=== PATIENT | male | born 1955 | race Caucasian/White ===

== ENCOUNTER → 2018-03-14 11:17 | Outpatient (CLI) | payer MEDICARE, OTHER, SELFPAY ==
[2017-11-27 07:33] VITALS: BMI 29.5
[2018-03-14 14:34] LABS: Hemoglobin A1c 5.4 % (4.2-6.3)
[2018-03-14 14:39] LABS: Anion Gap 9 (5-15); BUN 21 mg/dL (7-18); BUN/Creat Ratio 18.3 RATIO (10-20); Chloride 107 mmol/L (98-107); Cholesterol 165 mg/dL (200); Creatinine, Serum 1.15 mg/dL (0.70-1.30); EST Glomerular Filtration Rate 68 mL/min (>60); Est Glom Filt Rate - Afr Amer 82 mL/min (>60); Glucose 108 mg/dL (74-106); High Density Lipoprotein 67 mg/dL; PSA,Total - Annual Screen 0.82 ng/mL (0.00-4.00); Potassium 3.4 mmol/L (3.5-5.1); Sodium Level 142 mmol/L (136-145); Thyroid Stim Hormone (TSH) 3.55 uIU/mL (0.358-3.74); Triglycerides 135 mg/dL; Very Low Density Lipoprotein 27 mg/dL (5-40)
== END ==
PROVIDERS: Family Provider Family Medicine; PCP Family Medicine; Visit Provider Family Medicine
DX: R73.09 Other abnormal glucose (principal); E03.9 Hypothyroidism, unspecified; E78.00 Pure hypercholesterolemia, unspecified; Z12.5 Encounter for screening for malignant neoplasm of prostate; I10 Essential (primary) hypertension
CPT/HCPCS: 36415; 80048; 80061; 83036; 84153; 84443; G0103

== ENCOUNTER 2018-09-20 19:49 | Inpatient (IN) | payer MEDICARE, OTHER, SELFPAY ==
[2018-09-20] VITALS (7 sets, daily range): BP systolic 131–177; BP diastolic 86–140; PULSE 99–167; RESP 15–32; TEMP 36.6–36.8; O2SAT 97–100; BMI 29.5; BMI 27.3
[2018-09-20] MEDS: Famotidine 20mg IV Push Syringe Q24 300 MG IV (19:58)
[2018-09-20] MEDS: DiphenhydrAMINE 50 MG/ML Syringe 25 MG IV (20:00)
[2018-09-20] MEDS: MethylPREDNISolone 125 MG/2 ML Vial IV (20:00)
--- NOTE | 2018-09-20 20:02 | ED.VISSUMM ---
- ER Visit Summary Date of Service: 09/20/18 Chief Complaint: Allergic reaction with swelling of his eyes lips and tongue. Patient states this occurred within the last hour. History of Present Illness: The patient is a 63 M history of A. fib, TIA and hypertension. Currently on Eliquis for A. fib. He is also on an TAMI inhibitor for his blood pressure. States he never had a reaction like this before. Within the last hour he has had initially itching of his eyes and then they began swelling along with his lips and tongue. Squad was called. They gave him IM epinephrine. And IV Benadryl. He states he is starting to feel somewhat better. He denies any chest pain or shortness of breath. Physical Examination: Older male vital signs initial blood pressure 166/40 afebrile. Heart rate 137 pulse ox 100% on 100% mask. HEENT exam patient has periorbital swelling. Swelling of his lips and tongue and submental region. Currently his airway is patent. He cannot open his mouth about 2 fingerbreadths. Neck is nontender. Trachea midline. Lungs clear to auscultation bilaterally. Heart tachycardic rate about 1 30-1 40 no murmur. Chest wall nontender. Abdomen soft nontender. Patient is moving all 4 extremities. He has trace edema in both lower extremities. Neurologically is awake and alert with no focal motor deficits. Test Results: CBC hemogram shows a white count of 6. Hemoglobin 16. Electrolytes unremarkable except glucose 172. Creatinine 1.7 which is worse than his baseline. Troponin normal. EKG A. fib RVR with a rate of 140 with a rate dependent ST depression. Emergency Department Course and Treatment: Patient is having either an TAMI inhibitor induced reaction called angioneurotic edema or acute allergic reaction. He needs to be watched very carefully. If he gets worse at all we will have to place a endotracheal tube. At this time is maintaining his airway. I want to see if he has additional positive results with the medications. We have also given him IV Solu-Medrol, Pepcid and additional Benadryl. Multiple repeat exams over the patient's emergency department course. He is progressively getting better with his multiple medications. He was also given Cardizem for his A. fib RVR his rate is currently 90. Patient looks a lot better. The swelling of his lips and tongue is more than 50% improved. His eyes are less swollen. He is having no trouble breathing whatsoever. Treatment Plan: Discussed at length with both he and his . This could be an acute anaphylactic reaction to mushrooms or it may be an angioneurotic edema from the TAMI inhibitor. I would consider it and treated for both. I would stop the TAMI inhibitor. No changes blood pressure medication I explained that there are them. I spoken to the hospitalist will put him in the PCU. Disposition: Admission Impression: Acute allergic reaction with swelling of the lips tongue and eyes (TAMI inhibitor induced angioneurotic edema versus acute anaphylaxis) A. fib RVR Anticoagulated on Eliquis. This note was generated with [employer] dictation software. It may contain incorrect words, spelling, and punctuation that were not noted in review of the chart prior to signing ED Disposition - Plan for ED Patient: Referrals: Russ Andre MD [Primary Care Provider] -
--- NOTE | 2018-09-20 20:23 | ED.RN ---
CALLED FOR EKG PER RN REQUEST, PULLED OLD EKGS FOR
[2018-09-20 20:40] LABS: Absolute Lymphocyte Count 3.06 X10^3/ul (0.83-4.51); Absolute Neutrophil Count 3.4 X10^3/uL (2.0-7.7); Basophil# 0.02 X10^3/uL; Basophil% 0.3 % (0-1); Eosinophil# 0.11 X10^3/uL; Eosinophils% 1.6 % (0-5); Hematocrit 47.4 % (40-54); Hemoglobin 16.5 g/dl (13.0-16.5); Lymphocyte # 3.06 X10^3/ul (4.0); Lymphocyte % 44.1 % (19-41); Mean Corp Hgb Conc 34.8 g/gl (32-36); Mean Corpuscular Hgb 33.4 pg (27.0-32.0); Monocyte# 0.34 X10^3/uL; Monocyte% 4.9 % (0-10); POSITIVE COUNT NO; POSITIVE DIFFERENTIAL NO; POSITIVE MORPHOLOGY NO; Platelet Count 224 K/mm3 (150-450); RBC Distribution Width CV 13.3 % (11.6-14.6); RBC Distribution Width SD 46.4 fl (35.1-43.9); Red Blood Count 4.94 M/mm3 (4.6-6.2); White Blood Count 6.9 K/mm3 (4.4-11.0)
[2018-09-20 20:55] LABS: Anion Gap 10 (5-15); BUN 20 mg/dL (7-18); BUN/Creat Ratio 11.6 RATIO (10-20); Calcium,Total 8.8 mg/dL (8.5-10.1); Chloride 107 mmol/L (98-107); Creatinine, Serum 1.72 mg/dL (0.70-1.30); EST Glomerular Filtration Rate 43 mL/min (>60); Est Glom Filt Rate - Afr Amer 52 mL/min (>60); Estimated Creatinine Clearance 37.25 ml/min; Glucose 172 mg/dL (74-106); Potassium 3.4 mmol/L (3.5-5.1); Sodium Level 139 mmol/L (136-145)
[2018-09-20] MEDS: dilTIAZem 25 MG/5 ML Vial IV BOLUS (21:10)
--- NOTE | 2018-09-20 21:33 | PCM.HP.STD ---
Problem List (1) Anaphylactic reaction Status: Acute History of Present Illness Date of Admission: 09/20/18 Chief Complaint: swelling of lips and tongue The patient is a 63 year old M with a significant history of A. 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 Also he had swelling of her eye eyelids; itchy eyes; itchy palms; and itching under his arm. Further, he was wheezing. Her gave her Benadryl 2 times. Because she was not getting better the squad was called. The squad give him epinephrine. His symptoms started after eating a piece of the had mushroom; sausage pepperoni and a salad. At the emergency department patient was found to be in A. fib with rate in the 160s. Patient responded to Cardizem bolus that brought her heart rate into the 90s. At the emergency department patient was given Solu-Medrol; Pepcid and Benadryl. Past Medical History Past Medical History (Chronic Problems): Chronic Problems (Last Reviewed 11/27/17 @ 07:34 by Mair Quiros) Tobacco dependence in remission (Chronic) Abdominal discomfort (Chronic) Obstructive sleep apnea (Chronic) BiPAP 14/10 cmH2O Secondary pulmonary arterial hypertension (Chronic) History of left heart catheterization (Chronic ~10/19/16) Hypothyroidism (Chronic) HLD (hyperlipidemia) (Chronic) HTN (hypertension) (Chronic) Medical History: Medical History (Last Reviewed 09/21/18 @ 05:43 by Narendra Luevano MD) Tobacco dependence in remission (Chronic) F17.201 Abdominal discomfort (Chronic) R10.9 Persistent atrial fibrillation (Acute) I48.1 Obstructive sleep apnea (Chronic) G47.33 BiPAP 14/10 cmH2O Secondary pulmonary arterial hypertension (Chronic) I27.21 Hypothyroidism (Chronic) E03.9 HLD (hyperlipidemia) (Chronic) E78.5 HTN (hypertension) (Chronic) I10 Atrial fibrillation with RVR (Resolved) I48.91 TIA (transient ischemic attack) (Acute) G45.9 Near syncope (Acute) R55 Allergies banana Allergy (Verified 11/27/17 07:34) Unknown metoprolol [From Toprol XL] Adverse Reaction (Verified 11/27/17 07:34) Nausea Home Medications: Ambulatory Orders Medication Instructions Recorded Apixaban [Eliquis] 5 mg PO BID 09/19/16 Aspirin 81 mg PO DAILY 09/19/16 Levothyroxine [Synthroid] 50 mcg PO QHS 09/19/16 Omeprazole [Prilosec] 20 mg PO DAILY 09/19/16 Simvastatin [Zocor] 20 mg PO QHS 09/19/16 carvedilol 25 mg tablet 12.5 mg PO BID tab 03/15/17 Diltiazem CD [Cardizem CD] 300 mg PO DAILY 09/20/18 Quinapril HCl 20 mg PO DAILY 09/20/18 Triamterene/Hydrochlorothiazid 1 tab PO DAILY 09/20/18 [Triamterene-Hctz 37.5-25 mg Tb] Surgical History: Surgical History (Last Reviewed 09/21/18 @ 05:43 by Narendra Luevano MD) History of cardioversion (Acute) Onset Date: ~11/14/16 Z98.890 History of left heart catheterization (Chronic) Onset Date: ~10/19/16 Z98.890 History of tonsillectomy (Resolved) Z90.89 Patent ductus arteriosus (Resolved) Q25.0 closure at age 1 Lives: Spouse/ Significant Other Smoking Status: Former smoker - *Family History Maternal Family History: Family History (Last Reviewed 09/21/18 @ 05:36 by Narendra Luevano MD) Mother Hypertension Review of Systems Constitutional: Denies: Chills, Fever, Weight Change HEENT: Denies: Head Aches, Sinus Congestion, Sinus Drainage Cardiovascular: Denies: Chest Pain, Palpitations Respiratory: Reports: Wheezing. Denies: Cough, Shortness of breath at rest, Sputum production Gastrointestinal: Denies: Abdominal Pain, Nausea, Vomiting Genitourinary: Denies: Dysuria Musculoskeletal: Denies: Joint Pain, Joint Tenderness Skin: Denies: Rash, Wounds Neurological: Denies: Numbness, Tingling, Focal weakness Psychiatric: Denies: Anxiety, Depression, Homicidal Ideations, Suicidal Ideations Hematologic/ Lymphatic: Denies: Easy Bruising, Easy Bleeding VTE Information - Inpt Only VTE Present on Admission: No VTE Mechan Device Prophylaxis: None VTE Pharm Prophylaxis ordered?: No Reason prophylaxis not ordered:: Treatment Not Indicated - Continue on home eliquis for Afib. Patient Problems: Active and Suspected Problems (Last Reviewed 11/27/17 @ 07:34 by Mari Quiros) Anaphylactic reaction (Acute) - Physical Exam General: Alert, Oriented x3, Cooperative HEENT: Atraumatic, PERRLA, EOMI, Normocephalic, - - swelling of eye lids which had improved upon repeat examination. Neck: Supple, No JVD, Negative Carotid Bruits Lungs: Clear to auscultation, Normal air movement Cardiovascular: Regular rate, No murmurs Abdomen: Bowel Sounds Present, Soft, Non Tender Extremities: No edema, Capillary Refill Less than 3 Seconds Skin: No rashes, No breakdown Musculoskeletal: No Tenderness to Palpation of Joints or Extremities Neurological: Neuro grossly intact Psych/Mental Status: Normal Affect, Appropriate Vital Signs Temp Pulse Resp BP Pulse Ox 98 F 99 20 H 131/86 H 98 09/20/18 19:50 09/20/18 21:19 09/20/18 21:19 09/20/18 21:19 09/20/18 21:19 Oxygen Flow Rate (L/min) 2 Oxygen Delivery Method Nasal Cannula Weight: 80.4 kg Body Mass Index (BMI) 29.5 Laboratory Tests Past 24 Hrs 09/20/18 09/20/18 09/20/18 20:16 20:16 20:22 WBC 6.9 RBC 4.94 Hgb 16.5 Hct 47.4 MCV 96.0 H MCH 33.4 H MCHC 34.8 RDW 13.3 RDW Differential 46.4 H Plt Count 224 MPV 10.0 Immature Gran % (Auto) 0.100 Neut % (Auto) 49.0 Lymph % (Auto) 44.1 H [place] % (Auto) 4.9 Eos % (Auto) 1.6 Baso % (Auto) 0.3 Absolute Neuts (auto) 3.4 Absolute Lymphs (auto) 3.06 Total Counted Not Reportable Sodium 139 Potassium 3.4 L Chloride 107 Carbon Dioxide 22.0 Anion Gap 10 BUN 20 H Creatinine 1.72 H Estim Creat Clear Calc 37.25 Est GFR (MDRD) Af Amer 52 L Est GFR (MDRD) Non-Af 43 L BUN/Creatinine Ratio 11.6 Glucose 172 H Calcium 8.8 Troponin I < 0.015 Assessment/Plan All Active Problems (Last Reviewed 11/27/17 @ 07:34 by Mari Quiros) Anaphylactic reaction (Acute) Persistent atrial fibrillation (Acute) History of cardioversion (Acute ~11/14/16) Atrial fibrillation with RVR (Resolved) TIA (transient ischemic attack) (Acute) Near syncope (Acute) History of tonsillectomy (Resolved) Patent ductus arteriosus (Resolved) Atrial fibrillation (Acute) The patient is a 63 year old M with a significant history of A. fib with RVR with prior cardioversion; hypertension; congenital heart shunt repaired at age 1; TIA; hyperlipidemia; obstructive sleep apnea who presented to the emergency department with angioedema consistent with anaphylactic reaction that could likely be from food or from TAMI inhibitor. Anaphylactic reaction Epinephrine as needed ordered. Solu-Medrol; scheduled Benadryl; and Pepcid ordered. Admitted to PCU on telemetry. Hold quinapril for now. Afib with RVR Patient received Cardizem 20 mg IV bolus at emergency department. This controlled his heart rate temporarily. Because patient went to A. fib with RVR again we will restart Cardizem drip. Cardizem 5 mg IV bolus ordered. Last echocardiogram on 10/17/2016 among others showed mildly dilated left ventricle. Estimated ejection fraction of 50 to 55%. Mild global hypokinesis of the left ventricle. The left atrium was mildly enlarged. Right ventricular systolic pressure was estimated at 44 mmHg. Trivial mitral valve insufficiency; mild tricuspid valve insufficiency and trivial aortic valve insufficiency. Echocardiogram on 11/15/14 showed an EF of 45%. Pulmonary artery systolic pressure was 30. Patient had some valvular insufficiencies. Repeat echocardiogram ordered. Home Cardizem and Coreg continued. Eliquis continued TSH ordered. Echocardiogram ordered. Eliquis continued Hypokalemia: on presentation his potassium was 3.4. Supplementation ordered. BMP ordered. Chronic Systolic heart failure Echo as above Coreg continued Quinapril on hold secondary to angioedema Hypertension On presentation his blood pressure was not within goal Coreg continued P.o. Cardizem continued Started on Cardizem IV for A. fib which should help with blood pressure. Home triamterene?hydrochlorothiazide on hold because of MORENO. PRN clonidine ordered. Trend blood pressure and adjust blood pressure medication. MORENO On presentation his creatinine was 1.72. Creatinine baseline is around 1.2. BUN is 20. BUN over creatinine is more than 11.6. Can not rule out prerenal at this time. Gentle IV fluids. Avoid nephrotoxins. TAMI inhibitor on hold. Trend BMP. Obstructive sleep apnea BiPAP continued GERD Prilosec continued. Hypothyroidism Synthroid continued DVT prophylaxis Not indicated since patient is on Eliquis Coumadin for A. fib. Code Visit OBSV E&M: 96244 Initial observation care L3
--- NOTE | 2018-09-20 21:43 | EKG12_ITS ---
Test Reason : Blood Pressure : / mmHG Vent. Rate : 140 BPM Atrial Rate : 127 BPM P-R Int : 000 ms QRS Dur : 094 ms QT Int : 340 ms P-R-T Axes : 000 -47 255 degrees QTc Int : 519 ms Atrial fibrillation with rapid ventricular response Left anterior fascicular block ST depression, consider subendocardial injury Nonspecific T wave abnormality Abnormal ECG Confirmed by LAW ANGELES MD ([id number]), greeting card editor ARTURO MAC ([id number]) on 09/23/2018 9:32:34 AM Referred By: Narendra Luevano Confirmed By:LAW ANGELES MD
--- NOTE | 2018-09-20 23:36 | ECHOD_ITS ---
Reason For Study: AFIB/FLUTTER Procedure This was a 2D Doppler, Color Flow transthoracic echocardiogram. The study was technically difficult. Due to arrhythmia. Exam performed portable in patient room. Left Ventricle Normal LV size. Left ventricular systolic function is normal. The estimated ejection fraction is 55 %. Unable to assess diastolic dysfunction due to arrhythmia. No regional wall motion abnormalities noted. Right Ventricle Normal RV size. Normal systolic function. Atria The left atrium is moderately enlarged. The right atrium is mildly enlarged. Mitral Valve Normal mitral valve. Mild (1+) eccentric mitral valve insufficiency. Tricuspid Valve Normal tricuspid valve. Mild (1+) tricuspid valve insufficiency. Pulmonary artery systolic pressure is 38 mmHg. Aortic Valve Normal aortic valve. Trisinus/trileaflet aortic valve. Mild (1+) aortic valve insufficiency. Pulmonic Valve Normal pulmonic valve. Great Vessels Normal aortic root. The pulmonary artery is normal size. Normal inferior vena cava. Pericardium/Pleural No pericardial effusion. MMode/2D Measurements & Calculations LVIDd: 5.3 cm IVSd: 0.86 cm Ao root diam: 3.4 cm LVIDs: 3.8 cm LVPWd: 0.94 cm RVDd: 4.0 cm FS: 27.7 % LAV(MOD-bp): 86.0 ml LA A4 area: 25.8 cm2 LA dimension(2D): 5.2 cm LAV(MOD-bp) Indexed: 45.8 ml/m2 LAV(MOD-sp2): 83.9 ml LAV(MOD-sp4): 83.9 ml RA A4 area: 22.5 cm2 Doppler Measurements & Calculations MV E max timmy: 96.6 cm/sec Ao V2 max: 97.0 cm/sec LV V1 max: 77.4 cm/sec Ao max P.8 mmHg LV V1 max P.4 mmHg PA V2 max: 87.3 cm/sec TR max timmy: 287.8 cm/sec TR max P.1 mmHg Interpretation Summary Normal LV size. Left ventricular systolic function is normal. The estimated ejection fraction is 55 %. The left atrium is moderately enlarged. Unable to assess diastolic dysfunction due to arrhythmia. Mild (1+) tricuspid valve insufficiency. Ordering Physician: Narendra Luevano Referring Physician: Russ Andre Performed By: Reena Nieves RDCS, RVT
[2018-09-21] VITALS (37 sets, daily range): BP systolic 122–178; BP diastolic 75–109; PULSE 83–147; RESP 15–22; TEMP 36.6–37; O2SAT 96–100
[2018-09-21] MEDS: 0.9% Normal Saline 1,000 ML 100 ML IV (00:17)
[2018-09-21] MEDS: dilTIAZem 25 MG/5 ML Vial 5 MG IV BOLUS (00:18)
[2018-09-21] MEDS: DiphenhydrAMINE 25 MG Capsule PO ×4 (00:24→21:45)
[2018-09-21 00:36] LABS: Magnesium 1.9 mg/dL (1.6-2.6); Thyroid Stim Hormone (TSH) 6.68 uIU/mL (0.358-3.74)
[2018-09-21 06:09] LABS: Anion Gap 13 (5-15); BUN 19 mg/dL (7-18); BUN/Creat Ratio 12.9 RATIO (10-20); Calcium,Total 8.8 mg/dL (8.5-10.1); Chloride 113 mmol/L (98-107); Creatinine, Serum 1.47 mg/dL (0.70-1.30); EST Glomerular Filtration Rate 51 mL/min (>60); Est Glom Filt Rate - Afr Amer 62 mL/min (>60); Estimated Creatinine Clearance 45.21 ml/min; Glucose 188 mg/dL (74-106); Sodium Level 145 mmol/L (136-145)
[2018-09-21] MEDS: Levothyroxine 50 MCG Tablet PO (06:33)
[2018-09-21] MEDS: 0.9% NaCl Peripheral Flush Adult/Peds IV (06:34)
[2018-09-21] MEDS: Aspirin 81 MG TAB.CHEW PO (09:12)
[2018-09-21] MEDS: Pantoprazole Sodium 20 MG Tablet PO (09:13)
[2018-09-21] MEDS: Carvedilol 25 MG Tablet PO ×2 (09:13→21:45)
[2018-09-21] MEDS: dilTIAZem CD 300 MG Capsule PO (09:13)
[2018-09-21] MEDS: APIXABAN 5 MG TABLET PO ×2 (09:13→21:45)
[2018-09-21 10:13] LABS: T4 Free Direct 0.87 ng/dL (0.76-1.46)
--- NOTE | 2018-09-21 15:41 | PN_ITS ---
<Vincenzo Ang - Last Filed: 09/21/18 15:34> Patient Problems: Active and Suspected Problems (Last Reviewed 09/21/18 @ 05:43 by Narendra Luevano MD) Anaphylactic reaction (Acute) Subjective: SOB and wheezing resolved. No CP. Pt developed eye, mouth, tongue swelling, and palm and axilla itching, along with wheezing, after eating sausage and mushroom pizza. He is however, on quinipril. This has been stopped. Swelling remains resolved. He has been in Afib with RVR. This improved with cardizem drip and increased dose of carvedilol. - Physical Exam General: Alert, Oriented x3, Cooperative HEENT: Atraumatic, PERRLA, EOMI, Normocephalic Neck: Supple, No JVD, Negative Carotid Bruits Lungs: Clear to auscultation, Normal air movement Cardiovascular: No murmurs, Irregular Rate Abdomen: Bowel Sounds Present, Soft, Non Tender Extremities: No edema, Capillary Refill Less than 3 Seconds Skin: No rashes, No breakdown Musculoskeletal: No Tenderness to Palpation of Joints or Extremities Neurological: Cranial nerves II-XII grossly intact Psych/Mental Status: Normal Affect, Appropriate, Alert and oriented to time, place, person, mood and affect Vital Signs Temp Pulse Resp BP Pulse Ox 98.4 F 88 16 145/98 H 99 09/21/18 14:00 09/21/18 14:00 09/21/18 14:00 09/21/18 14:00 09/21/18 14:00 Oxygen Flow Rate (L/min) 4 Oxygen Delivery Method Room Air Weight: 169 lb 1.513 oz Body Mass Index (BMI) 27.3 Intake and Output for Last 24 Hours 09/19/18 09/20/18 09/21/18 23:59 23:59 23:59 Intake Total 996.5 / 996.5 Output Total 1100 / 1100 Balance -103.5 / -103.5 Laboratory Tests Past 24 Hrs 09/20/18 09/20/18 09/20/18 20:16 20:16 20:16 WBC 6.9 RBC 4.94 Hgb 16.5 Hct 47.4 MCV 96.0 H MCH 33.4 H MCHC 34.8 RDW 13.3 RDW Differential 46.4 H Plt Count 224 MPV 10.0 Immature Gran % (Auto) 0.100 Neut % (Auto) 49.0 Lymph % (Auto) 44.1 H [place] % (Auto) 4.9 Eos % (Auto) 1.6 Baso % (Auto) 0.3 Absolute Neuts (auto) 3.4 Absolute Lymphs (auto) 3.06 Total Counted Not Reportable Sodium 139 Potassium 3.4 L Chloride 107 Carbon Dioxide 22.0 Anion Gap 10 BUN 20 H Creatinine 1.72 H Estim Creat Clear Calc 37.25 Est GFR (MDRD) Af Amer 52 L Est GFR (MDRD) Non-Af 43 L BUN/Creatinine Ratio 11.6 Glucose 172 H Calcium 8.8 Magnesium Troponin I TSH 6.68 H Free T4 09/20/18 09/20/18 09/21/18 20:16 20:22 05:05 WBC RBC Hgb Hct MCV MCH MCHC RDW RDW Differential Plt Count MPV Immature Gran % (Auto) Neut % (Auto) Lymph % (Auto) [place] % (Auto) Eos % (Auto) Baso % (Auto) Absolute Neuts (auto) Absolute Lymphs (auto) Total Counted Sodium 145 Potassium 4.0 Chloride 113 H Carbon Dioxide 19.0 L Anion Gap 13 BUN 19 H Creatinine 1.47 H Estim Creat Clear Calc 45.21 Est GFR (MDRD) Af Amer 62 Est GFR (MDRD) Non-Af 51 L BUN/Creatinine Ratio 12.9 Glucose 188 H Calcium 8.8 Magnesium 1.9 Troponin I < 0.015 TSH Free T4 09/21/18 05:05 WBC RBC Hgb Hct MCV MCH MCHC RDW RDW Differential Plt Count MPV Immature Gran % (Auto) Neut % (Auto) Lymph % (Auto) [place] % (Auto) Eos % (Auto) Baso % (Auto) Absolute Neuts (auto) Absolute Lymphs (auto) Total Counted Sodium Potassium Chloride Carbon Dioxide Anion Gap BUN Creatinine Estim Creat Clear Calc Est GFR (MDRD) Af Amer Est GFR (MDRD) Non-Af BUN/Creatinine Ratio Glucose Calcium Magnesium Troponin I TSH Free T4 0.87 Medical Necessity - Tobacco Use Smoking Status: Former smoker Assessment/Plan All Active Problems (Last Reviewed 09/21/18 @ 05:43 by Narendra Luevano MD) Anaphylactic reaction (Acute) Persistent atrial fibrillation (Acute) History of cardioversion (Acute ~11/14/16) Atrial fibrillation with RVR (Resolved) TIA (transient ischemic attack) (Acute) Near syncope (Acute) History of tonsillectomy (Resolved) Patent ductus arteriosus (Resolved) Atrial fibrillation (Acute) 1. Anaphylaxis, suspect angioedema 2/2 quinipril - sob/wheezing/swelling/itching now resolved. Continue benadryl, solumedrol, pepcid. TSH elevated, T4 normal. Potassium normalized. 2. Afib with RVR - weaned off cardizem drip. Plan to continue increased dose of coreg and prior cardizem dose. Continue eliquis. Echo pending. Prior EF of 45% 3. HTN - improved. 4. MORENO - improved. continue gentle IV hydration 5. NANETTE - Bipap qhs DVT ppx: eliquis DC Planning: likely home tomorrow, obtain echo, trend HR/BP with med adjustments This patient was seen by Vincenzo Ang PA-C under the supervision of Dr. Bourgeois <Tej Bourgeois F - Last Filed: 09/22/18 08:35> - Physical Exam Vital Signs Temp Pulse Resp BP Pulse Ox 97.7 F L 93 18 150/86 H 94 09/22/18 06:13 09/22/18 06:45 09/22/18 06:13 09/22/18 06:13 09/22/18 06:13 Oxygen Flow Rate (L/min) 4 Oxygen Delivery Method Room Air Weight: 169 lb 1.513 oz Body Mass Index (BMI) 27.3 Intake and Output for Last 24 Hours 09/20/18 09/21/18 09/22/18 23:59 23:59 23:59 Intake Total 996.5 / 996.5 360 / 360 Output Total 1100 / 1100 Balance -103.5 / -103.5 359 / 359 Laboratory Tests Past 24 Hrs 09/21/18 05:05 Free T4 0.87 Code Visit Addendum: Dr. Bourgeois I personally examined the patient and reviewed the chart. I agree with the above. 63 yo M who is extremely allergic to bananas came in with what sounded like an anaphylactic reaction vs angioedema. He seems to be much improved at the moment. Plan to continue steroids and benadryl for 1 more day. Continue to hold his TAMI-I. He is also in afib with RVR and he was started on a cardizem drip. Will continue with his oral cardizem and increase his coreg dose. Can DC the drip and monitor. His TSH is elevated and an echo is pending. Inpatient E&M: 58164 Subs Hosp L2
[2018-09-21] MEDS: Atorvastatin Calcium 10 MG Tablet PO (21:45)
[2018-09-22] VITALS (7 sets, daily range): BP systolic 132–151; BP diastolic 80–86; PULSE 79–115; RESP 16–18; TEMP 36.5–36.6; O2SAT 94–100
[2018-09-22] MEDS: DiphenhydrAMINE 25 MG Capsule PO (06:15)
[2018-09-22] MEDS: Levothyroxine 50 MCG Tablet PO (06:15)
[2018-09-22] MEDS: Aspirin 81 MG TAB.CHEW PO (07:48)
[2018-09-22] MEDS: APIXABAN 5 MG TABLET PO (09:18)
[2018-09-22] MEDS: Pantoprazole Sodium 20 MG Tablet PO ×2 (09:18)
[2018-09-22] MEDS: Carvedilol 25 MG Tablet PO (09:18)
[2018-09-22] MEDS: Famotidine 20 MG Tablet PO (09:21)
[2018-09-22] MEDS: dilTIAZem CD 300 MG Capsule PO (09:21)
--- NOTE | 2018-09-22 09:22 | NURSING ---
Echo being done at bedside.
--- NOTE | 2018-09-22 10:37 | CASEMGMT ---
RN CM Assessment Presentation: Swelling of lips and tongue, likely due to Quniopril Intro role of CM and purpose of RN CM assessment with patient in room. Pt is awake, alert and able to participate in assessment. Demographics, PCP and Pharmacy verified. Discussed that pt will have medication changes that nursing will review prior to dc. Pt states he has good understanding of medications, does not anticipate issue. PCP: Dr. Russ Andre Preferred Pharmacy: [facility] Insurance: [facility] Prescription Benefit: yes LNOK: , Hilda Jc Living Arrangements: Pt lives independently with . No care needs noted. Transportation: drives DME: none HHC: none Patient DC goals: Home today DC PLAN: Home, no needs identified. Melissa ROBISONN RN ACM
--- NOTE | 2018-09-22 10:57 | CASEMGMT ---
Patient has a Healthcare POA and Healthcare LW on file at [facility]. [place] [employer]
--- NOTE | 2018-09-22 11:18 | DCINST_ITS ---
- Discharge Diagnoses Current Active Problems: Current Active and Chronic Problems (Last Reviewed 09/21/18 @ 05:43 by Narendra Luevano MD) Anaphylactic reaction (Acute) You will use the following diet at home:: Cardiac Your food should be the consistency of: Regular Your liquids should be the consistency of: Regular/Thin Discharge Activity: Return to Normal Activity Allergies/Adverse Reactions: Allergies banana Allergy (Verified 11/27/17 07:34) Unknown metoprolol [From Toprol XL] Adverse Reaction (Verified 11/27/17 07:34) Nausea Medications to take at Discharge Apixaban [Eliquis] 5 mg PO BID 09/19/16 Aspirin 81 mg PO DAILY 09/19/16 Levothyroxine [Synthroid] 50 mcg PO QHS 09/19/16 Omeprazole [Prilosec] 20 mg PO DAILY 09/19/16 Simvastatin [Zocor] 20 mg PO QHS 09/19/16 Diltiazem CD [Cardizem CD] 300 mg PO DAILY 09/20/18 Triamterene/Hydrochlorothiazid [Triamterene-Hctz 37.5-25 mg Tb] 1 tab PO DAILY 09/20/18 Carvedilol [Coreg (Beta Ravinder)] 25 mg PO BID #60 tab 09/22/18 DiphenhydrAMINE [Benadryl] 25 mg PO TID #9 capsule 09/22/18 Famotidine [Pepcid] 20 mg PO DAILY #3 tablet 09/22/18 Prednisone 10 mg PO UD #30 tab 09/22/18 The following prescriptions were given: Carvedilol [Coreg (Beta Ravinder)] 25 mg PO BID #60 tab Prednisone 10 mg PO UD #30 tab Primary Care Physician: Russ Andre MD [Primary Care Provider] - Please follow up with your Primary Care Physician in: 1-2 weeks Test Results: Test results from this visit will be discussed in further detail at your follow- up appointment, if applicable. Please Follow Up With: Rosendo Upton MD When: 3-4 weeks Proposed Discharge Date: 09/22/18
--- NOTE | 2018-09-22 16:30 | PCM.DC.SUM ---
<Vincenzo Ang - Last Filed: 09/22/18 16:30> Discharge Date and Diagnosis Date of Admission: 09/20/18 Date of Discharge: 09/22/18 - Primary Discharge Diagnosis Anaphylaxis, angioedema 2/2 quinapril Afib with RVR MORENO 2/2 above HTN NANETTE - Secondary Discharge Diagnosis Chronic Problems (Last Reviewed 09/21/18 @ 05:43 by Narendra Luevano MD) Tobacco dependence in remission (Chronic) Abdominal discomfort (Chronic) Obstructive sleep apnea (Chronic) BiPAP 14/10 cmH2O Secondary pulmonary arterial hypertension (Chronic) History of left heart catheterization (Chronic ~10/19/16) Hypothyroidism (Chronic) HLD (hyperlipidemia) (Chronic) HTN (hypertension) (Chronic) Hospital Course and Treatment Imaging Results: Echo: Interpretation Summary Normal LV size. Left ventricular systolic function is normal. The estimated ejection fraction is 55 %. The left atrium is moderately enlarged. Unable to assess diastolic dysfunction due to arrhythmia. Mild (1+) tricuspid valve insufficiency. Procedures: 2-D Echocardiogram Summary of Care Provided: Hospital Course: The patient is a 63 year old M with pmhx of afib, pt of Dr. Upton, HTN, NANETTE, who presents to the ER with c/o swelling of his face, tongue with SOB and wheezing after eating a pizza. He is on quinapril for HTN. He was given Epi, solumedrol, benadryl, and pepcid IV for anaphylaxis/angioedema. He also appeared to have MORENO with elevated BUN and Creatinine. Quinapril was stopped. He was admitted to PCU and maintained on steroids, benadryl, and pepcid. He was given IV fluids for MORENO. He was in Afib with RVR at presentation as well. His Coreg and increased and he was started on cardizem drip. His rate was well controlled so the cardizem was weaned and he was kept on the higher dose of Coreg. An echo was obtained which was unremarkable. His breathing remained stable off O2, and he had no further swelling or wheezing. He was advised to continue benadryl and pepcid for a total of 5 days and given a prednisone taper. He was prescribed the higher dose of coreg. He was advised to follow up with his PCP in 1-2 weeks and with cardiology in 3-4 weeks. This patient was seen by Vincenzo Ang PA-C under the supervision of Dr. Olsen. [] - Physical Exam General: Alert, Oriented x3, Cooperative HEENT: Atraumatic, PERRLA, EOMI, Normocephalic Neck: Supple, No JVD, Negative Carotid Bruits Lungs: Clear to auscultation, Normal air movement Cardiovascular: Regular rate, No murmurs, Irregular Rate Abdomen: Bowel Sounds Present, Soft, Non Tender Extremities: No edema, Capillary Refill Less than 3 Seconds Skin: No rashes, No breakdown Musculoskeletal: No Tenderness to Palpation of Joints or Extremities Neurological: Cranial nerves II-XII grossly intact Psych/Mental Status: Normal Affect, Appropriate Vital Signs Temp Pulse Resp BP Pulse Ox 97.9 F 92 16 151/80 H 100 09/22/18 10:44 09/22/18 10:44 09/22/18 10:44 09/22/18 10:44 09/22/18 10:44 Oxygen Flow Rate (L/min) 4 Oxygen Delivery Method Room Air Weight: 169 lb 1.513 oz Body Mass Index (BMI) 27.3 Intake and Output for Last 24 Hours 09/20/18 09/21/18 09/22/18 23:59 23:59 23:59 Intake Total 996.5 / 996.5 600 / 600 Output Total 1100 / 1100 Balance -103.5 / -103.5 599 / 599 Discharge Diet: Low fat/ Low Cholesterol, 2000 mg Sodium Diet Discharge Activity: Return to Normal Activity Home Medications: Medications to take at Discharge Apixaban [Eliquis] 5 mg PO BID 09/19/16 Aspirin 81 mg PO DAILY 09/19/16 Levothyroxine [Synthroid] 50 mcg PO QHS 09/19/16 Omeprazole [Prilosec] 20 mg PO DAILY 09/19/16 Simvastatin [Zocor] 20 mg PO QHS 09/19/16 Diltiazem CD [Cardizem CD] 300 mg PO DAILY 09/20/18 Triamterene/Hydrochlorothiazid [Triamterene-Hctz 37.5-25 mg Tb] 1 tab PO DAILY 09/20/18 Carvedilol [Coreg (Beta Ravinder)] 25 mg PO BID #60 tab 09/22/18 DiphenhydrAMINE [Benadryl] 25 mg PO TID #9 capsule 09/22/18 Famotidine [Pepcid] 20 mg PO DAILY #3 tablet 09/22/18 Prednisone 10 mg PO UD #30 tab 09/22/18 Following Prescrptions Were Given to Patient: Carvedilol [Coreg (Beta Ravinder)] 25 mg PO BID #60 tab Prednisone 10 mg PO UD #30 tab Primary Care Physician: Russ Andre MD [Primary Care Provider] - Please follow up with your Primary Care Physician in: 1-2 weeks Please Follow Up With: Rosendo Upton MD When: 3-4 weeks Please Follow Up With: Russ Andre MD Disposition: Home Minutes spent on discharge:: 35 Patient Condition:: Stable Medical Necessity - Tobacco Use Smoking Status: Former smoker Meaningful Use Info Meaningful Use Diagnoses (Choose all that apply): None applicable <RaúlJarad - Last Filed: 09/22/18 16:56> Discharge Date and Diagnosis - Secondary Discharge Diagnosis Chronic Problems (Last Reviewed 09/21/18 @ 05:43 by Narendra Luevano MD) Tobacco dependence in remission (Chronic) Abdominal discomfort (Chronic) Obstructive sleep apnea (Chronic) BiPAP 14/10 cmH2O Secondary pulmonary arterial hypertension (Chronic) History of left heart catheterization (Chronic ~10/19/16) Hypothyroidism (Chronic) HLD (hyperlipidemia) (Chronic) HTN (hypertension) (Chronic) Hospital Course and Treatment Summary of Care Provided: This patient was seen in conjunction with Vincenzo WALKER. I have independently interviewed and examined the patient and reviewed pertinent history, examination findings, laboratory and plan of management. I have reviewed the note and agree with the documented findings with the few additional points. In brief, patient is admitted for shortness of breath and wheezing associated with tongue and facial swelling after eating mushroom pizza. Patient also on hypertension. Patient was treated with IV Solu-Medrol, epinephrine, Benadryl and Pepcid. Shortness of breath resolved. Quinapril was stopped. MORENO resolved with IV fluid. A. fib with RVR on admission. Rate was controlled with Cardizem drip just tapered off. Coreg was increased. Discharge medication reconciliation done. Discharge follow-up instructions completed. Discharge process discussed with the patient and all questions were answered to patient's satisfaction. Prescription for Coreg 25 mg twice daily was given. Total time spent, exact 35 minutes on discharge meds reconciliation, examination, review of imaging and blood test and discussion with the patient on follow-up instructions. I have discussed my assessment with Vincenzo WALKER and orders have been reviewed. [] Subjective: Patient denies problem in swallowing, dysphonia or swelling of tongue. Patient recovered from angioedema. - Physical Exam General: Alert, Oriented x3, Cooperative HEENT: Atraumatic, PERRLA, EOMI, Normocephalic Oral: No Gingival or Mucosal Lesions/ Ulcerations, - Neck: Supple, No JVD, Negative Carotid Bruits Lungs: Clear to auscultation, Normal air movement, No rhonchi, No wheeze, No rales Cardiovascular: Normal S1, Normal S2, No murmurs, Irregular Rate Abdomen: Bowel Sounds Present, Soft, Non Tender, Non-Distended Extremities: No edema, Capillary Refill Less than 3 Seconds Skin: No rashes, No breakdown Musculoskeletal: No Tenderness to Palpation of Joints or Extremities, Arthritic Changes Neurological: Cranial nerves II-XII grossly intact Psych/Mental Status: Normal Affect, Appropriate Vital Signs Temp Pulse Resp BP Pulse Ox 97.9 F 92 16 151/80 H 100 09/22/18 10:44 09/22/18 10:44 09/22/18 10:44 09/22/18 10:44 09/22/18 10:44 Oxygen Flow Rate (L/min) 4 Oxygen Delivery Method Room Air Weight: 169 lb 1.513 oz Body Mass Index (BMI) 27.3 Intake and Output for Last 24 Hours 09/20/18 09/21/18 09/22/18 23:59 23:59 23:59 Intake Total 996.5 / 996.5 600 / 600 Output Total 1100 / 1100 Balance -103.5 / -103.5 599 / 599 Code Visit Inpatient E&M: 56837 Disch Hosp
--- NOTE | 2018-09-23 15:02 | CASEMGMT ---
ALBERTO CM DC PHONE CALL DC DATE: 09/23/18 DC Disposition: Home LACE/STRATA: 01/08 Attempted call to home phone. No answer. Melissa ROBISONN RN ACM
== END 2018-09-22 12:54 | disposition home or self-care (01) | DRG 916 ==
LOC: ED 20:21 → PCU 22:38
PROVIDERS: Physician Assistant; Admitting Provider Hospitalist; Emergency Provider Emergency Medicine; Family Provider Family Medicine; PCP Family Medicine; Referring Provider Hospitalist; Visit Provider Internal Medicine
DX: T88.6XXA Anaphylactic reaction due to adverse effect of correct drug or medicament properly administered, initial encounter (principal); I50.22 Chronic systolic (congestive) heart failure; N17.9 Acute kidney failure, unspecified; T46.4X5A Adverse effect of angiotensin-converting-enzyme inhibitors, initial encounter; E87.6 Hypokalemia; E03.9 Hypothyroidism, unspecified; G47.33 Obstructive sleep apnea (adult) (pediatric); I11.0 Hypertensive heart disease with heart failure; I48.91 Unspecified atrial fibrillation; I27.21 Secondary pulmonary arterial hypertension; E78.5 Hyperlipidemia, unspecified; F17.201 Nicotine dependence, unspecified, in remission; T78.3XXA Angioneurotic edema, initial encounter; K21.9 Gastro-esophageal reflux disease without esophagitis
CPT/HCPCS: 36415; 80048; 83735; 84439; 84443; 84484; 85025; 93005; 93306; 97162; 97165; 99251; 99285; J7030; A4216; G0463; J3490

== ENCOUNTER → 2019-03-10 11:40 | Outpatient (CLI) | payer MEDICARE, OTHER, SELFPAY ==
[2018-11-24 09:42] VITALS: BMI 28.2
[2019-03-10 15:26] LABS: Anion Gap 8 (5-15); BUN 23 mg/dL (7-18); BUN/Creat Ratio 15.6 RATIO (10-20); Calcium,Total 9.1 mg/dL (8.5-10.1); Chloride 107 mmol/L (98-107); Creatinine, Serum 1.47 mg/dL (0.70-1.30); EST Glomerular Filtration Rate 51 mL/min (>60); Est Glom Filt Rate - Afr Amer 62 mL/min (>60); Glucose 94 mg/dL (74-106); Potassium 3.4 mmol/L (3.5-5.1); Sodium Level 139 mmol/L (136-145)
[2019-03-10 15:32] LABS: Hemoglobin A1c 5.3 % (4.2-6.3)
== END ==
PROVIDERS: Family Medicine; Family Provider Family Medicine; PCP Family Medicine; Referring Provider Family Medicine; Visit Provider Family Medicine
DX: R73.09 Other abnormal glucose (principal); I10 Essential (primary) hypertension
CPT/HCPCS: 36415; 80048; 83036

== ENCOUNTER → 2019-05-14 10:18 | Outpatient (CLI) | payer MEDICARE, OTHER, SELFPAY ==
[2019-05-14 09:33] VITALS: BMI 29.9
[2019-05-14 11:03] LABS: AST(SGOT) 45 U/L (15-37); Alanine Aminotransfer ALT/SGPT 50 U/L (16-61); Albumin, Serum 3.6 g/dL (3.2-5.0); Alkaline Phosphatase 162 U/L (45-117); Bilirubin, Direct 0.16 mg/dL (0.00-0.30); Cholesterol 152 mg/dL (200); Globulin 3.6 g/dL (2.2-4.2); High Density Lipoprotein 61 mg/dL; Protein, Total 7.2 g/dL (6.4-8.2); Triglycerides 230 mg/dL; Very Low Density Lipoprotein 46 mg/dL (5-40)
[2019-05-14 11:15] LABS: PSA,Total - Annual Screen 0.95 ng/mL (0.00-4.00); Thyroid Stim Hormone (TSH) 4.22 uIU/mL (0.358-3.74)
== END ==
PROVIDERS: PCP Family Medicine; Referring Provider Internal Medicine Cardiovascular Disease; Visit Provider Internal Medicine Cardiovascular Disease
DX: E78.5 Hyperlipidemia, unspecified (principal); E78.00 Pure hypercholesterolemia, unspecified; E03.9 Hypothyroidism, unspecified; Z12.5 Encounter for screening for malignant neoplasm of prostate
CPT/HCPCS: 36415; 80061; 80076; 84153; 84443; G0103

== ENCOUNTER → 2019-06-02 10:27 | Outpatient (CLI) | payer MEDICARE, OTHER, SELFPAY ==
[2019-05-14 09:33] VITALS: BMI 29.9
--- NOTE | 2019-06-02 10:28 | STEWCON_ITS ---
Reason For Study: AFIB/FLUTTER Stress Results Protocol: Yoandy Protocol WITH DEFINITY Maximum Predicted HR: 154 bpm Target HR: 131 bpm % Maximum Predicted HR: 101 % Heart Stage Duration Rate BP Comment (mm:ss) (bpm) NITRO 0.4 MG SL GIVEN FOR ELEVATED BLOOD BASELINE 96 162/94PRESSURES:178/102,184/104,192/104 STAGE 1 3:00 142 178/92 STAGE 2 3:00 151 182/100 STAGE 3 0:56 155 / INCREASED SOB, RECOVERY 100 150/884 CC DEFINITY FOR TEST Stress Duration: 6:56 mm:ss Maximum Stress HR: 155 bpm Baseline Echocardiogram Findings The estimated ejection fraction is 55 %. Stress Echo Wall motion Data Resting WM Intermediate WM Stress WM Resting Wall Motion Wall Motion Stress No regional wall motion No regional wall motion abnormalities noted. abnormalities noted. EKG Data Atrial fibrillatio with controlled ventricular response. The patient exercised according to the regular Yoandy protocol for a total duration of 6:56. The maximum heart rate attained was 157 beats per minute. This was 101% of maximum predicted heart rate. The patient exercised into stage 3 of the Yoandy protocol. During stress, there were no ST or T wave changes noted to suggest ischemia. No clinical angina was noted. Doppler Measurements & Calculations TR max timmy: 283.0 cm/sec TR max P.0 mmHg Interpretation Summary The estimated ejection fraction is 55 %. Normal, adequate, treadmill echocardiogram. Negative for ischemia by EKG and echocardiographic criteria. No anginal symptoms noted. Baseline atrial fibrillation which remained persistent throughout the procedure. Hypertensive blood pressure response to exercise. Test terminated due to the attainment target heart rate and dyspnea. Final LVEF of 65%. Decrease sensitivity due to poor echo windows requiring Definity agent. Patient tolerated procedure well. No complications. The study was technically difficult. Contrast injection was performed. Ordering Physician: Rosendo Upton Referring Physician: Rosendo Upton Performed By: Angella Newton RDCS
== END ==
PROVIDERS: PCP Family Medicine; Referring Provider Internal Medicine Cardiovascular Disease; Visit Provider Internal Medicine Cardiovascular Disease
DX: I25.10 Atherosclerotic heart disease of native coronary artery without angina pectoris (principal); I48.11 Longstanding persistent atrial fibrillation; I27.21 Secondary pulmonary arterial hypertension; I10 Essential (primary) hypertension; E78.5 Hyperlipidemia, unspecified
CPT/HCPCS: 93017; 93350; Q9957; A4216; C8928

== ENCOUNTER → 2019-09-15 09:43 | Outpatient (CLI) | payer MEDICARE, OTHER, SELFPAY ==
[2019-05-14 09:33] VITALS: BMI 29.9
--- NOTE | 2019-09-15 09:44 | ECHOD_ITS ---
Reason For Study: AFIB/FLUTTER Procedure This was a 2D Doppler, Color Flow transthoracic echocardiogram. Exam performed in department. Left Ventricle Normal size and thickness. The estimated ejection fraction is 65 %. Unable to assess diastolic dysfunction due to arrhythmia. No regional wall motion abnormalities noted. Right Ventricle Mildly dilated right ventricle. Mild global right ventricular systolic dysfunction. Atria The left atrium is severely enlarged. The right atrium is moderately enlarged. Normal atrial septum. Mitral Valve The mitral valve is structurally normal. No prolapse or stenosis seen. Trivial mitral valve insufficiency. Tricuspid Valve Normal tricuspid valve. Mild (1+) tricuspid valve insufficiency. Right ventricular systolic pressure estimated to be 51 mmHg. Moderate pulmonary hypertension. Aortic Valve Trisinus/trileaflet aortic valve. Mild diffuse aortic valve thickening. Mild (1+) aortic valve insufficiency. Pulmonic Valve Normal pulmonic valve. Great Vessels Normal aortic root. Normal arch. Normal inferior vena cava. Inferior vena cava collapse with sniff. Pericardium/Pleural No pericardial effusion. MMode/2D Measurements & Calculations LVIDd: 4.7 cm IVSd: 1.0 cm Ao root diam: 3.3 cm LVIDs: 2.9 cm LVPWd: 0.98 cm RVDd: 3.7 cm FS: 38.6 % LAV(MOD-bp): 103.0 ml LA A4 area: 29.6 cm2 LA dimension(2D): 4.4 cm LAV(MOD-bp) Indexed: 54.5 ml/m2 LAV(MOD-sp2): 101.4 ml LAV(MOD-sp4): 101.5 ml RA A4 area: 24.7 cm2 Doppler Measurements & Calculations MV E max timmy: 97.7 cm/sec Ao V2 max: 104.5 cm/sec AI max timmy: 458.1 cm/sec Ao max P.4 mmHg AI max P.9 mmHg Ao V2 mean: 71.3 cm/sec AI dec slope: 208.2 cm/sec2 Ao mean P.2 mmHg AI P1/2t: 644.4 msec Ao V2 VTI: 20.0 cm LV V1 max: 86.5 cm/sec PA V2 max: 81.9 cm/sec PI end-d timmy: 127.9 cm/sec LV V1 max P.0 mmHg LV V1 mean P.6 mmHg LV V1 mean: 60.2 cm/sec LV V1 VTI: 18.1 cm TR max timmy: 288.2 cm/sec TR max P.1 mmHg Interpretation Summary The estimated ejection fraction is 65 %. Unable to assess diastolic dysfunction due to arrhythmia. Mildly dilated right ventricle. Mild global right ventricular systolic dysfunction. The left atrium is severely enlarged. The right atrium is moderately enlarged. Trivial mitral valve insufficiency. Mild (1+) tricuspid valve insufficiency. Right ventricular systolic pressure estimated to be 51 mmHg. Moderate pulmonary hypertension. Mild (1+) aortic valve insufficiency. Compared to echo report dated 09/22/2018, LV function has remained the same, atrial chambers have enlarged, patient appears to be in atrial fibrillation, and RVSP is increased from 38 to 51 mmHg. Ordering Physician: Rosendo Upton Referring Physician: Russ Ruffin Performed By: Reena Nieves, DREW, RVT
== END ==
PROVIDERS: PCP Family Medicine; Referring Provider Internal Medicine Cardiovascular Disease; Visit Provider Internal Medicine Cardiovascular Disease
DX: I48.11 Longstanding persistent atrial fibrillation (principal); E78.5 Hyperlipidemia, unspecified; I25.10 Atherosclerotic heart disease of native coronary artery without angina pectoris; Q25.0 Patent ductus arteriosus
CPT/HCPCS: 93306

== ENCOUNTER → 2019-10-05 10:43 | Outpatient (CLI) | payer MEDICARE, OTHER, SELFPAY ==
[2019-05-14 09:33] VITALS: BMI 29.9
[2019-10-05 11:42] LABS: AST(SGOT) 54 U/L (15-37); Alanine Aminotransfer ALT/SGPT 65 U/L (16-61); Albumin, Serum 3.7 g/dL (3.2-5.0); Alkaline Phosphatase 166 U/L (45-117); Bilirubin, Direct 0.21 mg/dL (0.00-0.30); Cholesterol 123 mg/dL (200); Globulin 3.6 g/dL (2.2-4.2); High Density Lipoprotein 51 mg/dL; Protein, Total 7.3 g/dL (6.4-8.2); Triglycerides 233 mg/dL; Very Low Density Lipoprotein 47 mg/dL (5-40)
[2019-10-05 11:56] LABS: Thyroid Stim Hormone (TSH) 2.48 uIU/mL (0.358-3.74)
== END ==
PROVIDERS: PCP Family Medicine; Referring Provider Nurse Practitioner Family; Visit Provider Nurse Practitioner Family
DX: E78.5 Hyperlipidemia, unspecified (principal); E78.1 Pure hyperglyceridemia; E03.9 Hypothyroidism, unspecified
CPT/HCPCS: 36415; 80061; 80076; 84443

== ENCOUNTER → 2020-01-01 10:24 | Outpatient (CLI) | payer MEDICARE, OTHER, SELFPAY ==
[2019-11-10 08:38] VITALS: BMI 28.2
[2020-01-01 12:46] LABS: AST(SGOT) 53 U/L (15-37); Alanine Aminotransfer ALT/SGPT 60 U/L (16-61); Albumin, Serum 3.8 g/dL (3.2-5.0); Alkaline Phosphatase 168 U/L (45-117); Bilirubin, Direct 0.24 mg/dL (0.00-0.30); Cholesterol 133 mg/dL (200); Globulin 3.3 g/dL (2.2-4.2); High Density Lipoprotein 52 mg/dL; Protein, Total 7.1 g/dL (6.4-8.2); Triglycerides 293 mg/dL; Very Low Density Lipoprotein 59 mg/dL (5-40)
== END ==
PROVIDERS: PCP Family Medicine; Referring Provider Nurse Practitioner Family; Visit Provider Nurse Practitioner Family
DX: E78.1 Pure hyperglyceridemia (principal); R74.8 Abnormal levels of other serum enzymes
CPT/HCPCS: 36415; 80061; 80076

== ENCOUNTER → 2020-04-26 11:30 | Outpatient (CLI) | payer MEDICARE, OTHER, SELFPAY ==
[2020-01-08 09:16] VITALS: BMI 28.2
[2020-04-26 15:42] LABS: Absolute Lymphocyte Count 1.85 X10^3/uL (0.83-4.51); Absolute Neutrophil Count 3.7 X10^3/uL (2.0-7.7); Basophil# 0.04 X10^3/uL; Basophil% 0.6 % (0-1); Eosinophil# 0.09 X10^3/uL; Eosinophils% 1.5 % (0-5); Hematocrit 44.9 % (40-54); Hemoglobin 14.4 g/dL (13.0-16.5); Lymphocyte # 1.85 X10^3/ul (4.0); Lymphocyte % 29.9 % (19-41); Mean Corp Hgb Conc 32.1 g/dL (32-36); Mean Corpuscular Hgb 31.9 pg (27.0-32.0); Mean Corpuscular Volume 99.6 fL (80-94); Mean Platelet Vol. 10.9 fl (6.2-12.0); Monocyte# 0.51 X10^3/uL; Monocyte% 8.2 % (0-10); NRBC Flagged by Analyzer 0 % (0-5); Neutrophil # 3.68 X10^3/uL (2.7-7.7); Neutrophil % 59.5 % (47-70); Platelet Count 218 K/mm3 (150-450); RBC Distribution Width CV 12.9 % (11.6-14.6); RBC Distribution Width SD 47.8 fl (35.1-43.9); Red Blood Count 4.51 M/mm3 (4.6-6.2); White Blood Count 6.2 K/mm3 (4.4-11.0)
[2020-04-26 15:47] LABS: ALB/GLOB Ratio 0.9 RATIO (0.9-2.4); AST(SGOT) 72 U/L (15-37); Alanine Aminotransfer ALT/SGPT 69 U/L (16-61); Albumin, Serum 3.8 g/dL (3.2-5.0); Alkaline Phosphatase 172 U/L (45-117); Anion Gap 10 (5-15); BUN 26 mg/dL (7-18); BUN/Creat Ratio 15.2 RATIO (10-20); Calcium,Total 9.2 mg/dL (8.5-10.1); Chloride 105 mmol/L (98-107); Creatinine, Serum 1.71 mg/dL (0.70-1.30); EST Glomerular Filtration Rate 43 mL/min (>60); Est Glom Filt Rate - Afr Amer 52 mL/min (>60); Globulin 4.1 g/dL (2.2-4.2); Glucose 108 mg/dL (74-106); Protein, Total 7.9 g/dL (6.4-8.2); Sodium Level 136 mmol/L (136-145); Thyroid Stim Hormone (TSH) 2.66 uIU/mL (0.358-3.74)
== END ==
PROVIDERS: PCP Family Medicine; Referring Provider Family Medicine; Visit Provider Family Medicine
DX: E03.9 Hypothyroidism, unspecified (principal); I10 Essential (primary) hypertension
CPT/HCPCS: 36415; 80053; 84443; 85025

== ENCOUNTER → 2020-07-26 10:52 | Outpatient (CLI) | payer MEDICARE, OTHER, SELFPAY ==
[2020-01-08 09:16] VITALS: BMI 28.2
[2020-07-26 13:06] LABS: Creatinine, Urine (random) < 13.00 mg/dL (NO RANGE EST.); Microalbumin,Random Urine 46.5 mg/L (NO RANGE EST.)
[2020-07-26 13:16] LABS: PSA,Total - Annual Screen 0.94 ng/mL (0.00-4.00)
[2020-07-26 14:42] LABS: AST(SGOT) 54 U/L (15-37); Alanine Aminotransfer ALT/SGPT 67 U/L (16-61); Albumin, Serum 4.1 g/dL (3.2-5.0); Alkaline Phosphatase 194 U/L (45-117); Bilirubin, Direct 0.22 mg/dL (0.00-0.30); Cholesterol 185 mg/dL (200); Globulin 3.5 g/dL (2.2-4.2); High Density Lipoprotein 61 mg/dL; Protein, Total 7.6 g/dL (6.4-8.2); Triglycerides 332 mg/dL; Very Low Density Lipoprotein 66 mg/dL (5-40)
== END ==
PROVIDERS: Nurse Practitioner Family; PCP Family Medicine; Visit Provider Family Medicine
DX: E78.00 Pure hypercholesterolemia, unspecified (principal); E78.5 Hyperlipidemia, unspecified; I10 Essential (primary) hypertension; Z12.5 Encounter for screening for malignant neoplasm of prostate
CPT/HCPCS: 36415; 80061; 80076; 82043; 82570; 84153; G0103

== ENCOUNTER → 2020-10-28 11:57 | Outpatient (CLI) | payer MEDICARE, OTHER, SELFPAY ==
[2020-07-29 10:37] VITALS: BMI 27.7
[2020-10-28 15:28] LABS: AST(SGOT) 28 U/L (15-37); Alanine Aminotransfer ALT/SGPT 25 U/L (16-61); Alkaline Phosphatase 78 U/L (45-117); Bilirubin, Direct 0.18 mg/dL (0.00-0.30); Cholesterol 158 mg/dL (200); Globulin 3.4 g/dL (2.2-4.2); High Density Lipoprotein 55 mg/dL; Protein, Total 7.4 g/dL (6.4-8.2); Triglycerides 226 mg/dL; Very Low Density Lipoprotein 45 mg/dL (5-40)
== END ==
PROVIDERS: PCP Family Medicine; Referring Provider Family Medicine; Visit Provider Nurse Practitioner Family
DX: E78.5 Hyperlipidemia, unspecified (principal)
CPT/HCPCS: 36415; 80061; 80076

== ENCOUNTER 2021-06-13 10:18 | Outpatient (CLI) | payer MEDICARE, OTHER, SELFPAY ==
[2021-06-13 10:25] LABS: Bacteria 0 SEEN /hpf (None Seen); Mucous, Urine 0 SEEN /hpf (<or=2+)
[2021-06-13 12:17] LABS: Color, Urine Yellow (Yellow); Glucose, Dipstick Normal (Normal); Ketone-Dipstick Negative (Negative); Leukocyte Esterase-Dipstick Negative /ul (Negative); Nitrite-Dipstick Negative (Negative); Occult Blood-Urine Negative /ul (Negative); Protein-Dipstick Negative (Negative); Urine Bilirubin Dipstick Negative (Negative); Urine Clarity Clear (Clear); Urine Urobilinogen Normal (Normal); Urine pH 6.5 (5.0 - 8.0)
[2021-06-13 12:23] LABS: Absolute Lymphocyte Count 1.57 X10^3/uL (0.83-4.51); Absolute Neutrophil Count 4.8 X10^3/uL (2.0-7.7); Basophil# 0.04 X10^3/uL; Basophil% 0.6 % (0-1); Eosinophil# 0.14 X10^3/uL; Hematocrit 43.7 % (40-54); Hemoglobin 14.5 g/dL (13.0-16.5); Lymphocyte # 1.57 X10^3/ul (0.83-4.51); Lymphocyte % 22.2 % (19-41); Mean Corp Hgb Conc 33.2 g/dL (32-36); Mean Corpuscular Hgb 32.4 pg (27.0-32.0); Mean Corpuscular Volume 97.8 fL (80-94); Mean Platelet Vol. 10.4 fl (6.2-12.0); Monocyte# 0.48 X10^3/uL; Monocyte% 6.8 % (0-10); NRBC Flagged by Analyzer 0 % (0-5); Neutrophil # 4.81 X10^3/uL (2.7-7.7); Neutrophil % 68.1 % (47-70); Platelet Count 262 K/mm3 (150-450); RBC Distribution Width CV 13.4 % (11.6-14.6); RBC Distribution Width SD 49.1 fl (35.1-43.9); Red Blood Count 4.47 M/mm3 (4.6-6.2); White Blood Count 7.1 K/mm3 (4.4-11.0)
[2021-06-13 12:27] LABS: Red Blood Cells-Urine 0-5 SEEN /hpf (0-5); Squamous Epithelial Cells - UA 0-5 SEEN /hpf (0-5); White Blood Cells 0-5 SEEN /hpf (0-5)
[2021-06-13 12:33] LABS: PTHIN 40.4 pg/mL (18.4-80.1)
[2021-06-13 12:39] LABS: Vitamin D,25 Hydroxy 28.4 ng/mL
[2021-06-13 12:40] LABS: Hemoglobin A1c 5.3 % (3.8-5.6)
[2021-06-13 12:45] LABS: Protein, Urine (Random) 15.5 mg/dL (<11.9); Protein:Creat Ratio 603 mg/g CRE (0-200)
[2021-06-13 12:50] LABS: AST(SGOT) 20 U/L (15-37); Alanine Aminotransfer ALT/SGPT 21 U/L (16-61); Albumin, Serum 3.9 g/dL (3.2-5.0); Alkaline Phosphatase 75 U/L (45-117); Anion Gap 4 (5-15); BUN 24 mg/dL (7-18); BUN/Creat Ratio 16.7 RATIO (10-20); Calcium,Total 9.6 mg/dL (8.5-10.1); Chloride 107 mmol/L (98-107); Cholesterol 177 mg/dL (200); Creatinine, Serum 1.44 mg/dL (0.70-1.30); EST Glomerular Filtration Rate 52 mL/min (>60); Est Glom Filt Rate - Afr Amer 63 mL/min (>60); Globulin 3.6 g/dL (2.2-4.2); Glucose 134 mg/dL (74-106); High Density Lipoprotein 61 mg/dL; Magnesium 2.2 mg/dL (1.6-2.6); Phosphorus 2.4 mg/dL (2.5-4.9); Potassium 3.3 mmol/L (3.5-5.1); Protein, Total 7.5 g/dL (6.4-8.2); Sodium Level 140 mmol/L (136-145); T4 Free Direct 1.13 ng/dL (0.76-1.46); Thyroid Stim Hormone (TSH) 3.73 uIU/mL (0.358-3.74); Triglycerides 174 mg/dL; Very Low Density Lipoprotein 35 mg/dL (5-40)
[2021-06-15 16:32] LABS: Anti-Thyroglobulin AB < 1.0 IU/mL (0.0-0.9); Thyroglobulin, Serum Qt. 23.8 ng/mL (1.4-29.2); Thyroid Peroxidase AB < 8 IU/mL (0-34)
== END 2021-06-13 23:59 | disposition home or self-care (01) ==
LOC: MFPLAB 10:19
PROVIDERS: PCP Family Medicine; Referring Provider Family Medicine; Visit Provider Family Medicine
DX: I12.9 Hypertensive chronic kidney disease with stage 1 through stage 4 chronic kidney disease, or unspecified chronic kidney disease (principal); I48.91 Unspecified atrial fibrillation; N18.30 Chronic kidney disease, stage 3 unspecified; R73.09 Other abnormal glucose; E03.9 Hypothyroidism, unspecified; E78.00 Pure hypercholesterolemia, unspecified
CPT/HCPCS: 80048; 80061; 80076; 81001; 82306; 82570; 83036; 83735; 83970; 84100; 84156; 84432; 84439; 84443; 85025; 86376; 86800

== ENCOUNTER 2021-07-18 11:53 | Outpatient (CLI) | payer MEDICARE, OTHER, SELFPAY ==
--- NOTE | 2021-07-18 11:56 | US_ITS ---
STUDY: THYROID ULTRASOUND REASON FOR EXAM: Male, 66 years old. THYROID NODULES TECHNIQUE: Ultrasound evaluation of the thyroid was performed with real-time and static horvath-scale imaging. COMPARISON: None. FINDINGS: RIGHT LOBE: The right lobe of the thyroid gland measures 4.3 cm x 1.9 cm x 1.4 cm. There is a heterogeneous echotexture. There are no demonstrated solid, cystic or complex lesions. LEFT LOBE: The left lobe of the thyroid gland measures 3.4 cm x 1.3 cm x 1.4 cm. There is a heterogeneous echotexture. There are no demonstrated solid, cystic or complex lesions. ISTHMUS: The isthmus measures 3 mm. The regional lymph nodes are normal. Parathyroid glands aren''t visualized. US/Thyroid IMPRESSION: Heterogeneous echotexture of the thyroid lobes without any discrete nodule. Electronically Signed: Best Ahn MD at 14:56 EDT ,
== END 2021-07-18 23:59 | disposition home or self-care (01) ==
LOC: US 11:54
PROVIDERS: PCP Family Medicine; Referring Provider Family Medicine; Visit Provider Family Medicine
DX: E04.1 Nontoxic single thyroid nodule (principal)
CPT/HCPCS: 76536

== ENCOUNTER → 2021-12-12 | Outpatient (CLI) | payer MEDICARE, OTHER, SELFPAY ==
[2021-12-12 15:05] LABS: Absolute Lymphocyte Count 1.57 X10^3/uL (0.83-4.51); Basophil# 0.03 X10^3/uL; Basophil% 0.5 % (0-1); Eosinophil# 0.13 X10^3/uL; Eosinophils% 2.1 % (0-5); Hematocrit 37.8 % (40-54); Hemoglobin 12.5 g/dL (13.0-16.5); Lymphocyte # 1.57 X10^3/ul (0.83-4.51); Mean Corp Hgb Conc 33.1 g/dL (32-36); Mean Corpuscular Hgb 31.6 pg (27.0-32.0); Mean Corpuscular Volume 95.5 fL (80-94); Mean Platelet Vol. 11.2 fl (6.2-12.0); Monocyte# 0.55 X10^3/uL; Monocyte% 8.8 % (0-10); NRBC Flagged by Analyzer 0 % (0-5); Neutrophil # 3.98 X10^3/uL (2.7-7.7); Neutrophil % 63.3 % (47-70); Platelet Count 217 K/mm3 (150-450); RBC Distribution Width CV 13.6 % (11.6-14.6); RBC Distribution Width SD 47.8 fl (35.1-43.9); Red Blood Count 3.96 M/mm3 (4.6-6.2); White Blood Count 6.3 K/mm3 (4.4-11.0)
[2021-12-12 15:16] LABS: Vitamin D,25 Hydroxy 32.8 ng/mL
[2021-12-12 15:16] LABS: Protein, Urine (Random) 8.7 mg/dL (<11.9); Protein:Creat Ratio 483 mg/g CRE (0-200)
[2021-12-12 15:22] LABS: ALB/GLOB Ratio 1.2 RATIO (0.9-2.4); AST(SGOT) 26 U/L (15-37); Alanine Aminotransfer ALT/SGPT 28 U/L (16-61); Alkaline Phosphatase 109 U/L (45-117); Anion Gap 9 (5-15); BUN 21 mg/dL (7-18); BUN/Creat Ratio 15.2 RATIO (10-20); Calcium,Total 9.6 mg/dL (8.5-10.1); Chloride 107 mmol/L (98-107); Cholesterol 136 mg/dL (200); Creatinine, Serum 1.38 mg/dL (0.70-1.30); EST Glomerular Filtration Rate 54 mL/min (>60); Est Glom Filt Rate - Afr Amer 66 mL/min (>60); Globulin 3.4 g/dL (2.2-4.2); Glucose 107 mg/dL (74-106); High Density Lipoprotein 59 mg/dL; Magnesium 2.1 mg/dL (1.6-2.6); Phosphorus 2.9 mg/dL (2.5-4.9); Potassium 3.4 mmol/L (3.5-5.1); Protein, Total 7.4 g/dL (6.4-8.2); Sodium Level 142 mmol/L (136-145); T4 Free Direct 1.17 ng/dL (0.76-1.46); Thyroid Stim Hormone (TSH) 2.98 uIU/mL (0.358-3.74); Triglycerides 136 mg/dL; Very Low Density Lipoprotein 27 mg/dL (5-40)
[2021-12-13 15:49] LABS: Vitamin B12 501 pg/mL (211-911)
[2021-12-13 16:19] LABS: Ferritin 53 ng/mL (26-388); Iron 87 ug/dL (65-175); Iron Binding Capacity,Total 497 ug/dL (250-450); PERCENT IRON SATURATION 17.5 % (15.0-55.0)
[2021-12-16 17:30] LABS: Transferrin 396 mg/dL (177-329)
== END | disposition home or self-care (01) ==
LOC: MFPLAB 12:15
PROVIDERS: PCP Family Medicine; Visit Provider Family Medicine
DX: D64.9 Anemia, unspecified (principal); I48.91 Unspecified atrial fibrillation; E55.9 Vitamin D deficiency, unspecified; E03.9 Hypothyroidism, unspecified; E78.00 Pure hypercholesterolemia, unspecified
CPT/HCPCS: 36415; 80053; 80061; 82306; 82570; 82607; 82728; 83540; 83550; 83735; 84100; 84156; 84439; 84443; 84466; 85025

== ENCOUNTER → 2022-05-18 | Outpatient (CLI) | payer MEDICARE, OTHER, SELFPAY ==
[2022-05-18 12:44] LABS: Bacteria 0 SEEN /hpf (None Seen); Mucous, Urine 0 SEEN /hpf (<or=2+); Red Blood Cells-Urine 0 SEEN /hpf (0-5); Squamous Epithelial Cells - UA 0 SEEN /hpf (0-5); White Blood Cells 0 SEEN /hpf (0-5)
[2022-05-18 15:07] LABS: Absolute Lymphocyte Count 1.46 X10^3/uL (0.83-4.51); Absolute Neutrophil Count 4.5 X10^3/uL (2.0-7.7); Basophil# 0.04 X10^3/uL; Basophil% 0.6 % (0-1); Eosinophil# 0.12 X10^3/uL; Eosinophils% 1.8 % (0-5); Hematocrit 41.8 % (40-54); Lymphocyte # 1.46 X10^3/ul (0.83-4.51); Lymphocyte % 22.1 % (19-41); Mean Corp Hgb Conc 33.5 g/dL (32-36); Mean Corpuscular Hgb 32.1 pg (27.0-32.0); Mean Corpuscular Volume 95.9 fL (80-94); Mean Platelet Vol. 10.4 fl (6.2-12.0); Monocyte# 0.45 X10^3/uL; Monocyte% 6.8 % (0-10); NRBC Flagged by Analyzer 0 % (0-5); Neutrophil # 4.53 X10^3/uL (2.7-7.7); Neutrophil % 68.4 % (47-70); Platelet Count 222 K/mm3 (150-450); RBC Distribution Width CV 13.8 % (11.6-14.6); RBC Distribution Width SD 48.9 fl (35.1-43.9); Red Blood Count 4.36 M/mm3 (4.6-6.2); White Blood Count 6.6 K/mm3 (4.4-11.0)
[2022-05-18 15:14] LABS: Color, Urine Yellow (Yellow); Glucose, Dipstick Normal (Normal); Ketone-Dipstick Negative (Negative); Leukocyte Esterase-Dipstick Negative /ul (Negative); Nitrite-Dipstick Negative (Negative); Occult Blood-Urine Negative /ul (Negative); Protein-Dipstick Negative (Negative); Urine Bilirubin Dipstick Negative (Negative); Urine Clarity Clear (Clear); Urine Urobilinogen Normal (Normal)
[2022-05-18 15:36] LABS: ALB/GLOB Ratio 1.1 RATIO (0.9-2.4); AST(SGOT) 58 U/L (15-37); Alanine Aminotransfer ALT/SGPT 67 U/L (16-61); Albumin, Serum 4.3 g/dL (3.2-5.0); Alkaline Phosphatase 278 U/L (45-117); Anion Gap 11 (5-15); BUN 22 mg/dL (7-18); BUN/Creat Ratio 17.2 RATIO (10-20); Calcium,Total 10.1 mg/dL (8.5-10.1); Chloride 105 mmol/L (98-107); Cholesterol 182 mg/dL (200); Creatinine, Serum 1.28 mg/dL (0.70-1.30); EST Glomerular Filtration Rate 59 mL/min (>60); Est Glom Filt Rate - Afr Amer 72 mL/min (>60); Globulin 3.9 g/dL (2.2-4.2); Glucose 119 mg/dL (74-106); High Density Lipoprotein 72 mg/dL; Magnesium 1.9 mg/dL (1.6-2.6); Phosphorus 3.3 mg/dL (2.5-4.9); Potassium 3.5 mmol/L (3.5-5.1); Protein, Total 8.2 g/dL (6.4-8.2); Sodium Level 141 mmol/L (136-145); T4 Free Direct 1.05 ng/dL (0.76-1.46); Thyroid Stim Hormone (TSH) 2.67 uIU/mL (0.358-3.74); Triglycerides 307 mg/dL; Very Low Density Lipoprotein 61 mg/dL (5-40)
== END | disposition home or self-care (01) ==
LOC: MTLAB 12:40
PROVIDERS: PCP Family Medicine; Referring Provider Family Medicine; Visit Provider Family Medicine
DX: E03.9 Hypothyroidism, unspecified (principal); N18.30 Chronic kidney disease, stage 3 unspecified; E55.9 Vitamin D deficiency, unspecified; E78.00 Pure hypercholesterolemia, unspecified
CPT/HCPCS: 36415; 80053; 80061; 81001; 82306; 83735; 83970; 84100; 84439; 84443; 85025

== ENCOUNTER → 2022-05-22 | Outpatient (CLI) | payer MEDICARE, OTHER, SELFPAY ==
[2022-05-22 18:16] LABS: ALB/GLOB Ratio 1.5 RATIO (0.9-2.4); AST(SGOT) 45 U/L (15-37); Alanine Aminotransfer ALT/SGPT 53 U/L (16-61); Albumin, Serum 4.9 g/dL (3.2-5.0); Alkaline Phosphatase 260 U/L (45-117); Anion Gap 14 (5-15); BUN 23 mg/dL (7-18); BUN/Creat Ratio 16.9 RATIO (10-20); Chloride 104 mmol/L (98-107); Creatinine, Serum 1.36 mg/dL (0.70-1.30); EST Glomerular Filtration Rate 55 mL/min (>60); Est Glom Filt Rate - Afr Amer 67 mL/min (>60); Globulin 3.3 g/dL (2.2-4.2); Glucose 116 mg/dL (74-106); Potassium 3.8 mmol/L (3.5-5.1); Protein, Total 8.2 g/dL (6.4-8.2); Sodium Level 140 mmol/L (136-145)
[2022-05-22 18:43] LABS: Hepatitis B Surface Antibody Non-Reactive; Hepatitis B Surface Antigen Non-Reactive (Nonreactive); Hepatitis C Antibody Non-Reactive (Nonreactive)
[2022-05-23 15:14] LABS: GGTP 1901 U/L (15-85)
== END | disposition home or self-care (01) ==
LOC: MFPLAB 13:51
PROVIDERS: PCP Family Medicine; Referring Provider Family Medicine; Visit Provider Family Medicine
DX: R74.8 Abnormal levels of other serum enzymes (principal)
CPT/HCPCS: 36415; 80053; 82977; 86706; 86803; 87340

== ENCOUNTER → 2022-05-30 | Outpatient (CLI) | payer MEDICARE, OTHER, SELFPAY ==
--- NOTE | 2022-05-30 08:48 | US_ITS ---
STUDY: ABDOMINAL ULTRASOUND - RIGHT UPPER QUADRANT REASON FOR VISIT: Male, 67 years old elevated GGT TECHNIQUE: Ultrasound evaluation of the right upper quadrant was performed with real-time and static horvath-scale imaging. TECHNICAL QUALITY: Adequate. COMPARISON: None. FINDINGS: Liver: The liver is enlarged and measures 20.9 cm. There is increased echogenicity consistent with fatty infiltration. The liver has a lobular contour. Heterogeneous appearance of the hepatic parenchyma. Correlation with a CT scan is recommended for further evaluation. The bile ducts are within normal limits. There is hepatic color flow. The direction of portal flow is hepatopetal. Findings suggestive of focal fatty sparing in the periportal region. Gallbladder: Normal distended gallbladder. The gallbladder wall measures 2.1 mm. There is a negative sonographic Villarreal''s sign. There is no pericholecystic fluid. There are no gallstones. Common Bile Duct (C.B.D.): The common bile duct measures 2.2 mm. Pancreas: Normal size of the head, body and tail of the pancreas. There is increased echogenicity of the pancreas. There is no demonstrated pancreatic mass or cyst. Right Kidney: Normal size of the right kidney. The right kidney measures 10.8 cm x 6.8 cm x 5.8 cm. Normal renal cortex. The right cortex measures 1.6 cm. There is no demonstrated renal mass or cyst. There is no right hydronephrosis. US/Abdomen Limited IMPRESSION: Hepatomegaly and fatty infiltration of the liver with focal fatty sparing as described. Heterogeneous appearance within the liver parenchyma. Correlation with CT scan is recommended. Electronically Signed: Best Ahn MD at 11:00 EST ,
== END | disposition home or self-care (01) ==
LOC: US 08:46
PROVIDERS: PCP Family Medicine; Referring Provider Family Medicine; Visit Provider Family Medicine
DX: R74.8 Abnormal levels of other serum enzymes (principal)
CPT/HCPCS: 76705

== ENCOUNTER → 2022-06-07 | Outpatient (CLI) | payer MEDICARE, OTHER, SELFPAY ==
--- NOTE | 2022-06-07 14:01 | CT_ITS ---
STUDY: CT ABDOMEN WITH CONTRAST REASON FOR EXAM: Male, 67 years old. Nodular liver/cirrhosis RADIATION DOSAGE (If Supplied By Facility): CTDIvol = ( 16.57 ) mGy, DLP = ( 490.86 ) mGycm TECHNIQUE: Transaxial images were obtained post I.V. administration of IV 100mL [id number]-[id number], and without oral contrast. Sagittal and coronal images were reconstructed. Individualized dose optimization techniques were used for this CT. COMPARISON: Comparison made with prior ultrasound of the right upper quadrant dated May 30, 2022. FINDINGS: The visualized lung bases are unremarkable. Coronary artery calcification. There is hepatomegaly with diffuse hepatic enlargement. Hepatomegaly. Normal gallbladder and extrahepatic biliary system. Normal spleen. Normal pancreas. Normal bilateral adrenal glands. 4 mm nonobstructive calculus in the midpole calyx of the right kidney. 1.6 cm cyst in the anterior lower pole of the left kidney. Normal visualized stomach. Normal small intestine. Normal colon. The appendix is visualized and appears normal. There is diffuse atherosclerotic calcification of the abdominal aorta and its major visceral branches, without a demonstrated aneurysm. Normal inferior vena cava. Normal retroperitoneum. There is a small umbilical hernia containing fat. There are diffuse degenerative changes of the visualized lumbar spine. CT/Abdomen WITH IV Contrast IMPRESSION: Hepatomegaly. Diffuse fatty infiltration of the liver. Nonobstructive right intrarenal calculus. Left renal cyst. Electronically Signed: Best Ahn MD at 15:33 EST ,
== END | disposition home or self-care (01) ==
LOC: CT 14:00
PROVIDERS: PCP Family Medicine; Referring Provider Family Medicine; Visit Provider Family Medicine
DX: K74.60 Unspecified cirrhosis of liver (principal)
CPT/HCPCS: 74160; Q9967

== ENCOUNTER 2022-06-14 17:31 | Emergency (ER) | payer MEDICARE, OTHER, SELFPAY ==
[2022-06-14 17:33] VITALS: BP 170/71; PULSE 108; RESP 16; TEMP 36.9; O2SAT 99
--- NOTE | 2022-06-14 17:42 | EX.ED.DYSGE1 ---
HPI History of Present Illness Chief Complaint: Cellulitis Informant: patient and spouse/S.O. Onset/Context/Timing Onset: Days (4) Context: Gradual Onset Timing: Continuous Quality: Sore, red, swollen Location: LLE, started distally and has ascended Current Severity: Moderate Maximum Severity: Moderate Worsened by: Moving left lower extremity, walking Relieved by: Rest Associated Symptoms Associated Symptoms: Head cold and malaise, no fevers or chills Narrative Narrative: Started getting hot redness and swelling in his left distal lower extremity/ankle 4 days ago it has progressed and this is the first time he has had looked at, now that it is up into his left thigh according to him and his . He states the day before the onset he knows that his leg looked normal and that none of the redness or rash was there. The morning of him noticing it, he remembers feeling cold so he turned the heating pad on/up that he laid on then most of the morning and noticed the redness later. For the last week he has had a head cold and he has been feeling malaised since then. Usually walks without assistance, but he currently is in a wheelchair since coming to the entrance to the ER and complaining of trouble walking due to the pain in his left lower extremity. He denies any fevers chills. Denies any injury or obvious etiology for this and no history of cellulitis in his legs before, nor DVT/PE. He is anticoagulated on Eliquis because of atrial fibrillation. He denies any recent bleeding. He denies any recent travel, hospitalization, surgery, immobilization for other reasons in the last couple months. [facility] Medical History (Updated 06/14/22 @ 21:[address] Quincy Alaniz MD) Anaphylactic reaction Atrial fibrillation with RVR Essential hypertension Fatty liver HLD (hyperlipidemia) Hypothyroidism Longstanding persistent atrial fibrillation Obstructive sleep apnea Secondary pulmonary arterial hypertension TIA (transient ischemic attack) Tobacco dependence in remission Home Medications apixaban 5 mg tablet 5 mg PO BID blood thinner 09/19/16 [History Last Taken 09/20/18 10:00] aspirin 81 mg chewable tablet 81 mg PO DAILY heart health 09/19/16 [History Last Taken 09/20/18 08:00] omeprazole 20 mg capsule,delayed release 20 mg PO DAILY acid reflux 09/19/16 [History Last Taken 09/20/18 08:00] carvedilol 25 mg tablet 25 mg PO BID #60 tabs 09/22/18 [Rx Last Taken Unknown] triamterene 37.5 mg-hydrochlorothiazide 25 mg tablet 1 tab PO DAILY blood pressure 11/04/18 [History Last Taken Unknown] levothyroxine 50 mcg tablet 75 mcg PO DAILY thyroid 01/08/20 [History Last Taken Unknown] doxazosin 4 mg tablet 4 mg PO DAILY #90 tabs 09/15/21 [Rx Last Taken Unknown] rosuvastatin 10 mg tablet 10 mg PO DAILY #90 tabs 09/20/21 [Rx Last Taken Unknown] cholecalciferol (vitamin D3) 50 mcg (2,000 unit) capsule 50 mcg PO DAILY 11/10/21 [History Last Taken Unknown] diltiazem HCl 300 mg capsule,24 hr,extended release (Tiadylt ER) 300 mg PO DAILY 03/22/22 [History Last Taken Unknown] cephalexin 500 mg capsule 500 mg PO Q6 #40 CAPSULES 06/14/22 [Rx Last Taken Unknown] hydrocodone-acetaminophen 5-325mg 5mg-325mg 1 tab PO Q6H PRN PRN Pain 3 days #10 TABLETS 06/14/22 [Rx Last Taken Unknown] Allergy/AdvReac Type Severity Reaction Status Date / Time quinapril Allergy Severe angioedema, Verified 06/14/22 18:11 anaphylaxis TAMI Inhibitors Allergy Angioedema Verified 06/14/22 18:11 ARB-Angiotensin Receptor Allergy Angioedema Verified 06/14/22 18:11 Antagonist banana Allergy Unknown Verified 06/14/22 18:11 metoprolol [From Toprol XL] AdvReac Nausea Verified 06/14/22 18:11 Family History Mother Hypertension Surgical History History of cardioversion (11/14/16) History of left heart catheterization (10/19/16) History of tonsillectomy Patent ductus arteriosus Social History Smoking Status: Former smoker second hand exposure: Yes alcohol intake: current alcohol intake frequency: holidays/special occasions only Alcohol type: beer substance use type: does not use caffeine: Yes Type: coffee eating out: rarely or never during the past year weight has: remained stable what type of physical activity do you participate in: none seatbelt use: always do you feel safe at home: Yes ROS ROS ED Constitutional Constitutional ED: Reports fatigue and malaise; Denies chills or fever(s) Eyes Eyes: Denies blurry vision or diplopia ENT ENT ED: Reports nasal congestion and rhinorrhea; Denies ear pain, headache(s), sinus pain, sinus pressure or sore throat Cardiovascular Cardiovascular: Denies chest pain Respiratory/Chest Respiratory/Chest: Reports cough; Denies dyspnea Gastrointestinal Gastrointestinal: Denies abdominal pain, constipation, diarrhea, melena, nausea or vomiting Genitourinary Genitourinary ED: Denies dysuria or hematuria Musculoskeletal Musculoskeletal: Reports extremity pain; Denies back pain or neck pain Integumentary Reports rash; Denies abscess, Abrasions or wounds Neurologic Neurologic: Denies paresthesias or weakness EXAM Physical Exam Const Vital Signs: 06/14/22 17:33 06/14/22 18:09 06/14/22 18:09 Temperature 98.5 F 98.1 F Temperature Source Oral Oral Pulse Rate 108 H 115 H 115 H Respiratory Rate 16 18 18 Blood Pressure 170/71 H 142/80 H 142/80 H Blood Pressure Mean 104 100 100 Pulse Ox 99 98 98 Oxygen Delivery Method Room Air Room Air Room Air 06/14/22 19:41 06/14/22 20:48 Temperature 99.2 F H 99.0 F Temperature Source Oral Temporal Pulse Rate 89 91 Respiratory Rate 18 18 Blood Pressure 167/97 H 126/74 H Blood Pressure Mean 120 91 Pulse Ox 96 98 Oxygen Delivery Method Room Air Room Air Positive well nourished and well developed General Appearance ED: well developed and NAD HEENT Reports moist mucous membranes HEENT Narrative: POP normal. No sinus tenderness. No purulent nasal discharge. Eyes PERRL and EOMs intact bilaterally Neck full ROM, no lymphadenopathy and supple Resp normal respiratory effort and clear to auscultation bilaterally Effort and Inspection: able to speak in complete sentences Cardio regular rate, regular rhythm, S1 normal heart sound, S2 normal heart sound and no murmurs Rate: Negative for tachycardic GI normal to inspection, nondistended, normoactive bowel sounds Back/Spine normal ROM and normal to inspection Extremity Extremity Narrative: Dense erythema with edema in the left lower leg from the ankle to the proximal nguyen but not including the knee, none of the tender. Difficult to palpate a dorsalis pedis pulse because of some edema there, but prescribe refill all toes. Strong popliteal pulse palpable. Painful range of the ankle, but he is able, painless ranging of the hip and knee. There is blanching erythema that looks different in the groin and medial proximal half of the thigh, it is also nontender and there is no palpable inguinal lymphadenopathy. Right lower extremity has some edema but no erythema. Neuro oriented x3, no focal motor deficits and no sensory deficits noted Sensorium / Orientation: alert Psych mental status grossly normal and thought process normal Skin no wounds Skin Narrative: Warm, non-blanching, hyperemic left lower extremity, all nontender. No subcutaneous emphysema. No abscess palpable. MDM MDM MDM Narrative Medical decision making narrative: Clinically, this patient does not have any tenderness in any of the erythematous areas. There are 2 distinctly different appearing areas. One is on the entire left lower leg which almost is purpuric and nonblanching, the other blanches and almost looks like lymphangitis in the medial thigh without lymphadenopathy, but it is also nontender. The only place he really has pain is in the ankle when he moves it, he is performing short arc range of motion without any significant difficulty or limitation, and he states that the pain gradually occurred as the swelling occurred throughout the week, and he states that it feels like it hurts because it is swollen they are the most, and the other joints are not affected by swelling at this time so they do not hurt. Work-up is nonspecific. He does have chronic kidney disease, it is a little worse so I held off on performing CT angiography of the left lower extremity. We were able to Doppler pulses without any difficulty, and I obtained a duplex ultrasound of the left lower extremity venous system showing no evidence of DVT or SVT. My suspicion is that since he is anticoagulated, applying heat to the leg created spontaneous bleeding and bruising which is what is causing the redness of the left lower leg and pain. However, the area in his thigh has an appearance more like that of cellulitis although it is not tender, I feel it would be in his best interest to treat him empirically for infection. He was given a dose of IV Zosyn here as well as cephalexin which I will prescribe him in addition to some [place]. I offered admission, we considered and he declined and feels okay to go home. I advised following up closely as an outpatient with his doctor after the weekend, as he tested positive for COVID here to which is probably why he is feeling poorly and having a cough. He confirms he has been symptomatic for 1 week, so no antiviral medications are indicated right now nor are any other medications for COVID since he is not hypoxic and doing well otherwise. I did a chest x-ray, 1 view on my interpretation negative for any acute, and the left ankle 3 views of my interpretation negative for any acute. Radiology in agreement on both of these. I outlined the densely erythematous more purpuric region on the lower leg with a skin marking pen to have them follow it, if it continues to spread proximally I recommend returning to the ED. Lab Data Attestation: I reviewed the patient's lab results. Labs: Laboratory Results - last 24 hr 06/14/22 06/14/22 17:55 17:55 WBC 10.1 RBC 3.90 L Hgb 12.4 L Hct 37.7 L MCV 96.7 H MCH 31.8 MCHC 32.9 RDW Std Deviation 50.9 H RDW Coeff of [place] 14.3 Plt Count 192 MPV 9.5 Immature Gran % (Auto) 0.400 Neut % (Auto) 82.0 H Lymph % (Auto) 10.1 L [place] % (Auto) 6.8 Eos % (Auto) 0.3 Baso % (Auto) 0.4 Absolute Neuts (auto) 8.3 H Absolute Lymphs (auto) 1.02 Nucleated RBC % 0 Differential Comment SCANNED Sodium 138 Potassium 3.6 Chloride 104 Carbon Dioxide 22.0 Anion Gap 12 BUN 40 H Creatinine 2.07 H Estim Creat Clear Calc 29.30 Est GFR (MDRD) Af Amer 41 L Est GFR (MDRD) Non-Af 34 L BUN/Creatinine Ratio 19.3 Glucose 118 H Calcium 9.6 Radiography Diagnostic Testing: Clinical Impression(s) from Imaging Studies Venous Duplex 06/14/22 17:51 IMPRESSION: No sonographic evidence of deep venous thrombosis. Electronically Signed: Bharat Burch DO at 19:44 EST , Chest X-Ray 06/14/22 19:38 IMPRESSION: Degenerative changes, as described above. No demonstrated acute cardiopulmonary process. Electronically Signed: Steve Antonio DO at 20:02 EST Reading Location ID and State: [facility] / [place] Tel [phone], Service support , Ankle X-Ray 06/14/22 19:45 IMPRESSION: No fracture or dislocation. Electronically Signed: Steve Antonio DO at 20:03 EST Reading Location ID and State: [facility] / [place] Tel [phone], Service support , Discharge Plan Triage Chief Complaint: Cellulitis ED Provider: Quinyc Alaniz Dx/Rx/DC Orders Clinical Impression: Cellulitis of left lower extremity without foot, Anticoagulated, COVID-19 Instructions: Coronavirus Disease 2019 (COVID-19): Caring for Yourself or Others, Cellulitis Dc Prescriptions: New hydrocodone-acetaminophen [hydrocodone-acetaminophen] 5-325 mg tablet 1 tab PO Q6H PRN PRN (Reason: Pain) 3 Days Qty: 10 0RF cephalexin [cephalexin] 500 mg capsule 500 mg PO Q6 Qty: 40 0RF No Action doxazosin 4 mg tablet 4 mg PO DAILY Qty: 90 3RF cholecalciferol (vitamin D3) 50 mcg (2,000 unit) capsule 50 mcg PO DAILY diltiazem HCl [Tiadylt ER] 300 mg capsule,extended release 24 hr 300 mg PO DAILY omeprazole 20 MG capsule 20 mg PO DAILY aspirin 81 MG tablet,chewable 81 mg PO DAILY apixaban 5 MG tablet 5 mg PO BID levothyroxine 50 mcg tablet 75 mcg PO DAILY carvedilol 25 MG tablet 25 mg PO BID Qty: 60 0RF triamterene-hydrochlorothiazid 37.5-25 mg tablet 1 tab PO DAILY rosuvastatin 10 mg tablet 10 mg PO DAILY Qty: 90 3RF Label Comments: TAKE 1 TABLET BY MOUTH EVERY DAY Primary Care Provider: Russ Nicholas Referrals: Russ Nicholas MD [Primary Care Provider] - 3-5 Days (Or if worsening/spreading up the leg, return to ER) Disposition Disposition: Home, Self Care Discharge Date/Time: 06/14/22 21:38
--- NOTE | 2022-06-14 17:51 | US_ITS ---
INDICATION: LT ANKLE REDNESS AND SWELLING - MOVES UP THE LEG... CELLULITIS PT ON BLOOD THINNER EXAMINATION: Ultrasound US Venous Duplex LE Unilat / Limited TECHNIQUE: Brock scale, pulse wave, and color flow Doppler imaging was performed of the lower extremity venous system. The left greater saphenous, common femoral, femoral, and popliteal veins were interrogated. COMPARISON: None. FINDINGS: There is normal compression, augmentation, and signal throughout the visualized deep lower extremity veins. No mass or fluid collection. US/Venous Duplex Imag/Limited/Uni IMPRESSION: No sonographic evidence of deep venous thrombosis. Electronically Signed: Bharat Burch DO at 19:44 EST ,
[2022-06-14 18:04] LABS: Absolute Lymphocyte Count 1.02 X10^3/uL (0.83-4.51); Absolute Neutrophil Count 8.3 X10^3/uL (2.0-7.7); Basophil# 0.04 X10^3/uL; Basophil% 0.4 % (0-1); Eosinophil# 0.03 X10^3/uL; Eosinophils% 0.3 % (0-5); Hematocrit 37.7 % (40-54); Hemoglobin 12.4 g/dL (13.0-16.5); Lymphocyte # 1.02 X10^3/ul (0.83-4.51); Lymphocyte % 10.1 % (19-41); Mean Corp Hgb Conc 32.9 g/dL (32-36); Mean Corpuscular Hgb 31.8 pg (27.0-32.0); Mean Corpuscular Volume 96.7 fL (80-94); Mean Platelet Vol. 9.5 fl (6.2-12.0); Monocyte# 0.69 X10^3/uL; Monocyte% 6.8 % (0-10); NRBC Flagged by Analyzer 0 % (0-5); Neutrophil # 8.27 X10^3/uL (2.7-7.7); POSITIVE MORPHOLOGY YES; Platelet Count 192 K/mm3 (150-450); RBC Distribution Width CV 14.3 % (11.6-14.6); RBC Distribution Width SD 50.9 fl (35.1-43.9); White Blood Count 10.1 K/mm3 (4.4-11.0)
[2022-06-14 18:08] VITALS: BMI 29.1
[2022-06-14 18:09] VITALS: BP 142/80; PULSE 115; RESP 18; TEMP 36.7; O2SAT 98
[2022-06-14 18:21] LABS: Differential Indicated SCAN CRITERIA MET
[2022-06-14 18:44] LABS: Differential Comment SCANNED
[2022-06-14 18:53] LABS: Anion Gap 12 (5-15); BUN 40 mg/dL (7-18); BUN/Creat Ratio 19.3 RATIO (10-20); Calcium,Total 9.6 mg/dL (8.5-10.1); Chloride 104 mmol/L (98-107); Creatinine, Serum 2.07 mg/dL (0.70-1.30); EST Glomerular Filtration Rate 34 mL/min (>60); Est Glom Filt Rate - Afr Amer 41 mL/min (>60); Glucose 118 mg/dL (74-106); Potassium 3.6 mmol/L (3.5-5.1); Sodium Level 138 mmol/L (136-145)
--- NOTE | 2022-06-14 19:38 | RAD_ITS ---
STUDY: X-RAY CHEST REASON FOR EXAM: Male, 67 years old. Cough. Weakness. TECHNIQUE: Single AP portable view of the chest. COMPARISON: October 15, 2016. FINDINGS: The lungs are clear and expanded. There is no demonstrated pleural abnormality. Normal size heart. Normal mediastinum and poncho. Normal visualized pulmonary arteries. There is atherosclerotic calcification of the aortic arch with tortuosity. There are diffuse degenerative changes of the visualized thoracic spine. There is degenerative osteoarthritis of the bilateral shoulders. There is no demonstrated abnormality of the visualized soft tissue structures of the upper abdomen. RAD/Chest 1 View (Portable) IMPRESSION: Degenerative changes, as described above. No demonstrated acute cardiopulmonary process. Electronically Signed: Steve Antonio DO at 20:02 EST ,
[2022-06-14 19:41] VITALS: BP 167/97; PULSE 89; RESP 18; TEMP 37.3; O2SAT 96
--- NOTE | 2022-06-14 19:45 | RAD_ITS ---
STUDY: X-RAY - LEFT ANKLE REASON FOR EXAM: Male, 67 years old. pain TECHNIQUE: 3 view(s) of the ankle. COMPARISON: None. FINDINGS: Normal visualized distal tibia and fibula. Normal medial and lateral malleoli. Normal tibiotalar articulation and ankle mortise. Normal visualized talus and calcaneus. The visualized subtalar, talonavicular, calcaneocuboid and tarsal articulations are normal. Generalized soft tissue prominence. RAD/Ankle min 3 Views IMPRESSION: No fracture or dislocation. Electronically Signed: Steve Antonio DO at 20:03 EST ,
[2022-06-14] MEDS: HYDROcodone Bitartrate/Apap 5/325 Tablet PO (20:45)
[2022-06-14 20:48] VITALS: BP 126/74; PULSE 91; RESP 18; TEMP 37.2; O2SAT 98
--- NOTE | 2022-06-15 08:24 | ED.RN ---
PT CALLS IN TO ED REPORTING THAT THE PATIENT PRESCRIPTION FOR [place]CO WAS SUBMITTED TO [facility] IN [place] AND THAT THE PHARMACY IS OUT OF THE MEDICATION AND REQUESTS PRESCRIPTION BE RESUBMITTED TO [facility]. DR. SHER INFORMED AND REVIEWS CASE. ISSUE RESOLVED PER DR. SHER.
== END 2022-06-14 21:38 | disposition home or self-care (01) ==
PROVIDERS: Emergency Provider Emergency Medicine; PCP Family Medicine; Visit Provider Emergency Medicine
DX: L03.116 Cellulitis of left lower limb (principal); I27.21 Secondary pulmonary arterial hypertension; I48.11 Longstanding persistent atrial fibrillation; U07.1 COVID-19; I12.9 Hypertensive chronic kidney disease with stage 1 through stage 4 chronic kidney disease, or unspecified chronic kidney disease; N18.2 Chronic kidney disease, stage 2 (mild); E78.5 Hyperlipidemia, unspecified; K76.0 Fatty (change of) liver, not elsewhere classified; E03.9 Hypothyroidism, unspecified; G47.33 Obstructive sleep apnea (adult) (pediatric); Z86.73 Personal history of transient ischemic attack (TIA), and cerebral infarction without residual deficits; Z79.899 Other long term (current) drug therapy; Z79.82 Long term (current) use of aspirin; Z79.02 Long term (current) use of antithrombotics/antiplatelets; Z87.891 Personal history of nicotine dependence
CPT/HCPCS: 71045; 73610; 80048; 85025; 87428; 93971; 96365; 99283; 99284; A4216

== ENCOUNTER → 2022-09-14 | Outpatient (CLI) | payer MEDICARE, OTHER, SELFPAY ==
[2022-09-14 12:30] LABS: Absolute Lymphocyte Count 1.69 X10^3/uL (0.83-4.51); Absolute Neutrophil Count 4.1 X10^3/uL (2.0-7.7); Basophil# 0.04 X10^3/uL; Basophil% 0.6 % (0-1); Eosinophil# 0.17 X10^3/uL; Eosinophils% 2.6 % (0-5); Hematocrit 38.7 % (40-54); Hemoglobin 12.5 g/dL (13.0-16.5); Lymphocyte # 1.69 X10^3/ul (0.83-4.51); Lymphocyte % 25.8 % (19-41); Mean Corp Hgb Conc 32.3 g/dL (32-36); Mean Corpuscular Hgb 30.6 pg (27.0-32.0); Mean Corpuscular Volume 94.9 fL (80-94); Mean Platelet Vol. 10.1 fl (6.2-12.0); Monocyte# 0.55 X10^3/uL; Monocyte% 8.4 % (0-10); NRBC Flagged by Analyzer 0 % (0-5); Neutrophil # 4.09 X10^3/uL (2.7-7.7); Neutrophil % 62.4 % (47-70); Platelet Count 190 K/mm3 (150-450); RBC Distribution Width CV 14.7 % (11.6-14.6); RBC Distribution Width SD 51.5 fl (35.1-43.9); Red Blood Count 4.08 M/mm3 (4.6-6.2); White Blood Count 6.6 K/mm3 (4.4-11.0)
[2022-09-14 13:18] LABS: PTHIN 24.2 pg/mL (18.4-80.1)
[2022-09-14 13:22] LABS: AST(SGOT) 35 U/L (15-37); Alanine Aminotransfer ALT/SGPT 36 U/L (16-61); Albumin, Serum 3.9 g/dL (3.2-5.0); Alkaline Phosphatase 171 U/L (45-117); Anion Gap 8 (5-15); BUN 23 mg/dL (7-18); BUN/Creat Ratio 18.5 RATIO (10-20); Calcium,Total 9.6 mg/dL (8.5-10.1); Chloride 110 mmol/L (98-107); Cholesterol 144 mg/dL (200); Creatinine, Serum 1.24 mg/dL (0.70-1.30); EST Glomerular Filtration Rate 61 mL/min (>60); Est Glom Filt Rate - Afr Amer 74 mL/min (>60); Glucose 122 mg/dL (74-106); High Density Lipoprotein 68 mg/dL; Magnesium 2.1 mg/dL (1.6-2.6); Phosphorus 3.6 mg/dL (2.5-4.9); Potassium 3.4 mmol/L (3.5-5.1); Protein, Total 7.9 g/dL (6.4-8.2); Sodium Level 143 mmol/L (136-145); T4 Free Direct 1.09 ng/dL (0.76-1.46); Thyroid Stim Hormone (TSH) 3.91 uIU/mL (0.358-3.74); Triglycerides 85 mg/dL; Very Low Density Lipoprotein 17 mg/dL (5-40)
[2022-09-14 13:25] LABS: Vitamin D,25 Hydroxy 49.6 ng/mL
[2022-09-14 15:35] LABS: Bacteria 0 SEEN /hpf (None Seen); Mucous, Urine 0 SEEN /hpf (<or=2+); Red Blood Cells-Urine 0 SEEN /hpf (0-5); Squamous Epithelial Cells - UA 0 SEEN /hpf (0-5); White Blood Cells 0 SEEN /hpf (0-5)
[2022-09-14 15:51] LABS: Color, Urine Yellow (Yellow); Glucose, Dipstick Normal (Normal); Ketone-Dipstick Negative (Negative); Leukocyte Esterase-Dipstick Negative /ul (Negative); Nitrite-Dipstick Negative (Negative); Occult Blood-Urine Negative /ul (Negative); Protein-Dipstick Negative (Negative); Specific Gravity, Urine 1.015 (1.002-1.030); Urine Bilirubin Dipstick Negative (Negative); Urine Clarity Clear (Clear); Urine Urobilinogen Normal (Normal)
[2022-09-14 16:06] LABS: Protein, Urine (Random) 20.5 mg/dL (<11.9); Protein:Creat Ratio 476 mg/g CRE (0-200)
== END | disposition home or self-care (01) ==
LOC: MFPLAB 11:33
PROVIDERS: PCP Family Medicine; Visit Provider Family Medicine
DX: I12.9 Hypertensive chronic kidney disease with stage 1 through stage 4 chronic kidney disease, or unspecified chronic kidney disease (principal); N18.30 Chronic kidney disease, stage 3 unspecified; E55.9 Vitamin D deficiency, unspecified; E03.9 Hypothyroidism, unspecified
CPT/HCPCS: 36415; 80053; 80061; 81001; 82306; 82570; 83735; 83970; 84100; 84156; 84439; 84443; 85025

== ENCOUNTER → 2022-12-19 | Outpatient (CLI) | payer MEDICARE, OTHER, SELFPAY ==
[2022-12-19 11:24] LABS: Bacteria 0 SEEN /hpf (None Seen); Mucous, Urine 0 SEEN /hpf (<or=2+); Red Blood Cells-Urine 0 SEEN /hpf (0-5); Squamous Epithelial Cells - UA 0 SEEN /hpf (0-5); White Blood Cells 0 SEEN /hpf (0-5)
[2022-12-19 12:30] LABS: Absolute Lymphocyte Count 1.56 X10^3/uL (0.83-4.51); Absolute Neutrophil Count 4.1 X10^3/uL (2.0-7.7); Basophil# 0.05 X10^3/uL; Basophil% 0.8 % (0-1); Eosinophil# 0.15 X10^3/uL; Eosinophils% 2.4 % (0-5); Hematocrit 40.8 % (40-54); Hemoglobin 13.3 g/dL (13.0-16.5); Lymphocyte # 1.56 X10^3/ul (0.83-4.51); Lymphocyte % 24.7 % (19-41); Mean Corp Hgb Conc 32.6 g/dL (32-36); Mean Corpuscular Hgb 31.8 pg (27.0-32.0); Mean Corpuscular Volume 97.6 fL (80-94); Mean Platelet Vol. 10.3 fl (6.2-12.0); Monocyte# 0.49 X10^3/uL; Monocyte% 7.8 % (0-10); NRBC Flagged by Analyzer 0 % (0-5); Neutrophil # 4.05 X10^3/uL (2.7-7.7); Platelet Count 231 K/mm3 (150-450); RBC Distribution Width CV 16.9 % (11.6-14.6); RBC Distribution Width SD 60.7 fl (35.1-43.9); Red Blood Count 4.18 M/mm3 (4.6-6.2); White Blood Count 6.3 K/mm3 (4.4-11.0)
[2022-12-19 13:00] LABS: ALB/GLOB Ratio 1.1 RATIO (0.9-2.4); AST(SGOT) 37 U/L (15-37); Alanine Aminotransfer ALT/SGPT 43 U/L (16-61); Alkaline Phosphatase 217 U/L (45-117); Anion Gap 6 (5-15); BUN 18 mg/dL (7-18); BUN/Creat Ratio 13.6 RATIO (10-20); Calcium,Total 9.5 mg/dL (8.5-10.1); Chloride 108 mmol/L (98-107); Cholesterol 155 mg/dL (200); Creatinine, Serum 1.32 mg/dL (0.70-1.30); EST Glomerular Filtration Rate 57 mL/min (>60); Est Glom Filt Rate - Afr Amer 69 mL/min (>60); Globulin 3.7 g/dL (2.2-4.2); Glucose 115 mg/dL (74-106); High Density Lipoprotein 62 mg/dL; Magnesium 2.3 mg/dL (1.6-2.6); Phosphorus 3.4 mg/dL (2.5-4.9); Potassium 3.5 mmol/L (3.5-5.1); Protein, Total 7.7 g/dL (6.4-8.2); Sodium Level 141 mmol/L (136-145); T4 Free Direct 1.15 ng/dL (0.76-1.46); Thyroid Stim Hormone (TSH) 2.15 uIU/mL (0.358-3.74); Triglycerides 236 mg/dL; Very Low Density Lipoprotein 47 mg/dL (5-40); Vitamin D,25 Hydroxy 43.8 ng/mL
[2022-12-19 13:07] LABS: Protein, Urine (Random) 17.3 mg/dL (<11.9); Protein:Creat Ratio 377 mg/g CRE (0-200)
[2022-12-19 13:08] LABS: Color, Urine Yellow (Yellow); Glucose, Dipstick 1000 mg/dl (Normal); Ketone-Dipstick Negative (Negative); Leukocyte Esterase-Dipstick Negative /ul (Negative); Nitrite-Dipstick Negative (Negative); Occult Blood-Urine 10 /ul (Negative); Protein-Dipstick Negative (Negative); Urine Bilirubin Dipstick Negative (Negative); Urine Clarity Clear (Clear); Urine Urobilinogen Normal (Normal)
== END | disposition home or self-care (01) ==
LOC: MFPLAB 11:15
PROVIDERS: PCP Family Medicine; Visit Provider Family Medicine
DX: E78.00 Pure hypercholesterolemia, unspecified (principal); N18.30 Chronic kidney disease, stage 3 unspecified; E03.9 Hypothyroidism, unspecified
CPT/HCPCS: 36415; 80053; 80061; 81001; 82306; 82570; 83735; 84100; 84156; 84439; 84443; 85025

== ENCOUNTER → 2023-05-20 | Outpatient (CLI) | payer MEDICARE, OTHER, SELFPAY ==
[2023-05-20 11:26] LABS: Bacteria 0 SEEN /hpf (None Seen); Mucous, Urine 0 SEEN /hpf (<or=2+); Red Blood Cells-Urine 0 SEEN /hpf (0-5); Squamous Epithelial Cells - UA 0 SEEN /hpf (0-5); White Blood Cells 0 SEEN /hpf (0-5)
[2023-05-20 15:38] LABS: Absolute Lymphocyte Count 1.84 X10^3/uL (0.83-4.51); Basophil# 0.04 X10^3/uL; Basophil% 0.6 % (0-1); Eosinophil# 0.11 X10^3/uL; Eosinophils% 1.7 % (0-5); Hematocrit 41.3 % (40-54); Hemoglobin 13.5 g/dL (13.0-16.5); Lymphocyte # 1.84 X10^3/ul (0.83-4.51); Mean Corp Hgb Conc 32.7 g/dL (32-36); Mean Corpuscular Hgb 32.8 pg (27.0-32.0); Mean Corpuscular Volume 100.5 fL (80-94); Mean Platelet Vol. 10.4 fl (6.2-12.0); Monocyte# 0.52 X10^3/uL; Monocyte% 7.9 % (0-10); NRBC Flagged by Analyzer 0 % (0-5); Neutrophil # 4.03 X10^3/uL (2.7-7.7); Neutrophil % 61.5 % (47-70); Platelet Count 195 K/mm3 (150-450); RBC Distribution Width CV 13.3 % (11.6-14.6); RBC Distribution Width SD 49.4 fl (35.1-43.9); Red Blood Count 4.11 M/mm3 (4.6-6.2); White Blood Count 6.6 K/mm3 (4.4-11.0)
[2023-05-20 15:40] LABS: Color, Urine Yellow (Yellow); Glucose, Dipstick 250 mg/dl (Normal); Ketone-Dipstick Negative (Negative); Leukocyte Esterase-Dipstick Negative /ul (Negative); Nitrite-Dipstick Negative (Negative); Occult Blood-Urine Negative /ul (Negative); Protein-Dipstick 15 mg/dl (Negative); Urine Bilirubin Dipstick Negative (Negative); Urine Clarity Clear (Clear); Urine Urobilinogen Normal (Normal)
[2023-05-20 15:44] LABS: Protein, Urine (Random) 17.6 mg/dL (<11.9); Protein:Creat Ratio 324 mg/g CRE (0-200)
[2023-05-20 15:51] LABS: Vitamin D,25 Hydroxy 52.1 ng/mL
[2023-05-20 16:14] LABS: ALB/GLOB Ratio 1.3 RATIO (0.9-2.4); AST(SGOT) 78 U/L (15-37); Alanine Aminotransfer ALT/SGPT 72 U/L (16-61); Albumin, Serum 4.1 g/dL (3.2-5.0); Alkaline Phosphatase 211 U/L (45-117); Anion Gap 8 (5-15); BUN 26 mg/dL (7-18); BUN/Creat Ratio 16.1 RATIO (10-20); Calcium,Total 9.2 mg/dL (8.5-10.1); Chloride 109 mmol/L (98-107); Cholesterol 147 mg/dL (200); Creatinine, Serum 1.61 mg/dL (0.70-1.30); EST Glomerular Filtration Rate 45 mL/min (>60); Est Glom Filt Rate - Afr Amer 55 mL/min (>60); Globulin 3.2 g/dL (2.2-4.2); Glucose 113 mg/dL (74-106); High Density Lipoprotein 64 mg/dL; Magnesium 2.3 mg/dL (1.6-2.6); Phosphorus 3.3 mg/dL (2.5-4.9); Potassium 4.1 mmol/L (3.5-5.1); Protein, Total 7.3 g/dL (6.4-8.2); Sodium Level 142 mmol/L (136-145); T4 Free Direct 1.18 ng/dL (0.76-1.46); Thyroid Stim Hormone (TSH) 2.43 uIU/mL (0.358-3.74); Triglycerides 145 mg/dL; Very Low Density Lipoprotein 29 mg/dL (5-40)
== END | disposition home or self-care (01) ==
LOC: MFPLAB 11:24
PROVIDERS: PCP Family Medicine; Visit Provider Family Medicine
DX: D64.9 Anemia, unspecified (principal); I48.91 Unspecified atrial fibrillation; N18.30 Chronic kidney disease, stage 3 unspecified; E55.9 Vitamin D deficiency, unspecified; E03.9 Hypothyroidism, unspecified; E78.00 Pure hypercholesterolemia, unspecified
CPT/HCPCS: 36415; 80053; 80061; 81001; 82306; 82570; 83735; 84100; 84156; 84439; 84443; 85025

== ENCOUNTER → 2023-08-19 | Outpatient (CLI) | payer MEDICARE, OTHER, SELFPAY | END | disposition home or self-care (01) | LOC: SL 13:25 | PROVIDERS: PCP Family Medicine; Referring Provider Nurse Practitioner Acute Care; Visit Provider Nurse Practitioner Acute Care | DX: Z00.00 Encounter for general adult medical examination without abnormal findings (principal) ==

== ENCOUNTER → 2023-09-19 | Outpatient (CLI) | payer MEDICARE, OTHER, SELFPAY ==
[2023-09-19 12:09] LABS: Absolute Lymphocyte Count 1.65 X10^3/uL (0.83-4.51); Absolute Neutrophil Count 4.9 X10^3/uL (2.0-7.7); Basophil# 0.04 X10^3/uL; Basophil% 0.6 % (0-1); Eosinophil# 0.11 X10^3/uL; Eosinophils% 1.5 % (0-5); Hematocrit 37.7 % (40-54); Hemoglobin 12.7 g/dL (13.0-16.5); Lymphocyte # 1.65 X10^3/ul (0.83-4.51); Lymphocyte % 22.8 % (19-41); Mean Corp Hgb Conc 33.7 g/dL (32-36); Mean Corpuscular Hgb 32.4 pg (27.0-32.0); Mean Corpuscular Volume 96.2 fL (80-94); Mean Platelet Vol. 9.8 fl (6.2-12.0); Monocyte# 0.56 X10^3/uL; Monocyte% 7.7 % (0-10); NRBC Flagged by Analyzer 0 % (0-5); Neutrophil # 4.87 X10^3/uL (2.7-7.7); Neutrophil % 67.3 % (47-70); Platelet Count 196 K/mm3 (150-450); RBC Distribution Width CV 13.4 % (11.6-14.6); RBC Distribution Width SD 47.7 fl (35.1-43.9); Red Blood Count 3.92 M/mm3 (4.6-6.2); White Blood Count 7.2 K/mm3 (4.4-11.0)
[2023-09-19 14:54] LABS: ALB/GLOB Ratio 1.4 RATIO (0.9-2.4); AST(SGOT) 72 U/L (15-37); Alanine Aminotransfer ALT/SGPT 60 U/L (16-61); Albumin, Serum 4.2 g/dL (3.2-5.0); Alkaline Phosphatase 277 U/L (45-117); Anion Gap 8 (5-15); BUN 19 mg/dL (7-18); BUN/Creat Ratio 12.9 RATIO (10-20); Calcium,Total 9.4 mg/dL (8.5-10.1); Chloride 102 mmol/L (98-107); Cholesterol 133 mg/dL (200); Creatinine, Serum 1.47 mg/dL (0.70-1.30); EST Glomerular Filtration Rate 50 mL/min (>60); Est Glom Filt Rate - Afr Amer 61 mL/min (>60); Globulin 3.1 g/dL (2.2-4.2); Glucose 104 mg/dL (74-106); High Density Lipoprotein 57 mg/dL; Magnesium 2.3 mg/dL (1.6-2.6); PSA,Total - Annual Screen 1.84 ng/mL (0.00-4.00); Potassium 3.3 mmol/L (3.5-5.1); Protein, Total 7.3 g/dL (6.4-8.2); Sodium Level 137 mmol/L (136-145); T4 Free Direct 1.24 ng/dL (0.76-1.46); Thyroid Stim Hormone (TSH) 2.03 uIU/mL (0.358-3.74); Triglycerides 213 mg/dL; Very Low Density Lipoprotein 43 mg/dL (5-40)
[2023-09-21 11:08] LABS: GGTP 1732 U/L (15-85)
== END | disposition home or self-care (01) ==
PROVIDERS: PCP Family Medicine; Visit Provider Family Medicine
DX: R74.8 Abnormal levels of other serum enzymes (principal); I48.91 Unspecified atrial fibrillation; E03.9 Hypothyroidism, unspecified; Z12.5 Encounter for screening for malignant neoplasm of prostate; E55.9 Vitamin D deficiency, unspecified
CPT/HCPCS: 36415; 80053; 80061; 82306; 82977; 83735; 84153; 84439; 84443; 85025; G0103

== ENCOUNTER → 2024-01-15 | Outpatient (CLI) | payer MEDICARE, OTHER, SELFPAY ==
[2024-01-15 09:25] LABS: Bacteria 0 SEEN /hpf (None Seen); Mucous, Urine 0 SEEN /hpf (<or=2+); Squamous Epithelial Cells - UA 0 SEEN /hpf (0-5); White Blood Cells 0 SEEN /hpf (0-5)
[2024-01-15 10:59] LABS: Protein, Urine (Random) 22.6 mg/dL (<11.9); Protein:Creat Ratio 1222 mg/g CRE (0-200)
[2024-01-15 11:29] LABS: Color, Urine Yellow (Yellow); Glucose, Dipstick 250 mg/dl (Normal); Ketone-Dipstick Negative (Negative); Leukocyte Esterase-Dipstick Negative /ul (Negative); Nitrite-Dipstick Negative (Negative); Occult Blood-Urine 50 /ul (Negative); Protein-Dipstick 30 mg/dl (Negative); Specific Gravity, Urine 1.005 (1.002-1.030); Urine Bilirubin Dipstick Negative (Negative); Urine Clarity Clear (Clear); Urine Urobilinogen Normal (Normal)
[2024-01-15 11:47] LABS: Red Blood Cells-Urine 0-5 SEEN /hpf (0-5)
[2024-01-15 12:35] LABS: Absolute Lymphocyte Count 1.54 X10^3/uL (0.83-4.51); Absolute Neutrophil Count 4.1 X10^3/uL (2.0-7.7); Basophil# 0.04 X10^3/uL; Basophil% 0.6 % (0-1); Eosinophil# 0.12 X10^3/uL; Eosinophils% 1.9 % (0-5); Hematocrit 39.5 % (40-54); Hemoglobin 13.2 g/dL (13.0-16.5); Lymphocyte # 1.54 X10^3/ul (0.83-4.51); Lymphocyte % 24.6 % (19-41); Mean Corp Hgb Conc 33.4 g/dL (32-36); Mean Corpuscular Hgb 32.8 pg (27.0-32.0); Mean Platelet Vol. 10.7 fl (6.2-12.0); Monocyte# 0.45 X10^3/uL; Monocyte% 7.2 % (0-10); NRBC Flagged by Analyzer 0 % (0-5); Neutrophil # 4.09 X10^3/uL (2.7-7.7); Neutrophil % 65.4 % (47-70); Platelet Count 211 K/mm3 (150-450); RBC Distribution Width CV 13.3 % (11.6-14.6); RBC Distribution Width SD 48.1 fl (35.1-43.9); Red Blood Count 4.03 M/mm3 (4.6-6.2); White Blood Count 6.3 K/mm3 (4.4-11.0)
[2024-01-15 12:49] LABS: Vitamin B12 469 pg/mL (211-911); Vitamin D,25 Hydroxy 57.5 ng/mL
[2024-01-15 12:54] LABS: PTHIN 50.6 pg/mL (18.4-80.1)
[2024-01-15 14:35] LABS: ALB/GLOB Ratio 1.4 RATIO (0.9-2.4); AST(SGOT) 44 U/L (15-37); Alanine Aminotransfer ALT/SGPT 40 U/L (16-61); Albumin, Serum 4.4 g/dL (3.2-5.0); Alkaline Phosphatase 232 U/L (45-117); Anion Gap 13 (5-15); BUN 19 mg/dL (7-18); BUN/Creat Ratio 15.6 RATIO (10-20); Calcium,Total 9.7 mg/dL (8.5-10.1); Chloride 104 mmol/L (98-107); Creatinine, Serum 1.22 mg/dL (0.70-1.30); EST Glomerular Filtration Rate 62 mL/min (>60); Est Glom Filt Rate - Afr Amer 75 mL/min (>60); Ferritin 96 ng/mL (26-388); Globulin 3.2 g/dL (2.2-4.2); Glucose 110 mg/dL (74-106); Iron 111 ug/dL (65-175); Iron Binding Capacity,Total 453 ug/dL (250-450); Magnesium 2.1 mg/dL (1.6-2.6); Phosphorus 2.8 mg/dL (2.5-4.9); Potassium 3.3 mmol/L (3.5-5.1); Protein, Total 7.6 g/dL (6.4-8.2); Sodium Level 141 mmol/L (136-145); T4 Free Direct 1.27 ng/dL (0.76-1.46)
[2024-01-17 10:09] LABS: GGTP 1084 IU/L (0-65)
== END | disposition home or self-care (01) ==
LOC: MFPLAB 09:21
PROVIDERS: PCP Family Medicine; Visit Provider Family Medicine
DX: N18.30 Chronic kidney disease, stage 3 unspecified (principal); I48.91 Unspecified atrial fibrillation; R74.8 Abnormal levels of other serum enzymes; E03.9 Hypothyroidism, unspecified; D64.9 Anemia, unspecified
CPT/HCPCS: 36415; 80053; 81001; 82306; 82570; 82607; 82728; 82746; 82977; 83540; 83550; 83735; 83970; 84100; 84156; 84439; 84443; 85025

== ENCOUNTER → 2024-03-17 | Outpatient (CLI) | payer MEDICARE, OTHER, SELFPAY ==
--- NOTE | 2024-03-17 10:03 | US_ITS ---
STUDY: ABDOMINAL ULTRASOUND - RIGHT UPPER QUADRANT; ELASTOGRAPHY REASON FOR VISIT: Male, 69 years old. Abnormal serum levels. TECHNIQUE: Ultrasound evaluation of the right upper quadrant was performed with real-time and static horvath-scale imaging. Point quantification shear wave elastography was performed ([employer]). TECHNICAL QUALITY: Adequate. COMPARISON: Comparison is made with prior study dated May 30, 2022. FINDINGS: Liver: The liver is enlarged and measures 20.8 cm. There is a heterogeneous echogenicity of the liver. The bile ducts are within normal limits. There is hepatic color flow. The direction of portal flow is hepatopetal. There is no demonstrated mass lesion. Median liver stiffness measured 11.5 kPa. Gallbladder: Normal distended gallbladder. The gallbladder wall measures 1 mm. There is a negative sonographic Villarreal''s sign. There is no pericholecystic fluid. There are no gallstones. Common Bile Duct (C.B.D.): The common bile duct measures 3 mm. Pancreas: There is normal echogenicity of the visualized pancreas. There is no demonstrated pancreatic mass or cyst. Right Kidney: Normal size of the right kidney. The right kidney measures 11 cm x 5.6 cm x 5.3 cm. Normal renal cortex. The right cortex measures 1.6 cm. There is no demonstrated renal mass or cyst. There is no right hydronephrosis. There is a 5 mm x 2 mm x 7 mm nonobstructive left renal calculus. US/ABD Limited w/ Elastography IMPRESSION: 1. Liver stiffness measures 11.5 kPa compatible with F2-F3 (Mild to moderate liver fibrosis) Metavir score. 2. Enlarged fatty infiltration of the liver. 3. Small nonobstructive right intrarenal calculus. Electronically Signed: Best Ahn MD at 12:13 RUST ,
== END | disposition home or self-care (01) ==
LOC: US 10:00
PROVIDERS: PCP Family Medicine; Referring Provider Family Medicine; Visit Provider Family Medicine
DX: R74.8 Abnormal levels of other serum enzymes (principal)
CPT/HCPCS: 76705; 76981

== ENCOUNTER → 2024-05-19 | Outpatient (CLI) | payer MEDICARE, OTHER, SELFPAY ==
[2024-05-19 15:27] LABS: Absolute Lymphocyte Count 1.64 X10^3/uL (0.83-4.51); Absolute Neutrophil Count 3.9 X10^3/uL (2.0-7.7); Basophil# 0.04 X10^3/uL; Basophil% 0.6 % (0-1); Eosinophil# 0.06 X10^3/uL; Hematocrit 36.9 % (40-54); Hemoglobin 12.4 g/dL (13.0-16.5); Lymphocyte # 1.64 X10^3/ul (0.83-4.51); Lymphocyte % 26.6 % (19-41); Mean Corp Hgb Conc 33.6 g/dL (32-36); Mean Corpuscular Hgb 32.8 pg (27.0-32.0); Mean Corpuscular Volume 97.6 fL (80-94); Mean Platelet Vol. 10.6 fl (6.2-12.0); Monocyte# 0.49 X10^3/uL; Monocyte% 7.9 % (0-10); NRBC Flagged by Analyzer 0 % (0-5); Neutrophil # 3.93 X10^3/uL (2.7-7.7); Neutrophil % 63.7 % (47-70); Platelet Count 189 K/mm3 (150-450); RBC Distribution Width CV 13.5 % (11.6-14.6); RBC Distribution Width SD 48.9 fl (35.1-43.9); Red Blood Count 3.78 M/mm3 (4.6-6.2); White Blood Count 6.2 K/mm3 (4.4-11.0)
[2024-05-19 15:34] LABS: PTHIN 38.1 pg/mL (18.4-80.1)
[2024-05-19 16:18] LABS: Vitamin D,25 Hydroxy 50.6 ng/mL
[2024-05-19 16:39] LABS: Protein, Urine (Random) 18.6 mg/dL (<11.9); Protein:Creat Ratio 684 mg/g CRE (0-200)
[2024-05-19 16:44] LABS: AST(SGOT) 43 U/L (15-37); Alanine Aminotransfer ALT/SGPT 40 U/L (16-61); Albumin, Serum 3.9 g/dL (3.2-5.0); Alkaline Phosphatase 229 U/L (45-117); Anion Gap 12 (5-15); BUN 21 mg/dL (7-18); BUN/Creat Ratio 14.3 RATIO (10-20); Calcium,Total 9.2 mg/dL (8.5-10.1); Chloride 107 mmol/L (98-107); Cholesterol 137 mg/dL (200); Creatinine, Serum 1.47 mg/dL (0.70-1.30); EST Glomerular Filtration Rate 50 mL/min (>60); Est Glom Filt Rate - Afr Amer 61 mL/min (>60); Globulin 3.8 g/dL (2.2-4.2); Glucose 105 mg/dL (74-106); High Density Lipoprotein 71 mg/dL; Magnesium 2.1 mg/dL (1.6-2.6); Potassium 3.4 mmol/L (3.5-5.1); Protein, Total 7.7 g/dL (6.4-8.2); Sodium Level 143 mmol/L (136-145); T4 Free Direct 1.23 ng/dL (0.76-1.46); Triglycerides 169 mg/dL; Very Low Density Lipoprotein 34 mg/dL (5-40)
[2024-05-23 04:07] LABS: GGTP 1046 IU/L (0-65)
== END | disposition home or self-care (01) ==
LOC: MFPLAB 11:59
PROVIDERS: PCP Family Medicine; Referring Provider Family Medicine; Visit Provider Family Medicine
DX: E78.00 Pure hypercholesterolemia, unspecified (principal); I48.91 Unspecified atrial fibrillation; N18.30 Chronic kidney disease, stage 3 unspecified; R74.8 Abnormal levels of other serum enzymes; E03.9 Hypothyroidism, unspecified; E55.9 Vitamin D deficiency, unspecified
CPT/HCPCS: 36415; 80053; 80061; 82306; 82570; 82977; 83735; 83970; 84100; 84156; 84439; 84443; 85025

== ENCOUNTER → 2024-05-21 | Outpatient (CLI) | payer MEDICARE, OTHER, SELFPAY ==
[2024-05-21 16:04] LABS: Vitamin B12 421 pg/mL (211-911)
[2024-05-21 16:35] LABS: Ferritin 83 ng/mL (26-388); Iron 130 ug/dL (65-175); Iron Binding Capacity,Total 476 ug/dL (250-450)
== END | disposition home or self-care (01) ==
LOC: MFPLAB 11:22
PROVIDERS: PCP Family Medicine; Referring Provider Family Medicine; Visit Provider Family Medicine
DX: D64.9 Anemia, unspecified (principal)
CPT/HCPCS: 36415; 82607; 82728; 82746; 83540; 83550

== ENCOUNTER → 2024-09-24 | Outpatient (CLI) | payer MEDICARE, OTHER, SELFPAY ==
--- NOTE | 2024-09-24 13:01 | ECHOD_ITS ---
Reason For Study Reason For Study: AFib/Flutter Procedure This was a 2D Doppler, Color Flow transthoracic echocardiogram. Exam performed in department. Left Ventricle Normal LV size. The estimated ejection fraction is 53 %. No regional wall motion abnormalities noted. Right Ventricle Normal RV size. Normal systolic function. Atria Normal left atrium. Normal right atrium. Mitral Valve Normal mitral valve. Mild (1+) eccentric mitral valve insufficiency. Tricuspid Valve Normal tricuspid valve. Mild to moderate (1-2+) tricuspid valve insufficiency. Pulmonary artery systolic pressure is 60 mmHg. Moderate pulmonary hypertension. Aortic Valve Normal aortic valve. Trisinus/trileaflet aortic valve. Mild (1+) eccentric aortic valve insufficiency. Pulmonic Valve Normal pulmonic valve. Great Vessels Normal aortic root. The pulmonary artery is normal size. Inferior vena cava collapse with sniff. Pericardium/Pleural No pericardial effusion. MMode/2D Measurements & Calculations LVIDd: 5.5 cm IVSd: 0.87 cm Ao root diam: 3.8 cm LVIDs: 3.5 cm LVPWd: 0.94 cm RVDd: 4.3 cm FS: 37.2 % LAV(MOD-bp): 85.2 ml LVAd ap4: 30.3 cm2 SV(MOD-sp4): 56.2 ml LAV(MOD-bp) Indexed: 46.7 ml/m2 LVLd ap4: 7.1 cm SI(MOD-sp4): 30.8 ml/m2 LAV(MOD-sp2): 64.4 ml EDV(MOD-sp4): 106.0 ml LAV(MOD-sp4): 96.9 ml EDV(sp4-el): 110.1 ml LVAs ap4: 19.1 cm2 LVLs ap4: 6.5 cm ESV(MOD-sp4): 49.8 ml ESV(sp4-el): 47.3 ml EF(MOD-sp4): 53.0 % EF(sp4-el): 57.0 % SV(sp4-el): 62.8 ml LA A4 area: 28.9 cm2 LA dimension(2D): 5.3 cm RA A4 area: 28.2 cm2 TAPSE: 2.7 cm Doppler Measurements & Calculations MV E max timmy: 99.0 cm/sec MV V2 max: 101.4 cm/sec Ao V2 max: 125.5 cm/sec MV max P.1 mmHg Ao max P.3 mmHg MV V2 mean: 53.7 cm/sec Ao V2 mean: 83.3 cm/sec MV mean P.4 mmHg Ao mean P.2 mmHg MV V2 VTI: 25.6 cm Ao V2 VTI: 29.5 cm AV (velocity ratio): 0.75 AI max timmy: 504.9 cm/sec LV V1 max: 100.8 cm/sec MR max timmy: 557.4 cm/sec AI max P.1 mmHg LV V1 max P.1 mmHg MR max P.3 mmHg LV V1 mean P.2 mmHg MR mean timmy: 442.3 cm/sec AI dec slope: 324.9 cm/sec2 LV V1 mean: 69.7 cm/sec MR mean P.9 mmHg AI P1/2t: 455.2 msec LV V1 VTI: 22.1 cm MR VTI: 196.6 cm PA V2 max: 100.7 cm/sec TR max timmy: 364.0 cm/sec TR max P.0 mmHg ECHO/Echo Complete Interpretation Summary Normal LV size. The estimated ejection fraction is 53 %. No regional wall motion abnormalities noted. Moderate pulmonary hypertension. Pulmonary artery systolic pressure is 60 mmHg. Ordering Physician: Homar Cordero Referring Physician: Homar Cordero Performed By: Jeff Thakkar RCS
--- OUTSIDE RECORDS SUMMARY | 2024-09-24 13:43 | XMS RPT_ITS | CCD ---
Author Organization [facility] [place] ion [facility] Care Team Providers Care Director Of Diagnostic Imaging Name Role Phone Chai DOMINGUEZ, Anna Dye Unavailable [phone] Nancy Perdue LPN Unavailable Unavailab veronique Paula RN, Anna Dye Unavailable Nancy Perdue LPN Unavailable Unavailab GETACHEW Mccall Unavailable Unavailable ZENIA MEMBRENO Unavailable Unavailable Zenia Ruiz [phone] Unavailable Unav ailable ZENIA HAMILTON Unavailable Unavailable Heidi ROSS Unavailable Unavailable Guillermo Hernandez [phone] Unavailable Unavailable SÁNCHEZ KAMARA Unavailable Unavailable ZENIA HAMILTON Unavailable Unavailable RANDY MAGALLON Unavailable Unavailable JOHANA DENTON Unavailable Unavailable ZENIA MEMBRENO Unavailable Unavailable ANH DIAZ Unavailable Unavailable GETACHEW BONDS Unavailable Unavailable Dr. Getachew Ruffin Referring Provider [phone] Homar Cordero Attending Provider Dr. Getachew Nicholas Primary Care Provider [phone] Dr. Chuck Vega Attending Provider Dr. Getachew Nicholas Primary Care Provider Dr. Getachew Nicholas Referring Provider Roof SURFACER, SURFACER-C Getachew Garcia Attending Provider Getachew Nicholas Primary Care Unavailable Getachew Nicholas Attending Unavailable Getachew Nicholas Attending Unavailable Getachew Nicholas Referring Unavailable Getachew Nicholas Primary Care Unavailable Getachew Nicholas Referring Unavailable Getachew Nicholas Primary Care Unavailable Getachew Nicholas Attending Unavailable Getachew Nicholas Referring Unavailable Getachew Nicholas Primary Care Unavailable Getachew Nicholas Attending Unavailable Getachew Nicholas Referring Unavailable Homar Cordero Attending Unavailable Getachew iNcholas Primary Care Unavailable Caitlin Oliveros NP Attending Unavailable Getachew Nicholas Referring Unavailable Getachew Nicholas Primary Care Unavailable Caitlin Oliveros NP Attending Unavailable Caitlin Oliveros NP Referring Unavailable Getachew Nicholas Primary Care Unavailable Getachew Nicholas Attending Unavailable Getachew Nicholas Primary Care Unavailable Allergies Allergy Classification Reported Allergen(s) Allergy Type Date of Onset Reaction(s) Facility (4 sources) Bananas drug allergy 7 [facility] Work Phone: (4 sources) metoprolol Drug Allergy 7 dizziness, nausea [facility] Work Phone: (10 sources) banana extract; Translations: [Banana] Drug Allergy [address] [facility] Repository (1 source) metoprolol; Translations: [Toprol XL] Drug Allergy [facility] Repository (8 sources) Metoprolol Drug Allergy 1 Nausea [facility] (8 sources) quinapril Drug Allergy 1 angioedema, anaphylaxis [facility] (2 sources) Angiotensin Converting Enzyme ([place]) Inhibitors Allergy to substance 3 Angioedema [facility] (2 sources) ARB-Angiotensin Receptor Antagonist Allergy to substance 3 Angioedema [facility] (1 source) Angiotensin Converting Enzyme ([place]) Inhibitors Drug allergy (disorder) 4 [facility] Repository (1 source) Metoprolol Drug Allergy 4 [facility] Repository (1 source) quinapril Drug Allergy 4 [facility] Repository (1 source) ARB-Angiotensin Receptor Antagonist Drug allergy (disorder) 4 [facility] Repository Medications Current Medications Medication Drug Class(es) Dates Sig (Normalized) Sig (Original) apixaban 5 mg oral tablet (12 sources) Factor Xa Inhibitor Start: 09-19-2016 take 5 mg by mouth twice daily Apixaban Active 5 MG PO TWICE A DAY September 18, 2016 11:00pm carvedilol 25 mg oral tablet (20 sources) alpha-Adrenergic Ravinder, beta-Adrenergic Ravinder Start: 09-22-2018 take 25 mg by mouth twice daily Carvedilol Active 25 MG PO TWICE A DAY 60 September 21, 2018 11:00pm Start: 03-15-2017 End: 09-22-2018 take 12.5 mg by mouth twice daily Carvedilol Discontinued 12.5 MG PO TWICE A DAY March 15, 2017 10:42am September 22, 2018 10:13am Start: 09-19-2016 End: 03-15-2017 take 25 mg by mouth twice daily Carvedilol Discontinued 25 MG PO TWICE A DAY September 18, 2016 11:00pm March 15, 2017 10:44am cholecalciferol 0.05 mg oral capsule (7 sources) Vitamin D Start: 11-10-2021 take 50 ug by mouth once daily Cholecalciferol (Vitamin D3) Active 50 MCG PO DAILY November 09, 2021 11:00pm dapagliflozin 10 mg oral tablet (1 source) Sodium-Glucose Cotransporter 2 Inhibitor Start: 01-08-2023 take 1 tablet by mouth once daily Dapagliflozin Propanediol (Farxiga) 10 mg tablet Active 10 MG PO DAILY January 07, 2023 11:00pm 24 hr dilTIAZem hydrochloride 300 mg extended release oral capsule (20 sources) Calcium Channel Ravinder Start: 11-04-2018 End: 03-22-2022 take 1 capsule by mouth once daily, then take 1 capsule by mouth every twenty-four hours Diltiazem Hcl (Tiadylt Er) 300 mg capsule,extended release 24 hr Active 300 MG PO DAILY March 22, 2022 12:00am Start: 09-20-2018 End: 11-04-2018 take 300 mg by mouth once daily Diltiazem Hcl Disconti nued 300 MG PO DAILY September 19, 2018 11:00pm November 04, 2018 8:44am Start: 03-15-2017 End: 05-07-2017 take 360 mg by mouth once Diltiazem Hcl Discontinued 3 60 MG PO ONCE March 15, 2017 12:00am May 07, 2017 2:53pm Start: 10-18-2016 End: 03-15-2017 take 360 mg by mouth once daily Diltiazem Hcl Disconti nued 360 MG PO DAILY October 18, 2016 2:49pm March 15, 2017 10:44am Start: 09-26-2016 take 1 tablet by laura th once daily CARDIZEM CD 360 MG [id number] One tablet by mouth daily DILTIAZEM HCL COATED BEADS [id number] Rosendo Upton MD Start: 09-19-2016 End: 10-18-2016 take 240 mg by mouth once daily Diltiazem Hcl Disconti nued 240 MG PO DAILY September 18, 2016 11:00pm October 18, 2016 2:50pm doxazosin 4 mg oral tablet (8 sources) alpha-Adrenergic Ravinder Start: 09-15-2021 End: 08-03-2022 take 4 mg by mouth once daily Doxazosin Active 4 MG PO DAILY August 03, 2022 12:30pm hydroCHLOROthiazide 25 mg / triamterene 37.5 mg oral tablet (16 sources) Potassium-sparing Diuretic, Thiazide Diuretic Start: 09-20-2018 End: 11-04-2018 take 1 tablet by mouth once daily Triamterene-[place] chlorothiazid Active 1 TABLET PO DAILY November 04, 2018 8:44am omeprazole 20 mg delayed release oral capsule (12 sources) Proton Pump Inhibitor Start: 09-19-2016 take 20 mg by mouth once daily Omeprazole Active 20 MG PO DAILY September 18, 2016 11:00pm rosuvastatin calcium 10 mg oral tablet (15 sources) HMG-CoA Reductase Inhibitor Start: 09-15-2021 End: 08-03-2022 take 10 mg by mouth once daily Rosuvastatin Active 10 MG PO DAILY August 03, 2022 12:05pm levothyroxine sodium 0.088 mg oral tablet (20 sources) l-Thyroxine Start: 01-08-2023 Levothyroxine Active MCG PO January 07, 2023 11:00pm Start: 01-08-2020 End: 01-08-2023 take 75 ug by mouth once daily Levothyroxine Discontin ued 75 MCG PO DAILY January 08, 2020 8:06am January 08, 2023 9:52am Start: 09-19-2016 End: 01-08-2020 take 50 ug by mouth once daily Levothyroxine Discontin ued 50 MCG PO DAILY May 14, 2019 9:38am January 08, 2020 8:06am Completed/Discontinued Medications Medication Drug Class(es) Dates Sig (Normalized) Sig (Original) acetaminophen 325 mg / HYDROcodone bitartrate 5 mg oral tablet (2 sources) Opioid Agonist Start: 06-14-2022 End: 01-08-2023 take 1 tablet by mouth every six hours as needed Hydrocodone-Aceta minophen Discontinued 1 TABLET PO EVERY 6 HOURS NEEDED 10 June 15, 2022 January 08, 2023 9:53am amLODIPine 5 mg oral tablet (7 sources) Dihydropyridine Calcium Channel Ravinder Start: 09-15-2021 End: 09-15-2021 take 5 mg by mouth once daily Amlodipine Discontinued 5 MG PO DAILY September 14, 2021 11:00pm September 15, 2021 9:56am aspirin 81 mg delayed release oral tablet (12 sources) Nonsteroidal Anti-inflammatory Drug Start: 09-26-2016 take 1 tablet by mouth once daily ASPIRIN EC 81 MG TBEC One tablet by mouth daily ASPIRIN [id number] Toña Ca RN Start: 09-19-2016 take 81 mg by mouth once daily Aspirin Active 81 MG PO DAILY September 18, 2016 11:00pm cephalexin 500 mg oral capsule (2 sources) Cephalosporin Antibacterial Start: 06-14-2022 End: 01-08-2023 take 500 mg by mouth every six hours Cephalexin Discontinued 500 MG PO EVERY 6 HOURS 40 June 14, 2022 12:00am January 08, 2023 9:53am clopidogrel 75 mg oral tablet (8 sources) P2Y12 Platelet Inhibitor Start: 09-27-2016 End: 10-19-2016 take 1 tablet by mouth once daily PLAVIX 75 MG TABS One tablet by mouth daily CLOPIDOGREL BISULFATE [id number] Toña Ca RN diphenhydrAMINE hydrochloride 25 mg oral capsule (8 sources) Histamine-1 Receptor Antagonist Start: 09-22-2018 End: 11-04-2018 take 25 mg by mouth three times daily Diphenhydramine Hcl Discontinued 25 MG PO THREE TIMES A DAY 9 September 21, 2018 11:00pm November 04, 2018 8:45am continue for 3 more days (over the counter) 0.8 ml enoxaparin sodium 100 mg/ml prefilled syringe (8 sources) Low Molecular Weight Heparin Start: 09-27-2016 End: 10-19-2016 LOVENOX 80 MG/0.8ML SOLN one subcutaneous injection twice daily. First dose 10/15/16 pm last dose 10/18/16 pm ENOXAPARIN SODIUM [id number] Rosendo Upton MD ezetimibe 10 mg oral tablet (20 sources) Dietary Cholesterol Absorption Inhibitor Start: 06-05-2019 End: 07-29-2020 take 1 tablet by mouth once daily Ezetimibe Discontinued 0 .ROUTE .COMPLEX 90 April 04, 2020 1:07pm July 29, 2020 10:14am TAKE 1 TABLET BY MOUTH ONCE DAILY famotidine 20 mg oral tablet (8 sources) Histamine-2 Receptor Antagonist Start: 09-22-2018 End: 11-04-2018 take 20 mg by mouth once daily Famotidine Discontinued 20 MG PO DAILY September 21, 2018 11:00pm November 04, 2018 8:45am continue for three more days fenofibrate 134 mg oral capsule (16 sources) Peroxisome Proliferator Receptor alpha Agonist Start: 07-29-2020 End: 03-22-2022 Fenofibrate Micronized Discontinued 0 .ROUTE .COMPLEX 90 May 25, 2021 4:51pm March 22, 2022 11:28am TAKE 1 CAPSULE EVERY DAY furosemide 40 mg oral tablet (12 sources) Loop Diuretic Start: 09-27-2016 End: 03-15-2017 take 40 mg by mouth once daily Furosemide Discontinued 40 MG PO DAILY October 17, 2016 11:00pm March 15, 2017 10:55am isosorbide (20 sources) Start: 11-13-2016 ISOSORBIDE MONONITRATE ER [id number] 15mg daily -HOLD ISOSORBIDE MONONITRATE [id number] Anna Flynn PA-C Start: 11-13-2016 ISOSORBIDE MON ONITRATE ER [id number] 15mg daily ISOSORBIDE MONONITRATE [id number] Mari Quiros Start: 10-19-2016 End: 03-15-2017 take 30 mg by mouth once daily Isosorbide Mononitrate Discontinued 30 MG PO DAILY November 12, 2016 11:00pm March 15, 2017 10:44am isosorbide dinitrate 30 mg oral tablet (4 sources) Nitrate Vasodilator Start: 10-19-2016 take 1 tablet by mouth once daily ISOSORBIDE DINITRATE 30 MG TABS One tablet by mouth daily ISOSORBIDE DINITRATE [id number] Getachew Hillman SURFACER microencapsulated potassium chloride 20 meq extended release oral tablet (12 sources) Start: 10-18-2016 End: 03-15-2017 take 20 mEq by mouth once daily Potassium Chloride Discontinued 20 MEQ PO DAILY October 17, 2016 11:00pm March 15, 2017 10:55am Start: 09-27-2016 take 1 tablet by laura th once daily POTASSIUM CHLORIDE ER 20 MEQ CR-TABS One tablet by mouth daily POTASSIUM CHLORIDE [id number] Rosendo Upton MD predniSONE 10 mg oral tablet (8 sources) Start: 09-22-2018 End: 11-04-2018 Prednisone Discontinued 10 MG PO DIRECTED September 21, 2018 11:00pm November 04, 2018 8:45am TAKE 4 TABLETS BY MOUTH DAILY WITH FOOD FOR 3 DAYS, THEN TAKE 3 TABLETS BY MOUTH DAILY WITH FOOD FOR 3 DAYS, THEN TAKE 2 TABLETS BY MOUTH DAILY WITH FOOD FOR 3 DAYS, THEN TAKE 1 TABLETS BY MOUTH DAILY WITH FOOD FOR 3 DAYS, THEN STOP quinapril 20 mg oral tablet (20 sources) Angiotensin Converting Enzyme Inhibitor Start: 09-20-2018 End: 09-22-2018 take 20 mg by mouth once daily Quinapril Discontinued 20 MG PO DAILY September 19, 2018 11:00pm September 22, 2018 10:15am Start: 05-27-2017 End: 05-22-2018 take 20 mg by mouth once daily Quinapril Discontinued 20 MG PO daily May 27, 2017 8:57am May 22, 2018 3:13pm Start: 05-23-2017 End: 05-27-2017 take 2 tablets by mouth in the evening Quinapril Discontinued 20 MG PO .COMPLEX 60 May 23, 2017 5:02pm May 27, 2017 8:57am 20 mg PO 1 tablet in the am and 2 tablets (10 mg) in the pm Start: 05-13-2017 End: 05-23-2017 take 2 tablets by mouth in the evening Quinapril Discontinued 5 MG PO .COMPLEX 60 May 13, 2017 6:29pm May 23, 2017 5:03pm 5 mg PO 1 tablet in the am and 2 tablets (10 mg) in the pm Start: 05-07-2017 End: 05-13-2017 take 5 mg by mouth twice daily Quinapril Discontinued 5 MG PO TWICE A DAY 60 May 07, 2017 12:00am May 13, 2017 6:30pm Start: 03-15-2017 End: 05-07-2017 take 10 mg by mouth once daily Quinapril Discontinued 10 MG PO DAILY March 15, 2017 10:43am May 07, 2017 3:59pm Start: 09-19-2016 End: 03-15-2017 take 20 mg by mouth once daily Quinapril Discontinued 20 MG PO DAILY September 18, 2016 11:00pm March 15, 2017 10:44am simvastatin 20 mg oral tablet (20 sources) HMG-CoA Reductase Inhibitor Start: 11-10-2019 End: 09-15-2021 take 10 mg by mouth at bedtime Simvastatin Discontinued 10 MG PO AT BEDTIME 45 November 07, 2020 1:35pm September 15, 2021 9:29am Start: 09-19-2016 End: 11-10-2019 take 20 mg by mouth at bedtime Simvastatin Discontinue d 20 MG PO AT BEDTIME November 03, 2018 11:00pm November 10, 2019 7:09am Problems Active Problems Problem Classification Problem Date Documented Da te Episodic/Chronic Abdominal pain (12 sources) Abdominal discomfort; Translations: [Unspecified abdominal pain] Onset: 02-20-2017 02-20-2017 Episodic Allergic reactions (8 sources) Anaphylaxis; Translations: [Anaphylactic shock, unspecified, initial encounter] 07-03-2021 Episodic Cardiac and circulatory congenital anomalies (8 sources) Patent ductus arteriosus; Translations: [Patent ductus arteriosus] 09-21-2018 Chronic Cardiac dysrhythmias (20 sources) Paroxysmal atrial fibrillation; Translations: [Paroxysmal atrial fibrillation] Onset: 02-09-2016 09-26-2016 Chronic Chronic kidney disease (1 source) Chronic kidney disease; Translations: [Chronic kidney disease, stage 3 unspecified] Onset: 02-07-2024 Deficiency and other anemia (1 source) Anemia, unspecified; Translations: [Anemia, unspecified] Onset: 06-05-2024 Episodic Disorders of lipid metabolism (20 sources) Hyperlipidemia; Translations: [Hyperlipidemia, unspecified] Onset: 02-09-2016 09-26-2016 Chronic Esophageal disorders (1 source) Gastro-esophageal reflux disease without esophagitis; Translations: [GERD WITHOUT ESOPHAGITIS] Onset: 02-09-2016 Chronic Essential hypertension (19 sources) Hypertensive disorder; Translations: [Essential (primary) hypertension] Onset: 02-09-2016 09-26-2016 Chronic Occlusion or stenosis of precerebral arteries (1 source) Occlusion and stenosis of right carotid artery; Translations: [OCCLUSION AND STENOSIS RT CAROTID ART] Onset: 02-09-2016 Chronic Other aftercare (2 sources) Drug therapy finding; Translations: [assisted (current) use of anticoagulants] 06-14-2022 Episodic Pulmonary heart disease (12 sources) Pulmonary hypertension; Translations: [Pulmonary arterial hypertension] Onset: 11-13-2016 11-13-2016 Chronic Residual codes; unclassified (1 source) Obstructive sleep apnea (adult) (pediatric); Translations: [Obstructive sleep apnea (adult)(pediatric)] Chronic Skin and subcutaneous tissue infections (2 sources) Cellulitis of leg, excluding foot; Translations: [Cellulitis of left lower limb] 06-14-2022 Episodic Substance-related disorders (13 sources) Tobacco dependence in remission; Translations: [Nicotine dependence, other tobacco product, uncomplicated] Onset: 02-09-2016 11-13-2016 Chronic Syncope (15 sources) Near syncope; Translations: [Syncope and collapse] Onset: 02-04-2016 09-26-2016 Episodic Thyroid disorders (9 sources) Hypothyroidism, unspecified; Translations: [Hypothyroidism] Onset: 02-09-2016 07-03-2021 Chronic Transient cerebral ischemia (8 sources) Cerebral ischemia; Translations: [Transient cerebral ischemic attack, unspecified] 07-03-2021 Chronic Unclassified (19 sources) Obstructive sleep apnea syndrome; Translations: [Obstructive sleep apnea (adult) (pediatric)] Onset: 11-13-2016 11-13-2016 Chronic Unclassified (4 sources) Long-term drug therapy; Translations: [Other termite exterminator (current) drug therapy] Onset: 09-26-2016 09-26-2016 Viral infection (2 sources) Disease caused by 2019-nCoV; Translations: [COVID-19] 06-14-2022 Episodic Past or Other Problems Problem Classification Problem Date Documented Date Episodic/Chronic Fluid and electrolyte disorders (3 sources) Dehydration; Translations: [Hypokalemia] Onset: 02-09-2016 Episodic Other aftercare (1 source) termite exterminator (current) use of anticoagulants; Translations: [COMPLEX HUMAN RESOURCES MANAGER CURRNT USE ANTICOAGULANTS] Onset: 02-09-2016 Episodic Other circulatory disease (2 sources) Personal history of transient ischemic attack (TIA), and cerebral infarction without residual deficits; Translations: [Hypotension, unspecified] Onset: 02-09-2016 Episodic Other liver diseases (1 source) Abnormal levels of other serum enzymes; Translations: [Abnormal levels of other serum enzymes] Onset: 04-18-2024 Episodic Residual codes; unclassified (8 sources) History of cardioversion; Translations: [Other specified postprocedural states] Onset: 11-14-2016 07-03-2021 Episodic Residual codes; unclassified (8 sources) History of cardiac catheterization; Translations: [Other specified postprocedural states] Onset: 10-19-2016 07-03-2021 Episodic Unclassified (4 sources) Body mass index (BMI) 27.0-27.9, adult; Translations: [Body mass index (BMI) 27.0-27.9, adult] Onset: 11-02-2016 11-02-2016 Episodic Results Test Name Value Interpretation Reference Range Facility Cardiology Visit Reporton Cardiology Visit Report [facility] [address] [place], [place] [address] OFFICE VISIT Date of Service: 08/04/24 MR#: [id number] Acct: [id number] Name: ZENIA JC Rep #: [id number] : 1955 Provider: Dr. Homar Cordero MD Age/Sex: 69/M Location: [facility] [place] Status: Signed HPI HPI History of Present Illness Details: Mr. Jc is a very pleasant 69-year-old nondiabetic gentleman with a history of hypertension, atrial fibrillation with unsuccessful cardioversion, status post TIA, obstructive sleep apnea with BiPAP, hypercholesterolemia, and history of patent ductus arteriosus. Patient also has a history of nonobstructive coronary disease and dilated cardiomyopathy as evidenced by catheterization on 10/19/2016 at [facility]. The patient was admitted to [facility] on 09/22/2018 with what appears to be an allergic reaction/angioedema possibly due to quinapril. Patient was treated with Benadryl, steroids, H2 blockers, and admitted for observation. The major problem at this time is that his blood pressure does not appear to be very well regulated. Pt denies chest, arm, jaw, or neck discomfort. His exercise tolerance is stable. Pt denies symptoms of CHF, palpitations, lightheadedness, dizziness, near syncopal or syncopal episodes. He states bilateral lower extremity edema that improves overnight. This is improved compared to previous. Pt denies claudication issues. Pt. denies orthopnea, PND, fever, chills, cough, blood in urine, blood in stool, epistaxis, myalgia, or unexplainable fatigue. He states his blood pressure at home is better controlled 120s-130s/60s-70s. Heart rate is typically 70s-80s. He unfortunately does not have much documentation for this. Intake Vital Signs 06/13/23 15:06 01/14/24 07:44 08/04/24 11:31 Height 5 ft 5 in 5 ft 5 in 5 ft 5 in Weight: 174 lb BMI 28.9 BP 177/91 H Blood Pressure Location Lt brachial Position Sitting Respiration 16 Pulse 69 Pulse Source Monitor Intake Visit Reasons: 1 Y FU Board Attendant Required: No Accompanied by: Self Is patient in pain?: No Allergies quinapril Allergy (Severe, Verified 01/14/24 11:22) angioedema, anaphylaxis [place] Inhibitors Allergy (Verified 01/14/24 11:22) Angioedema ARB-Angiotensin Receptor Antagonist Allergy (Verified 01/14/24 11:22) Angioedema banana Allergy (Verified 01/14/24 11:22) Unknown metoprolol (From Toprol XL) Adverse Reaction (Verified 01/14/24 11:22) Nausea Medications ???Medication ???Instructions ???Recorded ???Confirmed ???Type apixaban 5 mg tablet 5 mg PO BID blood thinner 09/19/16 08/04/24 History aspirin 81 mg chewable tablet 81 mg PO DAILY heart health 08/04/24 History omeprazole 20 mg capsule,delayed 20 mg PO DAILY acid reflux 7 08/04/24 History release carvedilol 25 mg tablet 25 mg PO BID #60 tabs 09/22/18 Rx triamterene 37.5 1 tab PO DAILY blood pressure 10/0808/04/24 History mg-hydrochlorothiazid e 25 mg tablet cholecalciferol (vitamin D3) 50 50 mcg PO DAILY 11/10/21 08/04/24 History mcg (2,000 unit) capsule dapagliflozin propanediol 10 mg 10 mg PO DAILY 01/08/23 08/04/24 H istory tablet (Farxiga) diltiazem HCl 360 mg capsule,24 360 mg PO DAILY 06/13/23 08/04/24 History hr,extended release (Tiadylt ER) levothyroxine 88 mcg tablet 88 mcg PO DAILY 06/13/23 08/04/24 History potassium gluconate 595 mg (99 mg) 595 mg PO DAILY 06/13/23 5 History tablet rosuvastatin 10 mg tablet 10 mg PO DAILY #90 tabs 08/09/23 0 08/04/24 Rx doxazosin 8 mg tablet 8 mg PO DAILY #90 TABLETS 08/04/24 08/04/24 Rx Have you fallen in the past year?: No PFSH Medical History Fatty liver Essential hypertension Longstanding persistent atrial fibrillation Anaphylactic reaction Tobacco dependence in remission Obstructive sleep apnea Secondary pulmonary arterial hypertension Hypothyroidism HLD (hyperlipidemia) Atrial fibrillation with RVR TIA (transient ischemic attack) Surgical History History of cardioversion (11/14/16) History of left heart catheterization (10/19/16) History of tonsillectomy Patent ductus arteriosus Family History Mother Hypertension Social History Smoking Status: Former smoker second hand exposure: Yes alcohol intake: current alcohol intake frequency: holidays/special occasions only Alcohol type: beer substance use type: does not use caffeine: Yes Type: coffee eating out: rarely or never during the past year weight has: remained stable what type of physical activity do you p (more content not included)... Normal [facility] L501.5101on 05-23-2024 GGTP 1046 IU/L Abnormal 0-65 [facility] Comment on above: Order Comment: Order Date: 05/22/23 Order Info: [id number] - CMP Order Info: [id number] - LIPID Order Info: [id number] - MG Order Info: [id number] - TSH Order Info: [id number] - PSA Order Info: [id number] - T4F Performed By: #### L 501.5200, L500.4100, L100.0100, L501.9520, L506.0400, L501.9910, L500.4050, L506.1000 #### [facility] [address] [place], [place], [id number] Ferritinon 05-21-2024 Ferritin [Mass/Vol] 83 ng/mL Normal 26-388 [facility] Comment on above: Order Comment: Order Date: 05/22/23 Order Info: [id number] - VITD25 Performed By: #### L 501.5200, L500.4100, L100.0100, L501.9520, L506.0400, L501.9910, L500.4050, L506.1000 #### [facility] [address] [place], [place], [id number] Folates, (Folic Acid)on 05-09 FOLATES 35.30 ng/mL Normal 3.1-55.4 [facility] Comment on above: Order Comment: Order Date: 05/22/23 Order Info: [id number] - VITD25 Performed By: #### L 501.5200, L500.4100, L100.0100, L501.9520, L506.0400, L501.9910, L500.4050, L506.1000 #### [facility] [address] [place], [place], [id number] Ironon 05-21-2024 Iron [Mass/Vol] 130 ug/dL Normal 65-175 [facility] Comment on above: Order Comment: Order Date: 05/22/23 Order Info: [id number] - VITD25 Performed By: #### L 501.5200, L500.4100, L100.0100, L501.9520, L506.0400, L501.9910, L500.4050, L506.1000 #### [facility] [address] [place], [address] Iron Binding Capacity,Totalo n 05-21-2024 TIBC 476 ug/dL High 250-450 [facility] Comment on above: Order Comment: Order Date: 05/22/23 Order Info: 62390-7 - VITD25 Performed By: #### L 501.5200, L500.4100, L100.0100, L501.9520, L506.0400, L501.9910, L500.4050, L506.1000 #### [facility] [address] [place], [address] Vitamin B12on 05-21-2024 Cobalamin (Vitamin B12) [Mass/Vol] 421 pg/mL Normal 211-911 [facility] Comment on above: Order Comment: Order Date: 05/22/23 Order Info: 28466-9 - VITD25 Performed By: #### L 501.5200, L500.4100, L100.0100, L501.9520, L506.0400, L501.9910, L500.4050, L506.1000 #### [facility] [address] [place], [address] CBC W/Diff, Automatedon 05-09 Absolute Lymph 1.64 X10 3/uL Normal 0.83-4.51 [facility] Comment on above: Order Comment: Order Date: 05/22/23 Order Info: 0786-1 - CMP Order Info: [id number] - LIPID Order Info: 49532-9 - MG Order Info: 3016-3 - TSH Order Info: 2857-1 - PSA Order Info: 3024-7 - T4F Performed By: #### L 501.5200, L500.4100, L100.0100, L501.9520, L506.0400, L501.9910, L500.4050, L506.1000 #### [facility] [address] [place], [address] Absolute Neut 3.9 X10 3/uL Normal 2.0-7.7 [facility] Comment on above: Order Comment: Order Date: 05/22/23 Order Info: 86-1 - CMP Order Info: 66443-5 - LIPID Order Info: 06983-8 - MG Order Info: 3015-3 - TSH Order Info: 2856-1 - PSA Order Info: 3024-7 - T4F Performed By: #### L 501.5200, L500.4100, L100.0100, L501.9520, L506.0400, L501.9910, L500.4050, L506.1000 #### [facility] [address] [place], [address] Basophils/100 WBC (Bld) 0.6 % Normal 0-1 [facility] Comment on above: Order Comment: Order Date: 05/22/23 Order Info: 785-1 - CMP Order Info: 85460-6 - LIPID Order Info: 91716-8 - MG Order Info: 3015-3 - TSH Order Info: 1 - PSA Order Info: 3024-7 - T4F Performed By: #### L 501.5200, L500.4100, L100.0100, L501.9520, L506.0400, L501.9910, L500.4050, L506.1000 #### [facility] [address] [place], [address] Eosinophils/100 WBC (Bld) 1.0 % Normal 0-5 [facility] Comment on above: Order Comment: Order Date: 05/22/23 Order Info: 86-1 - CMP Order Info: 10669-9 - LIPID Order Info: 26388-8 - MG Order Info: 3015-3 - TSH Order Info: 2857-1 - PSA Order Info: 3024-7 - T4F Performed By: #### L 501.5200, L500.4100, L100.0100, L501.9520, L506.0400, L501.9910, L500.4050, L506.1000 #### [facility] [address] [place], [address] Erythrocyte distribution width (RBC) [Ratio] 13.5 % Normal 11.6-14.6 [facility] Comment on above: Order Comment: Order Date: 05/22/23 Order Info: 07-1 - CMP Order Info: 39391-7 - LIPID Order Info: [id number] - MG Order Info: 3015-3 - TSH Order Info: 2856-04 - PSA Order Info: 3027 - T4F Performed By: #### L 501.5200, L500.4100, L100.0100, L501.9520, L506.0400, L501.9910, L500.4050, L506.1000 #### [facility] [address] [place], [address] Hematocrit (Bld) [Volume fraction] 36.9 % Low 40-54 [facility] Comment on above: Order Comment: Order Date: 05/22/23 Order Info: 0786-1 - CMP Order Info: 87071-4 - LIPID Order Info: 29120-5 - MG Order Info: 3015-3 - TSH Order Info: 2856-04 - PSA Order Info: 302-7 - T4F Performed By: #### L 501.5200, L500.4100, L100.0100, L501.9520, L506.0400, L501.9910, L500.4050, L506.1000 #### [facility] [address] [place], [address] Hemoglobin (Bld) [Mass/Vol] 12.4 g/dL Low 13.0-16.5 [facility] Comment on above: Order Comment: Order Date: 05/22/23 Order Info: 0786-1 - CMP Order Info: 82561-9 - LIPID Order Info: 32900-2 - MG Order Info: 3015-06 - TSH Order Info: 2856-04 - PSA Order Info: 3023-10 - T4F Performed By: #### L 501.5200, L500.4100, L100.0100, L501.9520, L506.0400, L501.9910, L500.4050, L506.1000 #### [facility] [address] [place], [address] IG% 0.200 Normal 0.0-0.9 [facility] Comment on above: Order Comment: Order Date: 05/22/23 Order Info: 785- - CMP Order Info: 28137-1 - LIPID Order Info: 35530-5 - MG Order Info: 3015-06 - TSH Order Info: 2856-04 - PSA Order Info: 3023-10 - T4F Result Comment: IG% - Immature Granulocytes (promyelocytes, myelocytes and metamyelocytes) > 1% indicates that a LEFT SHIFT is Present. Performed By: #### L 501.5200, L500.4100, L100.0100, L501.9520, L506.0400, L501.9910, L500.4050, L506.1000 #### [facility] [address] [place], [address] Lymphocytes/100 WBC (Bld) 26.6 % Normal 19-41 [facility] Comment on above: Order Comment: Order Date: 05/22/23 Order Info: 785-04 - CMP Order Info: - LIPID Order Info: [id number] - MG Order Info: 3015-06 - TSH Order Info: 2856-04 - PSA Order Info: 3023-10 - T4F Performed By: #### L 501.5200, L500.4100, L100.0100, L501.9520, L506.0400, L501.9910, L500.4050, L506.1000 #### [facility] [address] [place], [address] MCH (RBC) [Entitic mass] 32.8 pg High 27.0-32.0 [facility] Comment on above: Order Comment: Order Date: 05/22/23 Order Info: 86-1 - CMP Order Info: [id number] - LIPID Order Info: 26194-5 - MG Order Info: 3016-3 - TSH Order Info: 285-1 - PSA Order Info: 302-7 - T4F Performed By: #### L 501.5200, L500.4100, L100.0100, L501.9520, L506.0400, L501.9910, L500.4050, L506.1000 #### [facility] [address] [place], [place], [address] MCHC (RBC) [Mass/Vol] 33.6 g/dL Normal 32-36 [facility] Comment on above: Order Comment: Order Date: 05/22/23 Order Info: 785- - CMP Order Info: - LIPID Order Info: [id number] - MG Order Info: 3 - TSH Order Info: 2856-04 - PSA Order Info: 3023-7 - T4F Performed By: #### L 501.5200, L500.4100, L100.0100, L501.9520, L506.0400, L501.9910, L500.4050, L506.1000 #### [facility] [address] [place], [place], [address] MCV (RBC) [Entitic vol] 97.6 fL High 80-94 [facility] Comment on above: Order Comment: Order Date: 05/22/23 Order Info: 785-1 - CMP Order Info: 69936-2 - LIPID Order Info: 49040-0 - MG Order Info: 301-3 - TSH Order Info: 28571 - PSA Order Info: 3024-7 - T4F Performed By: #### L 501.5200, L500.4100, L100.0100, L501.9520, L506.0400, L501.9910, L500.4050, L506.1000 #### [facility] [address] [place], [address] Monocytes/100 WBC (Bld) 7.9 % Normal 0-10 [facility] Comment on above: Order Comment: Order Date: 05/22/23 Order Info: 07-1 - CMP Order Info: 63762-2 - LIPID Order Info: 93124-5 - MG Order Info: 3 - TSH Order Info: 2856-04 - PSA Order Info: 3024-7 - T4F Performed By: #### L 501.5200, L500.4100, L100.0100, L501.9520, L506.0400, L501.9910, L500.4050, L506.1000 #### [facility] [address] [place], [address] Neutrophils/100 WBC (Bld) 63.7 % Normal 47-70 [facility] Comment on above: Order Comment: Order Date: 05/22/23 Order Info: 785-04 - CMP Order Info: - LIPID Order Info: 56562-3 - MG Order Info: 3 - TSH Order Info: 2856-04 - PSA Order Info: 3024-7 - T4F Performed By: #### L 501.5200, L500.4100, L100.0100, L501.9520, L506.0400, L501.9910, L500.4050, L506.1000 #### [facility] [address] [place], [address] Nucleated RBC (Bld) [#/Vol] 0 10*3/uL Normal 0-5 [facility] Comment on above: Order Comment: Order Date: 05/22/23 Order Info: 785-04 - CMP Order Info: 06412-4 - LIPID Order Info: 46560-9 - MG Order Info: 3 - TSH Order Info: 28571 - PSA Order Info: 3024-7 - T4F Performed By: #### L 501.5200, L500.4100, L100.0100, L501.9520, L506.0400, L501.9910, L500.4050, L506.1000 #### [facility] [address] [place], [address] Platelet mean volume (Bld) [Entitic vol] 10.6 fL Normal 6.2-12.0 [facility] Comment on above: Order Comment: Order Date: 05/22/23 Order Info: 86-1 - CMP Order Info: 91425-4 - LIPID Order Info: 07290-0 - MG Order Info: 3015-3 - TSH Order Info: 2856-1 - PSA Order Info: 3024-7 - T4F Performed By: #### L 501.5200, L500.4100, L100.0100, L501.9520, L506.0400, L501.9910, L500.4050, L506.1000 #### [facility] [address] [place], [address] Platelets (Bld) [#/Vol] 189 10*3/uL Normal 150-450 [facility] Comment on above: Order Comment: Order Date: 05/22/23 Order Info: 785-1 - CMP Order Info: 05433-9 - LIPID Order Info: 71285-9 - MG Order Info: 3015-3 - TSH Order Info: 1 - PSA Order Info: 3023-7 - T4F Performed By: #### L 501.5200, L500.4100, L100.0100, L501.9520, L506.0400, L501.9910, L500.4050, L506.1000 #### [facility] [address] [place], [address] RBC (Bld) [#/Vol] 3.78 10*6/uL Low 4.6-6.2 [facility] Comment on above: Order Comment: Order Date: 05/22/23 Order Info: 785-1 - CMP Order Info: 26824-8 - LIPID Order Info: 13386-2 - MG Order Info: 301-3 - TSH Order Info: 2857-1 - PSA Order Info: 7 - T4F Performed By: #### L 501.5200, L500.4100, L100.0100, L501.9520, L506.0400, L501.9910, L500.4050, L506.1000 #### [facility] [address] [place], [address] RDW SD 48.9 fl High 35.1-43.9 [facility] Comment on above: Order Comment: Order Date: 05/22/23 Order Info: 07- - CMP Order Info: 07902-8 - LIPID Order Info: 22892-6 - MG Order Info: 3 - TSH Order Info: 2856-04 - PSA Order Info: 7 - T4F Performed By: #### L 501.5200, L500.4100, L100.0100, L501.9520, L506.0400, L501.9910, L500.4050, L506.1000 #### [facility] [address] [place], [address] WBC (Bld) [#/Vol] 6.2 10*3/uL Normal 4.4-11.0 [facility] Comment on above: Order Comment: Order Date: 05/22/23 Order Info: 0786-1 - CMP Order Info: 23235-8 - LIPID Order Info: 05455-2 - MG Order Info: 3 - TSH Order Info: 2856-04 - PSA Order Info: 7 - T4F Performed By: #### L 501.5200, L500.4100, L100.0100, L501.9520, L506.0400, L501.9910, L500.4050, L506.1000 #### [facility] [address] [place], [place], [address] Comprehensive Metabolic Prof ilon 05-19-2024 Albumin [Mass/Vol] 3.9 g/dL Normal 3.2-5.0 [facility] Comment on above: Order Comment: Order Date: 05/22/23 Order Info: 86-1 - CMP Order Info: 29956-3 - LIPID Order Info: 89443-9 - MG Order Info: 3016-3 - TSH Order Info: 2857-1 - PSA Order Info: 3024-7 - T4F Performed By: #### L 501.5200, L500.4100, L100.0100, L501.9520, L506.0400, L501.9910, L500.4050, L506.1000 #### [facility] [address] [place], [address] Albumin/Globulin [Mass ratio] 1.0 {ratio} Normal 0.9-2.4 [facility] Comment on above: Order Comment: Order Date: 05/22/23 Order Info: 785-1 - CMP Order Info: 52612-1 - LIPID Order Info: 89716-3 - MG Order Info: 3 - TSH Order Info: 1 - PSA Order Info: 3023-7 - T4F Performed By: #### L 501.5200, L500.4100, L100.0100, L501.9520, L506.0400, L501.9910, L500.4050, L506.1000 #### [facility] [address] [place], [place], [id number] ALK P 229 U/L High 45-117 [facility] Comment on above: Order Comment: Order Date: 05/22/23 Order Info: 785-1 - CMP Order Info: 49516-8 - LIPID Order Info: 53499-2 - MG Order Info: 3015-3 - TSH Order Info: 2857-1 - PSA Order Info: 3024-7 - T4F Performed By: #### L 501.5200, L500.4100, L100.0100, L501.9520, L506.0400, L501.9910, L500.4050, L506.1000 #### [facility] [address] [place], [address] ALT [Catalytic activity/Vol] 40 U/L Normal 16-61 [facility] Comment on above: Order Comment: Order Date: 05/22/23 Order Info: 86-1 - CMP Order Info: 96321-7 - LIPID Order Info: 62558-7 - MG Order Info: 3 - TSH Order Info: 2856-04 - PSA Order Info: 3023-7 - T4F Performed By: #### L 501.5200, L500.4100, L100.0100, L501.9520, L506.0400, L501.9910, L500.4050, L506.1000 #### [facility] [address] [place], [address] AST [Catalytic activity/Vol] 43 U/L High 15-37 [facility] Comment on above: Order Comment: Order Date: 05/22/23 Order Info: 785-1 - CMP Order Info: 54174-9 - LIPID Order Info: 33457-1 - MG Order Info: 3015-06 - TSH Order Info: 2856-04 - PSA Order Info: 3023-10 - T4F Performed By: #### L 501.5200, L500.4100, L100.0100, L501.9520, L506.0400, L501.9910, L500.4050, L506.1000 #### [facility] [address] [place], [place], [address] Bilirubin [Mass/Vol] 0.60 mg/dL Normal 0.20-1.00 [facility] Comment on above: Order Comment: Order Date: 05/22/23 Order Info: 785-1 - CMP Order Info: 86394-0 - LIPID Order Info: 91167-2 - MG Order Info: 3015-3 - TSH Order Info: 2856-04 - PSA Order Info: 7 - T4F Result Comment: For patients on eltrombopag therapy, use of Dimension [place] TBIL is not recommended. Performed By: #### L 501.5200, L500.4100, L100.0100, L501.9520, L506.0400, L501.9910, L500.4050, L506.1000 #### [facility] [address] [place], [place], [phone] BUN/CRE 14.3 RATIO Normal 10-20 [facility] Comment on above: Order Comment: Order Date: 05/22/23 Order Info: 0786-1 - CMP Order Info: 78633-7 - LIPID Order Info: 02194-9 - MG Order Info: 3016-3 - TSH Order Info: 2857-1 - PSA Order Info: 3024-7 - T4F Performed By: #### L 501.5200, L500.4100, L100.0100, L501.9520, L506.0400, L501.9910, L500.4050, L506.1000 #### [facility] [address] [place], [place], [phone] (400) CA,Total 9.2 mg/dL Normal 8.5-10.1 [facility] Comment on above: Order Comment: Order Date: 05/22/23 Order Info: 86-1 - CMP Order Info: 71860-2 - LIPID Order Info: 30332-5 - MG Order Info: 3016-3 - TSH Order Info: 2856-1 - PSA Order Info: 3024-7 - T4F Performed By: #### L 501.5200, L500.4100, L100.0100, L501.9520, L506.0400, L501.9910, L500.4050, L506.1000 #### [facility] [address] [place], [address] Chloride [Moles/Vol] 107 mmol/L Normal 98-107 [facility] Comment on above: Order Comment: Order Date: 05/22/23 Order Info: 0786-1 - CMP Order Info: 47030-1 - LIPID Order Info: 27499-8 - MG Order Info: 3016-3 - TSH Order Info: 2857-1 - PSA Order Info: 3024-7 - T4F Performed By: #### L 501.5200, L500.4100, L100.0100, L501.9520, L506.0400, L501.9910, L500.4050, L506.1000 #### [facility] [address] [place], [place], [id number] CO2 [Moles/Vol] 24.0 mmol/L Normal 21.0-32.0 [facility] Comment on above: Order Comment: Order Date: 05/22/23 Order Info: 0786-1 - CMP Order Info: 76841-2 - LIPID Order Info: 49577-6 - MG Order Info: 3016-3 - TSH Order Info: 2857-1 - PSA Order Info: 7 - T4F Performed By: #### L 501.5200, L500.4100, L100.0100, L501.9520, L506.0400, L501.9910, L500.4050, L506.1000 #### [facility] [address] [place], [place], [id number] Creatinine [Mass/Vol] 1.47 mg/dL High 0.70-1.30 [facility] Comment on above: Order Comment: Order Date: 05/22/23 Order Info: 785-1 - CMP Order Info: 54711-0 - LIPID Order Info: 24194-4 - MG Order Info: 3015-3 - TSH Order Info: 2856-1 - PSA Order Info: 3027 - T4F Result Comment: The validity of the calculated GFR GFRAA in patients over 70 years has not been determined. Clinical correlation is essential. Performed By: #### L 501.5200, L500.4100, L100.0100, L501.9520, L506.0400, L501.9910, L500.4050, L506.1000 #### [facility] [address] [place], [place], [id number] EST GFR - AA 61 mL/min Normal >60 [facility] Comment on above: Order Comment: Order Date: 05/22/23 Order Info: 0786-1 - CMP Order Info: 11296-1 - LIPID Order Info: 49968-8 - MG Order Info: 3 - TSH Order Info: 2856-04 - PSA Order Info: 7 - T4F Result Comment: Afri can Syrian GFR Calc Performed By: #### L 501.5200, L500.4100, L100.0100, L501.9520, L506.0400, L501.9910, L500.4050, L506.1000 #### [facility] [address] [place], [address] GAP 12 Normal 5-15 [facility] Comment on above: Order Comment: Order Date: 05/22/23 Order Info: 07 - CMP Order Info: - LIPID Order Info: 77723-1 - MG Order Info: 3 - TSH Order Info: 1 - PSA Order Info: 7 - T4F Performed By: #### L 501.5200, L500.4100, L100.0100, L501.9520, L506.0400, L501.9910, L500.4050, L506.1000 #### [facility] [address] [place], [place], [id number] (603) GFR/1.73 sq M.predicted among non-blacks MDRD (S/P/Bld) [Vol rate/Area] 50 mL/min/{1.73_m2} Low >60 [facility] Comment on above: Order Comment: Order Date: 05/22/23 Order Info: 07 - CMP Order Info: - LIPID Order Info: 98893-8 - MG Order Info: 3 - TSH Order Info: 1 - PSA Order Info: 302-7 - T4F Result Comment: Non- GFR Calc Performed By: #### L 501.5200, L500.4100, L100.0100, L501.9520, L506.0400, L501.9910, L500.4050, L506.1000 #### [facility] [address] [place], [place], [phone] (992) Globulin (S) [Mass/Vol] 3.8 g/dL Normal 2.2-4.2 [facility] Comment on above: Order Comment: Order Date: 05/22/23 Order Info: 785-1 - CMP Order Info: [id number] - LIPID Order Info: 43644-4 - MG Order Info: 3015-3 - TSH Order Info: 2856-04 - PSA Order Info: 7 - T4F Performed By: #### L 501.5200, L500.4100, L100.0100, L501.9520, L506.0400, L501.9910, L500.4050, L506.1000 #### [facility] [address] [place], [address] Glucose [Mass/Vol] 105 mg/dL Normal 74-106 [facility] Comment on above: Order Comment: Order Date: 05/22/23 Order Info: 785-04 - CMP Order Info: - LIPID Order Info: [id number] - MG Order Info: 3 - TSH Order Info: 2856-04 - PSA Order Info: 3023-10 - T4F Result Comment: Fast ing Glucose result from 100 to 125 mg/dL suggests IMPAIRED HOMEOSTASIS per A.D.A. criteria. Performed By: #### L 501.5200, L500.4100, L100.0100, L501.9520, L506.0400, L501.9910, L500.4050, L506.1000 #### [facility] [address] [place], [place], [id number] Potassium [Moles/Vol] 3.4 mmol/L Low 3.5-5.1 [facility] Comment on above: Order Comment: Order Date: 05/22/23 Order Info: 785-1 - CMP Order Info: 85913-9 - LIPID Order Info: 49764-4 - MG Order Info: 3 - TSH Order Info: 2856-04 - PSA Order Info: 7 - T4F Performed By: #### L 501.5200, L500.4100, L100.0100, L501.9520, L506.0400, L501.9910, L500.4050, L506.1000 #### [facility] [address] [place], [address] Sodium [Moles/Vol] 143 mmol/L Normal 136-145 [facility] Comment on above: Order Comment: Order Date: 05/22/23 Order Info: 0786-1 - CMP Order Info: 04726-2 - LIPID Order Info: 60764-9 - MG Order Info: 3016-3 - TSH Order Info: 2857-1 - PSA Order Info: 3024-7 - T4F Performed By: #### L 501.5200, L500.4100, L100.0100, L501.9520, L506.0400, L501.9910, L500.4050, L506.1000 #### [facility] [address] [place], [address] T PROT 7.7 g/dL Normal 6.4-8.2 [facility] Comment on above: Order Comment: Order Date: 05/22/23 Order Info: 86-1 - CMP Order Info: 83272-3 - LIPID Order Info: 80595-8 - MG Order Info: 3016-3 - TSH Order Info: 7-1 - PSA Order Info: 3024-7 - T4F Performed By: #### L 501.5200, L500.4100, L100.0100, L501.9520, L506.0400, L501.9910, L500.4050, L506.1000 #### [facility] [address] [place], [address] Urea nitrogen [Mass/Vol] 21 mg/dL High 7-18 [facility] Comment on above: Order Comment: Order Date: 05/22/23 Order Info: 0786-1 - CMP Order Info: 23671-2 - LIPID Order Info: 58981-6 - MG Order Info: 3016-3 - TSH Order Info: 2857-1 - PSA Order Info: 3024-7 - T4F Performed By: #### L 501.5200, L500.4100, L100.0100, L501.9520, L506.0400, L501.9910, L500.4050, L506.1000 #### [facility] [address] [place], [address] Lipid Profileon 05-19-2024 Cholesterol [Mass/Vol] 137 mg/dL Normal 200 [facility] Comment on above: Order Comment: Order Date: 05/22/23 Order Info: 0786-1 - CMP Order Info: 37538-3 - LIPID Order Info: 07635-4 - MG Order Info: 3 - TSH Order Info: 2856-04 - PSA Order Info: 3023-10 T4F Result Comment: <200 mg/dL Desirable 200-240 mg/dL Borderline >240 mg/dL High Risk Performed By: #### L 501.5200, L500.4100, L100.0100, L501.9520, L506.0400, L501.9910, L500.4050, L506.1000 #### [facility] [address] [place], [address] Cholesterol in HDL [Mass/Vol] 71 mg/dL Normal [facility] Comment on above: Order Comment: Order Date: 05/22/23 Order Info: 0786-1 - CMP Order Info: - LIPID Order Info: 08573-5 - MG Order Info: 3 - TSH Order Info: 2856-04 - PSA Order Info: 3023-10 - T4F Result Comment: The drugs N-Acetylcysteine and Metamizole may falsely depress this assay. Reference Range HDL <40 mg/dL Low HDL Cholesterol HDL >or= 60 mg/dL High HDL Cholesterol Performed By: #### L 501.5200, L500.4100, L100.0100, L501.9520, L506.0400, L501.9910, L500.4050, L506.1000 #### [facility] [address] [place], [address] Cholesterol in LDL [Mass/Vol] 32 mg/dL Normal 0-130 [facility] Comment on above: Order Comment: Order Date: 05/22/23 Order Info: 785-1 - CMP Order Info: 30945-5 - LIPID Order Info: 13567-2 - MG Order Info: 3015-06 - TSH Order Info: 2856-04 - PSA Order Info: 7 - T4F Performed By: #### L 501.5200, L500.4100, L100.0100, L501.9520, L506.0400, L501.9910, L500.4050, L506.1000 #### [facility] [address] [place], [address] Cholesterol in VLDL [Mass/Vol] 34 mg/dL Normal 5-40 [facility] Comment on above: Order Comment: Order Date: 05/22/23 Order Info: 785-04 - CMP Order Info: - LIPID Order Info: [id number] - MG Order Info: 3015-06 - TSH Order Info: 2856-04 - PSA Order Info: 3023-10 - T4F Performed By: #### L 501.5200, L500.4100, L100.0100, L501.9520, L506.0400, L501.9910, L500.4050, L506.1000 #### [facility] [address] [place], [address] Triglyceride [Mass/Vol] 169 mg/dL Normal [facility] Comment on above: Order Comment: Order Date: 05/22/23 Order Info: 785-04 - CMP Order Info: - LIPID Order Info: [id number] - MG Order Info: 3015-06 - TSH Order Info: 2856-04 - PSA Order Info: [id number] - T4F Result Comment: The drugs N-Acetylcysteine and Metamizole may falsely depress this assay. Serum Triglycerides Reference Interval Normal <150 mg/dL Borderline high 150 - 199 mg/dL High 200 - 499 mg/dL Very High > or = 500 mg/dL Performed By: #### L 501.5200, L500.4100, L100.0100, L501.9520, L506.0400, L501.9910, L500.4050, L506.1000 #### [facility] [address] [place], [address] Magnesiumon 05-19-2024 Magnesium [Mass/Vol] 2.1 mg/dL Normal 1.6-2.6 [facility] Comment on above: Order Comment: Order Date: 05/22/23 Order Info: [id number] - CMP Order Info: [id number] - LIPID Order Info: [id number] - MG Order Info: 3 - TSH Order Info: [id number] - PSA Order Info: 7 - T4F Performed By: #### L 501.5200, L500.4100, L100.0100, L501.9520, L506.0400, L501.9910, L500.4050, L506.1000 #### [facility] [address] [place], [address] PTHINon 05-19-2024 PTH 38.1 pg/mL Normal 18.4-80.1 [facility] Comment on above: Order Comment: Order Date: 05/22/23 Order Info: 0786- - CMP Order Info: [id number] - LIPID Order Info: [id number] - MG Order Info: 3 - TSH Order Info: 2856-04 - PSA Order Info: 7 - T4F Performed By: #### L 501.5200, L500.4100, L100.0100, L501.9520, L506.0400, L501.9910, L500.4050, L506.1000 #### [facility] [address] [place], [address] Phosphoruson 05-19-2024 Phosphate [Mass/Vol] 3.0 mg/dL Normal 2.5-4.9 [facility] Comment on above: Order Comment: Order Date: 05/22/23 Order Info: 0786- - CMP Order Info: [id number] - LIPID Order Info: [id number] - MG Order Info: 3016-3 - TSH Order Info: 2857-1 - PSA Order Info: 3024-7 - T4F Performed By: #### L 501.5200, L500.4100, L100.0100, L501.9520, L506.0400, L501.9910, L500.4050, L506.1000 #### [facility] [address] [place], [address] Protein+Creatinine Ratio,Uri neon 05-19-2024 PROT:CRE RATIO 684 mg/g CRE High 0-200 [facility] Comment on above: Performed By: #### L 501.5200, L500.4100, L100.0100, L501.9520, L506.0400, L501.9910, L500.4050, L506.1000 #### [facility] [address] [place], [address] Protein (U) [Mass/Vol] 18.6 mg/dL High <11.9 [facility] Comment on above: Performed By: #### L 501.5200, L500.4100, L100.0100, L501.9520, L506.0400, L501.9910, L500.4050, L506.1000 #### [facility] [address] [place], [address] UR CREAT 27.20 mg/dL Normal NO RANGE EST. [facility] Comment on above: Performed By: #### L 501.5200, L500.4100, L100.0100, L501.9520, L506.0400, L501.9910, L500.4050, L506.1000 #### [facility] [address] [place], [address] T4 Free Directon 05-19-2024 T4 FREE DIRECT 1.23 ng/dL Normal 0.76-1.46 [facility] Comment on above: Order Comment: Order Date: 05/22/23 Order Info: 86-1 - CMP Order Info: [id number] - LIPID Order Info: [id number] - MG Order Info: 3015-06 - TSH Order Info: 2856-04 - PSA Order Info: 302-7 - T4F Performed By: #### L 501.5200, L500.4100, L100.0100, L501.9520, L506.0400, L501.9910, L500.4050, L506.1000 #### [facility] [address] [place], [address] Thyroid Stim Hormone (TSH)on 05-19-2024 TSH 2.820 uIU/mL Normal 0.358-3.740 [facility] Comment on above: Order Comment: Order Date: 05/22/23 Order Info: 785-04 - CMP Order Info: - LIPID Order Info: [id number] - MG Order Info: 3015-06 - TSH Order Info: 2856-04 - PSA Order Info: 3023-10 - T4F Performed By: #### L 501.5200, L500.4100, L100.0100, L501.9520, L506.0400, L501.9910, L500.4050, L506.1000 #### [facility] [address] [place], [address] Vitamin D,25 Hydroxyon 05-19 Vitamin D 25-OH 50.6 ng/mL Normal [facility] Comment on above: Order Comment: Order Date: 05/22/23 Order Info: 785- - CMP Order Info: [id number] - LIPID Order Info: [id number] - MG Order Info: 3 - TSH Order Info: 2856-04 - PSA Order Info: 3024-7 - T4F Result Comment: Lela min D 25(OH) Status Range Deficiency <20 ng/mL (50nmol/L) Insufficiency 20 - 30 ng/mL (50 - 75 nmol/L) Sufficiency 30 - 100 ng/mL (75 - 250 nmol/L) Toxicity >100 ng/mL (>250 nmol/L) Performed By: #### L 501.5200, L500.4100, L100.0100, L501.9520, L506.0400, L501.9910, L500.4050, L506.1000 #### [facility] [address] [place], [address] ABD Limited w/ Elastographyo n 03-17-2024 ABD Limited w/ Elastography [facility] Imaging Services [address] [place] [address] ABD Limited w/ Elastography MR#: [id number] Acct: [id number] Name: ZENIA JC Rep #: [id number] : 1955 M 69 From: Best rowe MD PCP: Dr. Getachew Nicholas MD Status: [facility] Study: ABD Limited w/ Elastography Date of Exam: 03/08 Exam# [id number] Ordering Dr: Getachew Nicholas MD [id number] STUDY: ABDOMINAL ULTRASOUND - RIGHT UPPER QUADRANT; ELASTOGRAPHY REASON FOR VISIT: Male, 69 years old. Abnormal serum levels. TECHNIQUE: Ultrasound evaluation of the right upper quadrant was performed with real-time and static horvath-scale imaging. Point quantification shear wave elastography was performed ([employer]). TECHNICAL QUALITY: Adequate. COMPARISON: Comparison is made with prior study dated May 30, 2022. FINDINGS: Liver: The liver is enlarged and measures 20.8 cm. There is a heterogeneous echogenicity of the liver. The bile ducts are within normal limits. There is hepatic color flow. The direction of portal flow is hepatopetal. There is no demonstrated mass lesion. Median liver stiffness measured 11.5 kPa. Gallbladder: Normal distended gallbladder. The gallbladder wall measures 1 mm. There is a negative sonographic Villarreal''s sign. There is no pericholecystic fluid. There are no gallstones. Common Bile Duct (C.B.D.): The common bile duct measures 3 mm. Pancreas: There is normal echogenicity of the visualized pancreas. There is no demonstrated pancreatic mass or cyst. Right Kidney: Normal size of the right kidney. The right kidney measures 11 cm x 5.6 cm x 5.3 cm. Normal renal cortex. The right cortex measures 1.6 cm. There is no demonstrated renal mass or cyst. There is no right hydronephrosis. There is a 5 mm x 2 mm x 7 mm nonobstructive left renal calculus. US/ABD Limited w/ Elastography IMPRESSION: 1. Liver stiffness measures 11.5 kPa compatible with F2-F3 (Mild to moderate liver fibrosis) Metavir score. 2. Enlarged fatty infiltration of the liver. 3. Small nonobstructive right intrarenal calculus. Electronically Signed: Best Ahn MD at 12:13 [facility] Reading Location ID and State: [address] [place] [address] , Service support , CC: Dr. Getachew Nicholas MD [employer] Desktop Support: Signed Normal [facility] L501.5101on 01-17-2024 GGTP 1084 IU/L Abnormal 0-65 [facility] Comment on above: Order Comment: Order Date: 05/22/23 Order Info: [id number] - VITD25 Result Comment: Perf ormed at: [place] - [facility] [address] [id number] Blog Writer: Jez Whipple PhD, Phone: [phone] Performed By: #### L 501.5200, L500.4100, L100.0100, L501.9520, L506.0400, L501.9910, L500.4050, L506.1000 #### [facility] [address] [place], [place], [address] CBC W/Diff, Automatedon 10 Absolute Lymph 1.54 X10 3/uL Normal 0.83-4.51 [facility] Comment on above: Order Comment: Order Date: 05/22/23 Order Info: 86-1 - CMP Order Info: [id number] - LIPID Order Info: [id number] - MG Order Info: 3 - TSH Order Info: 1 - PSA Order Info: 302-7 - T4F Performed By: #### L 501.5200, L500.4100, L100.0100, L501.9520, L506.0400, L501.9910, L500.4050, L506.1000 #### [facility] [address] [place], [address] Absolute Neut 4.1 X10 3/uL Normal 2.0-7.7 [facility] Comment on above: Order Comment: Order Date: 05/22/23 Order Info: 785- - CMP Order Info: - LIPID Order Info: [id number] - MG Order Info: 3 - TSH Order Info: 2856-04 - PSA Order Info: 7 - T4F Performed By: #### L 501.5200, L500.4100, L100.0100, L501.9520, L506.0400, L501.9910, L500.4050, L506.1000 #### [facility] [address] [place], [place], [address] Basophils/100 WBC (Bld) 0.6 % Normal 0-1 [facility] Comment on above: Order Comment: Order Date: 05/22/23 Order Info: 785-1 - CMP Order Info: [id number] - LIPID Order Info: 62340-4 - MG Order Info: 3 - TSH Order Info: 2851 - PSA Order Info: 3024-7 - T4F Performed By: #### L 501.5200, L500.4100, L100.0100, L501.9520, L506.0400, L501.9910, L500.4050, L506.1000 #### [facility] [address] [place], [place], [address] Eosinophils/100 WBC (Bld) 1.9 % Normal 0-5 [facility] Comment on above: Order Comment: Order Date: 05/22/23 Order Info: 86-1 - CMP Order Info: [id number] - LIPID Order Info: [id number] - MG Order Info: 3 - TSH Order Info: 2856-04 - PSA Order Info: 3024-7 - T4F Performed By: #### L 501.5200, L500.4100, L100.0100, L501.9520, L506.0400, L501.9910, L500.4050, L506.1000 #### [facility] [address] [place], [place], [address] Erythrocyte distribution width (RBC) [Ratio] 13.3 % Normal 11.6-14.6 [facility] Comment on above: Order Comment: Order Date: 05/22/23 Order Info: 785-04 - CMP Order Info: - LIPID Order Info: [id number] - MG Order Info: 3 - TSH Order Info: 2856-04 - PSA Order Info: 302-7 - T4F Performed By: #### L 501.5200, L500.4100, L100.0100, L501.9520, L506.0400, L501.9910, L500.4050, L506.1000 #### [facility] [address] [place], [place], [address] Hematocrit (Bld) [Volume fraction] 39.5 % Low 40-54 [facility] Comment on above: Order Comment: Order Date: 05/22/23 Order Info: 785-1 - CMP Order Info: [id number] - LIPID Order Info: [id number] - MG Order Info: 3 - TSH Order Info: 2851 - PSA Order Info: 3024-7 - T4F Performed By: #### L 501.5200, L500.4100, L100.0100, L501.9520, L506.0400, L501.9910, L500.4050, L506.1000 #### [facility] [address] [place], [address] Hemoglobin (Bld) [Mass/Vol] 13.2 g/dL Normal 13.0-16.5 [facility] Comment on above: Order Comment: Order Date: 05/22/23 Order Info: 86-1 - CMP Order Info: 96816-5 - LIPID Order Info: [id number] - MG Order Info: 3015-3 - TSH Order Info: 2856-04 - PSA Order Info: 7 - T4F Performed By: #### L 501.5200, L500.4100, L100.0100, L501.9520, L506.0400, L501.9910, L500.4050, L506.1000 #### [facility] [address] [place], [address] IG% 0.300 Normal 0.0-0.9 [facility] Comment on above: Order Comment: Order Date: 05/22/23 Order Info: 785- - CMP Order Info: - LIPID Order Info: [id number] - MG Order Info: 3 - TSH Order Info: 1 - PSA Order Info: 3023-7 - T4F Result Comment: IG% - Immature Granulocytes (promyelocytes, myelocytes and metamyelocytes) > 1% indicates that a LEFT SHIFT is Present. Performed By: #### L 501.5200, L500.4100, L100.0100, L501.9520, L506.0400, L501.9910, L500.4050, L506.1000 #### [facility] [address] [place], [address] Lymphocytes/100 WBC (Bld) 24.6 % Normal 19-41 [facility] Comment on above: Order Comment: Order Date: 05/22/23 Order Info: 0786-1 - CMP Order Info: [id number] - LIPID Order Info: [id number] - MG Order Info: 3 - TSH Order Info: 1 - PSA Order Info: 3024-7 - T4F Performed By: #### L 501.5200, L500.4100, L100.0100, L501.9520, L506.0400, L501.9910, L500.4050, L506.1000 #### [facility] [address] [place], [address] MCH (RBC) [Entitic mass] 32.8 pg High 27.0-32.0 [facility] Comment on above: Order Comment: Order Date: 05/22/23 Order Info: 0786-1 - CMP Order Info: 19709-8 - LIPID Order Info: [id number] - MG Order Info: 3 - TSH Order Info: 2856-04 - PSA Order Info: 302-7 - T4F Performed By: #### L 501.5200, L500.4100, L100.0100, L501.9520, L506.0400, L501.9910, L500.4050, L506.1000 #### [facility] [address] [place], [address] MCHC (RBC) [Mass/Vol] 33.4 g/dL Normal 32-36 [facility] Comment on above: Order Comment: Order Date: 05/22/23 Order Info: 0786-1 - CMP Order Info: 60566-5 - LIPID Order Info: 73680-2 - MG Order Info: 3 - TSH Order Info: 2856-04 - PSA Order Info: 3024-7 - T4F Performed By: #### L 501.5200, L500.4100, L100.0100, L501.9520, L506.0400, L501.9910, L500.4050, L506.1000 #### [facility] [address] [place], [address] MCV (RBC) [Entitic vol] 98.0 fL High 80-94 [facility] Comment on above: Order Comment: Order Date: 05/22/23 Order Info: 785-1 - CMP Order Info: [id number] - LIPID Order Info: 01582-6 - MG Order Info: 3015-3 - TSH Order Info: 1 - PSA Order Info: 3024-7 - T4F Performed By: #### L 501.5200, L500.4100, L100.0100, L501.9520, L506.0400, L501.9910, L500.4050, L506.1000 #### [facility] [address] [place], [address] Monocytes/100 WBC (Bld) 7.2 % Normal 0-10 [facility] Comment on above: Order Comment: Order Date: 05/22/23 Order Info: 785- - CMP Order Info: - LIPID Order Info: [id number] - MG Order Info: 3 - TSH Order Info: 2856-04 - PSA Order Info: 3024-7 - T4F Performed By: #### L 501.5200, L500.4100, L100.0100, L501.9520, L506.0400, L501.9910, L500.4050, L506.1000 #### [facility] [address] [place], [address] Neutrophils/100 WBC (Bld) 65.4 % Normal 47-70 [facility] Comment on above: Order Comment: Order Date: 05/22/23 Order Info: 785- - CMP Order Info: [id number] - LIPID Order Info: 80169-5 - MG Order Info: 3 - TSH Order Info: 2856-1 - PSA Order Info: 3024-7 - T4F Performed By: #### L 501.5200, L500.4100, L100.0100, L501.9520, L506.0400, L501.9910, L500.4050, L506.1000 #### [facility] [address] [place], [address] Nucleated RBC (Bld) [#/Vol] 0 10*3/uL Normal 0-5 [facility] Comment on above: Order Comment: Order Date: 05/22/23 Order Info: 785- - CMP Order Info: - LIPID Order Info: [id number] - MG Order Info: 3015-06 - TSH Order Info: 2856-04 - PSA Order Info: 7 - T4F Performed By: #### L 501.5200, L500.4100, L100.0100, L501.9520, L506.0400, L501.9910, L500.4050, L506.1000 #### [facility] [address] [place], [place], [address] Platelet mean volume (Bld) [Entitic vol] 10.7 fL Normal 6.2-12.0 [facility] Comment on above: Order Comment: Order Date: 05/22/23 Order Info: 785-04 - CMP Order Info: - LIPID Order Info: [id number] - MG Order Info: 3015-06 - TSH Order Info: 2856-04 - PSA Order Info: 3023-10 - T4F Performed By: #### L 501.5200, L500.4100, L100.0100, L501.9520, L506.0400, L501.9910, L500.4050, L506.1000 #### [facility] [address] [place], [place], [address] [phone] Platelets (Bld) [#/Vol] 211 10*3/uL Normal 150-450 [facility] Comment on above: Order Comment: Order Date: 05/22/23 Order Info: 785-04 - CMP Order Info: - LIPID Order Info: [id number] - MG Order Info: 3015-06 - TSH Order Info: 2856-04 - PSA Order Info: 3024-7 - T4F Performed By: #### L 501.5200, L500.4100, L100.0100, L501.9520, L506.0400, L501.9910, L500.4050, L506.1000 #### [facility] [address] [place], [address] RBC (Bld) [#/Vol] 4.03 10*6/uL Low 4.6-6.2 [facility] Comment on above: Order Comment: Order Date: 05/22/23 Order Info: 0786-1 - CMP Order Info: [id number] - LIPID Order Info: 25950-2 - MG Order Info: 3016-3 - TSH Order Info: 2857-1 - PSA Order Info: 3024-7 - T4F Performed By: #### L 501.5200, L500.4100, L100.0100, L501.9520, L506.0400, L501.9910, L500.4050, L506.1000 #### [facility] [address] [place], [address] RDW SD 48.1 fl High 35.1-43.9 [facility] Comment on above: Order Comment: Order Date: 05/22/23 Order Info: 86-1 - CMP Order Info: 43840-2 - LIPID Order Info: 28283-5 - MG Order Info: 3016-3 - TSH Order Info: 2857-1 - PSA Order Info: 3024-7 - T4F Performed By: #### L 501.5200, L500.4100, L100.0100, L501.9520, L506.0400, L501.9910, L500.4050, L506.1000 #### [facility] [address] [place], [address] WBC (Bld) [#/Vol] 6.3 10*3/uL Normal 4.4-11.0 [facility] Comment on above: Order Comment: Order Date: 05/22/23 Order Info: 0786-1 - CMP Order Info: [id number] - LIPID Order Info: [id number] - MG Order Info: 3016-3 - TSH Order Info: 2857-1 - PSA Order Info: 3024-7 - T4F Performed By: #### L 501.5200, L500.4100, L100.0100, L501.9520, L506.0400, L501.9910, L500.4050, L506.1000 #### [facility] [address] [place], [place], [address] Comprehensive Metabolic Prof ilon 01-15-2024 Albumin [Mass/Vol] 4.4 g/dL Normal 3.2-5.0 [facility] Comment on above: Order Comment: Order Date: 05/22/23 Order Info: 0786-1 - CMP Order Info: 57900-5 - LIPID Order Info: 32417-2 - MG Order Info: 3015-3 - TSH Order Info: 1 - PSA Order Info: 3023-7 - T4F Performed By: #### L 501.5200, L500.4100, L100.0100, L501.9520, L506.0400, L501.9910, L500.4050, L506.1000 #### [facility] [address] [place], [address] Albumin/Globulin [Mass ratio] 1.4 {ratio} Normal 0.9-2.4 [facility] Comment on above: Order Comment: Order Date: 05/22/23 Order Info: 0786-1 - CMP Order Info: [id number] - LIPID Order Info: 30349-4 - MG Order Info: 3015-3 - TSH Order Info: 2856-1 - PSA Order Info: 3023-7 - T4F Performed By: #### L 501.5200, L500.4100, L100.0100, L501.9520, L506.0400, L501.9910, L500.4050, L506.1000 #### [facility] [address] [place], [place], [address] ALK P 232 U/L High 45-117 [facility] Comment on above: Order Comment: Order Date: 05/22/23 Order Info: 0786-1 - CMP Order Info: [id number] - LIPID Order Info: 79210-8 - MG Order Info: 3016-3 - TSH Order Info: 1 - PSA Order Info: 3024-7 - T4F Performed By: #### L 501.5200, L500.4100, L100.0100, L501.9520, L506.0400, L501.9910, L500.4050, L506.1000 #### [facility] [address] [place], [address] ALT [Catalytic activity/Vol] 40 U/L Normal 16-61 [facility] Comment on above: Order Comment: Order Date: 05/22/23 Order Info: 0786-1 - CMP Order Info: 19900-8 - LIPID Order Info: 15094-3 - MG Order Info: 3015-3 - TSH Order Info: 2856-04 - PSA Order Info: 3024-7 - T4F Performed By: #### L 501.5200, L500.4100, L100.0100, L501.9520, L506.0400, L501.9910, L500.4050, L506.1000 #### [facility] [address] [place], [place], [address] [phone] [Catalytic activity/Vol] 44 U/L High 15-37 [facility] Comment on above: Order Comment: Order Date: 05/22/23 Order Info: 07-1 - CMP Order Info: 22763-9 - LIPID Order Info: 92725-2 - MG Order Info: 3015-3 - TSH Order Info: 2856-04 - PSA Order Info: 3024-7 - T4F Performed By: #### L 501.5200, L500.4100, L100.0100, L501.9520, L506.0400, L501.9910, L500.4050, L506.1000 #### [facility] [address] [place], [address] Bilirubin [Mass/Vol] 0.80 mg/dL Normal 0.20-1.00 [facility] Comment on above: Order Comment: Order Date: 05/22/23 Order Info: 0786-1 - CMP Order Info: 01661-7 - LIPID Order Info: 78750-4 - MG Order Info: 3015-3 - TSH Order Info: 2856-04 - PSA Order Info: 302-7 - T4F Result Comment: For patients on eltrombopag therapy, use of Dimension [place] TBIL is not recommended. Performed By: #### L 501.5200, L500.4100, L100.0100, L501.9520, L506.0400, L501.9910, L500.4050, L506.1000 #### [facility] [address] [place], [place], [address] BUN/CRE 15.6 RATIO Normal 10-20 [facility] Comment on above: Order Comment: Order Date: 05/22/23 Order Info: 0786- - CMP Order Info: - LIPID Order Info: [id number] - MG Order Info: 3 - TSH Order Info: 2856-04 - PSA Order Info: 7 - T4F Performed By: #### L 501.5200, L500.4100, L100.0100, L501.9520, L506.0400, L501.9910, L500.4050, L506.1000 #### [facility] [address] [place], [place], [address] CA,Total 9.7 mg/dL Normal 8.5-10.1 [facility] Comment on above: Order Comment: Order Date: 05/22/23 Order Info: 0786-1 - CMP Order Info: 79800-9 - LIPID Order Info: 36634-7 - MG Order Info: 3015-3 - TSH Order Info: 1 - PSA Order Info: 3024-7 - T4F Performed By: #### L 501.5200, L500.4100, L100.0100, L501.9520, L506.0400, L501.9910, L500.4050, L506.1000 #### [facility] [address] [place], [place], [address] Chloride [Moles/Vol] 104 mmol/L Normal 98-107 [facility] Comment on above: Order Comment: Order Date: 05/22/23 Order Info: 86-1 - CMP Order Info: 06553-6 - LIPID Order Info: [id number] - MG Order Info: 3 - TSH Order Info: 2856-04 - PSA Order Info: 7 - T4F Performed By: #### L 501.5200, L500.4100, L100.0100, L501.9520, L506.0400, L501.9910, L500.4050, L506.1000 #### [facility] [address] [place], [address] CO2 [Moles/Vol] 24.0 mmol/L Normal 21.0-32.0 [facility] Comment on above: Order Comment: Order Date: 05/22/23 Order Info: 785-1 - CMP Order Info: 24484-7 - LIPID Order Info: 25179-5 - MG Order Info: 3 - TSH Order Info: 2856-04 - PSA Order Info: 3023-10 - T4F Performed By: #### L 501.5200, L500.4100, L100.0100, L501.9520, L506.0400, L501.9910, L500.4050, L506.1000 #### [facility] [address] [place], [place], [address] Creatinine [Mass/Vol] 1.22 mg/dL Normal 0.70-1.30 [facility] Comment on above: Order Comment: Order Date: 05/22/23 Order Info: 785-1 - CMP Order Info: [id number] - LIPID Order Info: 50986-5 - MG Order Info: 3 - TSH Order Info: 2851 - PSA Order Info: 3027 - T4F Result Comment: The validity of the calculated GFR GFRAA in patients over 70 years has not been determined. Clinical correlation is essential. Performed By: #### L 501.5200, L500.4100, L100.0100, L501.9520, L506.0400, L501.9910, L500.4050, L506.1000 #### [facility] [address] [place], [place], [address] EST GFR - AA 75 mL/min Normal >60 [facility] Comment on above: Order Comment: Order Date: 05/22/23 Order Info: 86-1 - CMP Order Info: [id number] - LIPID Order Info: [id number] - MG Order Info: 3016-3 - TSH Order Info: 2857-1 - PSA Order Info: 3024-7 - T4F Result Comment: Afri can Syrian GFR Calc Performed By: #### L 501.5200, L500.4100, L100.0100, L501.9520, L506.0400, L501.9910, L500.4050, L506.1000 #### [facility] [address] [place], [place], [phone] (144) GAP 13 Normal 5-15 [facility] Comment on above: Order Comment: Order Date: 05/22/23 Order Info: 785- - CMP Order Info: - LIPID Order Info: [id number] - MG Order Info: 3015-3 - TSH Order Info: 2857-1 - PSA Order Info: 3024-7 - T4F Performed By: #### L 501.5200, L500.4100, L100.0100, L501.9520, L506.0400, L501.9910, L500.4050, L506.1000 #### [facility] [address] [place], [place], [address] GFR/1.73 sq M.predicted among non-blacks MDRD (S/P/Bld) [Vol rate/Area] 62 mL/min/{1.73_m2} Normal >60 [facility] Comment on above: Order Comment: Order Date: 05/22/23 Order Info: 785-1 - CMP Order Info: 71440-5 - LIPID Order Info: [id number] - MG Order Info: 3016-3 - TSH Order Info: 2856-04 - PSA Order Info: 7 - T4F Result Comment: Non- GFR Calc Performed By: #### L 501.5200, L500.4100, L100.0100, L501.9520, L506.0400, L501.9910, L500.4050, L506.1000 #### [facility] [address] [place], [address] Globulin (S) [Mass/Vol] 3.2 g/dL Normal 2.2-4.2 [facility] Comment on above: Order Comment: Order Date: 05/22/23 Order Info: 785- - CMP Order Info: - LIPID Order Info: [id number] - MG Order Info: 3015-06 - TSH Order Info: 2856-04 - PSA Order Info: 3023-10 - T4F Performed By: #### L 501.5200, L500.4100, L100.0100, L501.9520, L506.0400, L501.9910, L500.4050, L506.1000 #### [facility] [address] [place], [address] Glucose [Mass/Vol] 110 mg/dL High 74-106 [facility] Comment on above: Order Comment: Order Date: 05/22/23 Order Info: [id number] - CMP Order Info: - LIPID Order Info: [id number] - MG Order Info: 3015-06 - TSH Order Info: 2856-04 - PSA Order Info: 7 - T4F Result Comment: Fast ing Glucose result from 100 to 125 mg/dL suggests IMPAIRED HOMEOSTASIS per A.D.A. criteria. Performed By: #### L 501.5200, L500.4100, L100.0100, L501.9520, L506.0400, L501.9910, L500.4050, L506.1000 #### [facility] [address] [place], [address] Potassium [Moles/Vol] 3.3 mmol/L Low 3.5-5.1 [facility] Comment on above: Order Comment: Order Date: 05/22/23 Order Info: 86-1 - CMP Order Info: [id number] - LIPID Order Info: [id number] - MG Order Info: 3015-3 - TSH Order Info: 285-1 - PSA Order Info: 3024-7 - T4F Performed By: #### L 501.5200, L500.4100, L100.0100, L501.9520, L506.0400, L501.9910, L500.4050, L506.1000 #### [facility] [address] [place], [place], [id number] Sodium [Moles/Vol] 141 mmol/L Normal 136-145 [facility] Comment on above: Order Comment: Order Date: 05/22/23 Order Info: 785-1 - CMP Order Info: [id number] - LIPID Order Info: [id number] - MG Order Info: 3 - TSH Order Info: 1 - PSA Order Info: 3024-7 - T4F Performed By: #### L 501.5200, L500.4100, L100.0100, L501.9520, L506.0400, L501.9910, L500.4050, L506.1000 #### [facility] [address] [place], [place], [id number] [phone] PROT 7.6 g/dL Normal 6.4-8.2 [facility] Comment on above: Order Comment: Order Date: 05/22/23 Order Info: 785-1 - CMP Order Info: [id number] - LIPID Order Info: [id number] - MG Order Info: 3015-3 - TSH Order Info: 2851 - PSA Order Info: 3024-7 - T4F Performed By: #### L 501.5200, L500.4100, L100.0100, L501.9520, L506.0400, L501.9910, L500.4050, L506.1000 #### [facility] [address] [place], [place], [address] Urea nitrogen [Mass/Vol] 19 mg/dL High 7-18 [facility] Comment on above: Order Comment: Order Date: 05/22/23 Order Info: 07-1 - CMP Order Info: [id number] - LIPID Order Info: [id number] - MG Order Info: 3016-3 - TSH Order Info: 2856-04 - PSA Order Info: 3024-7 - T4F Performed By: #### L 501.5200, L500.4100, L100.0100, L501.9520, L506.0400, L501.9910, L500.4050, L506.1000 #### [facility] [address] [place], [place], [address] Ferritinon 01-15-2024 Ferritin [Mass/Vol] 96 ng/mL Normal 26-388 [facility] Comment on above: Order Comment: Order Date: 05/22/23 Order Info: 785-04 - CMP Order Info: [id number] - LIPID Order Info: [id number] - MG Order Info: 3015-3 - TSH Order Info: 2856-04 - PSA Order Info: 3024-7 - T4F Performed By: #### L 501.5200, L500.4100, L100.0100, L501.9520, L506.0400, L501.9910, L500.4050, L506.1000 #### [facility] [address] [place], [address] Folates, (Folic Acid)on FOLATES 34.60 ng/mL Normal 3.1-55.4 [facility] Comment on above: Order Comment: Order Date: 05/22/23 Order Info: 07-1 - CMP Order Info: [id number] - LIPID Order Info: [id number] - MG Order Info: 3016-3 - TSH Order Info: 2851 - PSA Order Info: 3024-7 - T4F Performed By: #### L 501.5200, L500.4100, L100.0100, L501.9520, L506.0400, L501.9910, L500.4050, L506.1000 #### [facility] [address] [place], [place], [address] Ironon 01-15-2024 Iron [Mass/Vol] 111 ug/dL Normal 65-175 [facility] Comment on above: Order Comment: Order Date: 05/22/23 Order Info: 86-1 - CMP Order Info: [id number] - LIPID Order Info: [id number] - MG Order Info: 301-3 - TSH Order Info: 1 - PSA Order Info: 7 - T4F Performed By: #### L 501.5200, L500.4100, L100.0100, L501.9520, L506.0400, L501.9910, L500.4050, L506.1000 #### [facility] [address] [place], [address] Iron Binding Capacity,Totalo n 01-15-2024 TIBC 453 ug/dL High 250-450 [facility] Comment on above: Order Comment: Order Date: 05/22/23 Order Info: 785-1 - CMP Order Info: [id number] - LIPID Order Info: [id number] - MG Order Info: 3015-3 - TSH Order Info: 1 - PSA Order Info: 7 - T4F Performed By: #### L 501.5200, L500.4100, L100.0100, L501.9520, L506.0400, L501.9910, L500.4050, L506.1000 #### [facility] [address] [place], [address] Magnesiumon 01-15-2024 Magnesium [Mass/Vol] 2.1 mg/dL Normal 1.6-2.6 [facility] Comment on above: Order Comment: Order Date: 05/22/23 Order Info: 86-1 - CMP Order Info: [id number] - LIPID Order Info: [id number] - MG Order Info: 3 - TSH Order Info: 1 - PSA Order Info: 7 - T4F Performed By: #### L 501.5200, L500.4100, L100.0100, L501.9520, L506.0400, L501.9910, L500.4050, L506.1000 #### [facility] [address] [place], [address] PTHINon 01-15-2024 PTH 50.6 pg/mL Normal 18.4-80.1 [facility] Comment on above: Order Comment: Order Date: 05/22/23 Order Info: 785-04 - CMP Order Info: - LIPID Order Info: [id number] - MG Order Info: 3 - TSH Order Info: 2856-04 - PSA Order Info: 7 - T4F Performed By: #### L 501.5200, L500.4100, L100.0100, L501.9520, L506.0400, L501.9910, L500.4050, L506.1000 #### [facility] [address] [place], [address] Phosphoruson 01-15-2024 Phosphate [Mass/Vol] 2.8 mg/dL Normal 2.5-4.9 [facility] Comment on above: Order Comment: Order Date: 05/22/23 Order Info: 0786 - CMP Order Info: [id number] - LIPID Order Info: [id number] - MG Order Info: 3 - TSH Order Info: 1 - PSA Order Info: 7 - T4F Performed By: #### L 501.5200, L500.4100, L100.0100, L501.9520, L506.0400, L501.9910, L500.4050, L506.1000 #### [facility] [address] [place], [address] Protein+Creatinine Ratio,Uri neon 01-15-2024 PROT:CRE RATIO 1222 mg/g CRE High 0-200 [facility] Comment on above: Performed By: #### L 501.5200, L500.4100, L100.0100, L501.9520, L506.0400, L501.9910, L500.4050, L506.1000 #### [facility] [address] [place], [address] Protein (U) [Mass/Vol] 22.6 mg/dL High <11.9 [facility] Comment on above: Performed By: #### L 501.5200, L500.4100, L100.0100, L501.9520, L506.0400, L501.9910, L500.4050, L506.1000 #### [facility] [address] [place], [address] UR CREAT 18.50 mg/dL Normal NO RANGE EST. [facility] Comment on above: Performed By: #### L 501.5200, L500.4100, L100.0100, L501.9520, L506.0400, L501.9910, L500.4050, L506.1000 #### [facility] [address] [place], [address] T4 Free Directon 01-15-2024 T4 FREE DIRECT 1.27 ng/dL Normal 0.76-1.46 [facility] Comment on above: Order Comment: Order Date: 05/22/23 Order Info: 0786-1 - CMP Order Info: [id number] - LIPID Order Info: [id number] - MG Order Info: 3016-3 - TSH Order Info: 2857-1 - PSA Order Info: 3024-7 - T4F Performed By: #### L 501.5200, L500.4100, L100.0100, L501.9520, L506.0400, L501.9910, L500.4050, L506.1000 #### [facility] [address] [place], [address] Thyroid Stim Hormone (TSH)on 01-15-2024 TSH 3.360 uIU/mL Normal 0.358-3.740 [facility] Comment on above: Order Comment: Order Date: 05/22/23 Order Info: 0786-1 - CMP Order Info: [id number] - LIPID Order Info: [id number] - MG Order Info: 3016-3 - TSH Order Info: 2857-1 - PSA Order Info: 3024-7 - T4F Performed By: #### L 501.5200, L500.4100, L100.0100, L501.9520, L506.0400, L501.9910, L500.4050, L506.1000 #### [facility] [address] [place], [address] Urinalysis, Completeon 01-14 RBC 0-5 SEEN Normal 0-5 [facility] Comment on above: Order Comment: Order Date: 05/22/23 Order Info: [id number] - VITD25 Performed By: #### L 501.5200, L500.4100, L100.0100, L501.9520, L506.0400, L501.9910, L500.4050, L506.1000 #### [facility] [address] [place], [address] BACTERIA 0 SEEN Normal None Seen [facility] Comment on above: Order Comment: Order Date: 05/22/23 Order Info: [id number] - VITD25 Performed By: #### L 501.5200, L500.4100, L100.0100, L501.9520, L506.0400, L501.9910, L500.4050, L506.1000 #### [facility] [address] [place], [address] EPI,SQUAMOUS 0 SEEN Normal 0-5 [facility] Comment on above: Order Comment: Order Date: 05/22/23 Order Info: [id number] - VITD25 Performed By: #### L 501.5200, L500.4100, L100.0100, L501.9520, L506.0400, L501.9910, L500.4050, L506.1000 #### [facility] [address] [place], [address] Mucus Ql (Urine sed) 0 SEEN Normal [facility] Comment on above: Order Comment: Order Date: 05/22/23 Order Info: [id number] - VITD25 Performed By: #### L 501.5200, L500.4100, L100.0100, L501.9520, L506.0400, L501.9910, L500.4050, L506.1000 #### [facility] [address] [place], [address] WBC 0 SEEN Normal 0-5 [facility] Comment on above: Order Comment: Order Date: 05/22/23 Order Info: [id number] - VITD25 Performed By: #### L 501.5200, L500.4100, L100.0100, L501.9520, L506.0400, L501.9910, L500.4050, L506.1000 #### [facility] [address] [place], [address] Vitamin B12on 01-15-2024 Cobalamin (Vitamin B12) [Mass/Vol] 469 pg/mL Normal 211-911 [facility] Comment on above: Order Comment: Order Date: 05/22/23 Order Info: 0786-1 - CMP Order Info: [id number] - LIPID Order Info: [id number] - MG Order Info: 3016-3 - TSH Order Info: 2857-1 - PSA Order Info: 3024-7 - T4F Performed By: #### L 501.5200, L500.4100, L100.0100, L501.9520, L506.0400, L501.9910, L500.4050, L506.1000 #### [facility] [address] [place], [address] Vitamin D,25 Hydroxyon 01-14 Vitamin D 25-OH 57.5 ng/mL Normal [facility] Comment on above: Order Comment: Order Date: 05/22/23 Order Info: 0786-1 - CMP Order Info: [id number] - LIPID Order Info: [id number] - MG Order Info: 3016-3 - TSH Order Info: 2857-1 - PSA Order Info: 3024-7 - T4F Result Comment: Lela min D 25(OH) Status Range Deficiency <20 ng/mL (50nmol/L) Insufficiency 20 - 30 ng/mL (50 - 75 nmol/L) Sufficiency 30 - 100 ng/mL (75 - 250 nmol/L) Toxicity >100 ng/mL (>250 nmol/L) Performed By: #### L 501.5200, L500.4100, L100.0100, L501.9520, L506.0400, L501.9910, L500.4050, L506.1000 #### [facility] [address] [place], [address] Pulmonary Visit Reporton Pulmonary Visit Report [facility] [address] [place] [address] OFFICE VISIT Date of Service: 01/14/24 MR#: [id number] Acct: [id number] Name: ZENIA JC Rep #: [id number] : 1955 Provider: THAIS Oliveros Age/Sex: 68/M Location: [facility] Status: Signed Assessment and Plan Assessment and Plan (1) NANETTE (obstructive sleep apnea): Status: Chronic Plan: Stable, he is using and benefiting from Pap therapy. No indication for titration study at this time. Contact the office for any new or worsening symptoms in the meantime. Follow-up in 1 year. Plan Details Follow Up: 1 Year (CSM) HPI 1 Y FU Chief Complaint: Routine follow-up HPI Comments Details: This patient presents to the office today for follow-up of his obstructive sleep apnea. He is ambulatory and currently on room air. He has not recently been seen in the ED or urgent care for any respiratory illness. He has not required any antibiotics or prednisone for any breathing problems. He denies any difficulty with shortness of breath. He denies any cough, sputum production or hemoptysis. He denies any wheezing, chest tightness, chest pain or palpitations. He also denies any fever, chills or body aches. He wakes up feeling fairly rested. He has a couple episodes of nocturia nightly. He is not having difficulty with dry mouth or mask leaks. He denies difficulty with morning headaches. He is not requiring naps and is not nodding off to sleep unintentionally. Compliance report for the past 30 days shows 100% compliance with an average use of 8 hours and 40 minutes per night. Current setting is BiPAP 14/10 cm of water with a residual AHI of 0.3 events per hour. Leaks do not appear to be problematic. Intake Vital Signs 01/08/23 06:51 06/13/23 15:06 01/14/24 07:44 Height 5 ft 5 in 5 ft 5 in 5 ft 5 in Weight: 170 lb BMI 28.3 BP 190/92 H Blood Pressure Location Lt brachial Position Sitting Respiration 16 Pulse 97 Pulse Source Monitor Temp 96.8 F L Temperature Source Temporal Artery Pulse Oximetry (%) 97 Oxygen Delivery Method room air Intake Visit Reasons: 1 Y FU Chief Complaint: Follow up DME Vendor: [employer] Accompanied by: Self Allergies quinapril Allergy (Severe, Verified 01/14/24 11:22) angioedema, anaphylaxis DUDLEY Inhibitors Allergy (Verified 01/14/24 11:22) Angioedema ARB-Angiotensin Receptor Antagonist Allergy (Verified 01/14/24 11:22) Angioedema banana Allergy (Verified 01/14/24 11:22) Unknown metoprolol (From Toprol XL) Adverse Reaction (Verified 01/14/24 11:22) Nausea Medications ???Medication ???Instructions ???Recorded ???Confirmed ???Type apixaban 5 mg tablet 5 mg PO BID blood thinner 09/19/16 01/14/24 History aspirin 81 mg chewable tablet 81 mg PO DAILY heart health 09/19/16 01/14/24 History omeprazole 20 mg capsule,delayed 20 mg PO DAILY acid reflux 09/19/16 01/14/24 History release carvedilol 25 mg tablet 25 mg PO BID #60 tabs 09/22/18 01/14/24 Rx triamterene 37.5 1 tab PO DAILY blood pressure 11/04/18 01/14/24 History mg-hydrochlorothiazid e 25 mg tablet cholecalciferol (vitamin D3) 50 50 mcg PO DAILY 11/10/21 01/14/24 History mcg (2,000 unit) capsule dapagliflozin propanediol 10 mg 10 mg PO DAILY 01/08/23 01/14/24 History tablet (Farxiga) diltiazem HCl 360 mg capsule,24 360 mg PO DAILY 06/13/23 01/14/24 History hr,extended release (Tiadylt ER) levothyroxine 88 mcg tablet 88 mcg PO DAILY 06/13/23 01/14/24 History potassium gluconate 595 mg (99 mg) 595 mg PO DAILY 06/13/23 01/14/24 History tablet doxazosin 4 mg tablet 4 mg PO DAILY #90 tabs 06/26/23 01/14/24 Rx rosuvastatin 10 mg tablet 10 mg PO DAILY #90 tabs 08/09/23 01/14/24 Rx Have you fallen in the past year?: No PFSH Medical History Fatty liver Essential hypertension Longstanding persistent atrial fibrillation Anaphylactic reaction Tobacco dependence in remission Obstructive sleep apnea Secondary pulmonary arterial hypertension Hypothyroidism HLD (hyperlipidemia) Atrial fibrillation with RVR TIA (transient ischemic attack) Surgical History History of cardioversion (11/14/16) History of left heart catheterization (10/19/16) History of tonsillectomy Patent ductus arteriosus Family History Mother Hypertension Social History Smoking Status: Former smoker second hand exposure: Yes alcohol intake: current alcohol intake frequency: holidays/special occasions only Alcohol type: beer substance use type: does not use caffeine: Yes Type: c (more content not included)... Normal [facility] GGTPon 09-21-2023 GGTP 1732 U/L High [facility] Comment on above: Order Comment: Order Date: 05/22/23 Order Info: [id number] - VITD25 Performed By: #### L 501.5200, L500.4100, L100.0100, L501.9520, L506.0400, L501.9910, L500.4050, L506.1000 #### [facility] [address] [place], [address] CBC W/Diff, Automatedon 09-06-2023 Absolute Lymph 1.65 X10 3/uL Normal 0.83-4.51 [facility] Comment on above: Order Comment: Order Date: 05/22/23 Order Info: 0184-1 - CBCD Performed By: #### L 501.5200, L500.4100, L100.0100, L501.9520, L506.0400, L501.9910, L500.4050, L506.1000 #### [facility] [address] [place], [address] Absolute Neut 4.9 X10 3/uL Normal 2.0-7.7 [facility] Comment on above: Order Comment: Order Date: 05/22/23 Order Info: 0184- - CBCD Performed By: #### L 501.5200, L500.4100, L100.0100, L501.9520, L506.0400, L501.9910, L500.4050, L506.1000 #### [facility] [address] [place], [address] Basophils/100 WBC (Bld) 0.6 % Normal 0-1 [facility] Comment on above: Order Comment: Order Date: 05/22/23 Order Info: 0184-1 - CBCD Performed By: #### L 501.5200, L500.4100, L100.0100, L501.9520, L506.0400, L501.9910, L500.4050, L506.1000 #### [facility] [address] [place], [address] Eosinophils/100 WBC (Bld) 1.5 % Normal 0-5 [facility] Comment on above: Order Comment: Order Date: 05/22/23 Order Info: 018- - CBCD Performed By: #### L 501.5200, L500.4100, L100.0100, L501.9520, L506.0400, L501.9910, L500.4050, L506.1000 #### [facility] [address] [place], [address] Erythrocyte distribution width (RBC) [Ratio] 13.4 % Normal 11.6-14.6 [facility] Comment on above: Order Comment: Order Date: 05/22/23 Order Info: [id number] - CBCD Performed By: #### L 501.5200, L500.4100, L100.0100, L501.9520, L506.0400, L501.9910, L500.4050, L506.1000 #### [facility] [address] [place], [address] Hematocrit (Bld) [Volume fraction] 37.7 % Low 40-54 [facility] Comment on above: Order Comment: Order Date: 05/22/23 Order Info: 0184 - CBCD Performed By: #### L 501.5200, L500.4100, L100.0100, L501.9520, L506.0400, L501.9910, L500.4050, L506.1000 #### [facility] [address] [place], [address] Hemoglobin (Bld) [Mass/Vol] 12.7 g/dL Low 13.0-16.5 [facility] Comment on above: Order Comment: Order Date: 05/22/23 Order Info: 018- - CBCD Performed By: #### L 501.5200, L500.4100, L100.0100, L501.9520, L506.0400, L501.9910, L500.4050, L506.1000 #### [facility] [address] [place], [address] IG% 0.100 Normal 0.0-0.9 [facility] Comment on above: Order Comment: Order Date: 05/22/23 Order Info: 0184-1 - CBCD Result Comment: IG% - Immature Granulocytes (promyelocytes, myelocytes and metamyelocytes) > 1% indicates that a LEFT SHIFT is Present. Performed By: #### L 501.5200, L500.4100, L100.0100, L501.9520, L506.0400, L501.9910, L500.4050, L506.1000 #### [facility] [address] [place], [address] Lymphocytes/100 WBC (Bld) 22.8 % Normal 19-41 [facility] Comment on above: Order Comment: Order Date: 05/22/23 Order Info: 0184-1 - CBCD Performed By: #### L 501.5200, L500.4100, L100.0100, L501.9520, L506.0400, L501.9910, L500.4050, L506.1000 #### [facility] [address] [place], [address] MCH (RBC) [Entitic mass] 32.4 pg High 27.0-32.0 [facility] Comment on above: Order Comment: Order Date: 05/22/23 Order Info: 0184-1 - CBCD Performed By: #### L 501.5200, L500.4100, L100.0100, L501.9520, L506.0400, L501.9910, L500.4050, L506.1000 #### [facility] [address] [place], [address] MCHC (RBC) [Mass/Vol] 33.7 g/dL Normal 32-36 [facility] Comment on above: Order Comment: Order Date: 05/22/23 Order Info: [id number] - CBCD Performed By: #### L 501.5200, L500.4100, L100.0100, L501.9520, L506.0400, L501.9910, L500.4050, L506.1000 #### [facility] [address] [place], [address] MCV (RBC) [Entitic vol] 96.2 fL High 80-94 [facility] Comment on above: Order Comment: Order Date: 05/22/23 Order Info: 01807-07 - CBCD Performed By: #### L 501.5200, L500.4100, L100.0100, L501.9520, L506.0400, L501.9910, L500.4050, L506.1000 #### [facility] [address] [place], [address] Monocytes/100 WBC (Bld) 7.7 % Normal 0-10 [facility] Comment on above: Order Comment: Order Date: 05/22/23 Order Info: 01807-07 - CBCD Performed By: #### L 501.5200, L500.4100, L100.0100, L501.9520, L506.0400, L501.9910, L500.4050, L506.1000 #### [facility] [address] [place], [address] Neutrophils/100 WBC (Bld) 67.3 % Normal 47-70 [facility] Comment on above: Order Comment: Order Date: 05/22/23 Order Info: 01807-07 - CBCD Performed By: #### L 501.5200, L500.4100, L100.0100, L501.9520, L506.0400, L501.9910, L500.4050, L506.1000 #### [facility] [address] [place], [address] Nucleated RBC (Bld) [#/Vol] 0 10*3/uL Normal 0-5 [facility] Comment on above: Order Comment: Order Date: 05/22/23 Order Info: 0184-1 - CBCD Performed By: #### L 501.5200, L500.4100, L100.0100, L501.9520, L506.0400, L501.9910, L500.4050, L506.1000 #### [facility] [address] [place], [address] Platelet mean volume (Bld) [Entitic vol] 9.8 fL Normal 6.2-12.0 [facility] Comment on above: Order Comment: Order Date: 05/22/23 Order Info: 0184- - CBCD Performed By: #### L 501.5200, L500.4100, L100.0100, L501.9520, L506.0400, L501.9910, L500.4050, L506.1000 #### [facility] [address] [place], [address] Platelets (Bld) [#/Vol] 196 10*3/uL Normal 150-450 [facility] Comment on above: Order Comment: Order Date: 05/22/23 Order Info: 0184- - CBCD Performed By: #### L 501.5200, L500.4100, L100.0100, L501.9520, L506.0400, L501.9910, L500.4050, L506.1000 #### [facility] [address] [place], [address] RBC (Bld) [#/Vol] 3.92 10*6/uL Low 4.6-6.2 [facility] Comment on above: Order Comment: Order Date: 05/22/23 Order Info: 0184-1 - CBCD Performed By: #### L 501.5200, L500.4100, L100.0100, L501.9520, L506.0400, L501.9910, L500.4050, L506.1000 #### [facility] [address] [place], [place], [id number] [phone] RDW SD 47.7 fl High 35.1-43.9 [facility] Comment on above: Order Comment: Order Date: 05/22/23 Order Info: 0184-1 - CBCD Performed By: #### L 501.5200, L500.4100, L100.0100, L501.9520, L506.0400, L501.9910, L500.4050, L506.1000 #### [facility] [address] [place], [place], [address] WBC (Bld) [#/Vol] 7.2 10*3/uL Normal 4.4-11.0 [facility] Comment on above: Order Comment: Order Date: 05/22/23 Order Info: 0184- - CBCD Performed By: #### L 501.5200, L500.4100, L100.0100, L501.9520, L506.0400, L501.9910, L500.4050, L506.1000 #### [facility] [address] [place], [place], [address] Comprehensive Metabolic Prof [facility] 09-19-2023 Albumin [Mass/Vol] 4.2 g/dL Normal 3.2-5.0 [facility] Comment on above: Order Comment: Order Date: 05/22/23 Order Info: 0786-1 - CMP Order Info: [id number] - LIPID Order Info: [id number] - MG Order Info: 3016-3 - TSH Order Info: 2857-1 - PSA Order Info: 3024-7 - T4F Performed By: #### L 501.5200, L500.4100, L100.0100, L501.9520, L506.0400, L501.9910, L500.4050, L506.1000 #### [facility] [address] [place], [place], [address] [phone] Albumin/Globulin [Mass ratio] 1.4 {ratio} Normal 0.9-2.4 [facility] Comment on above: Order Comment: Order Date: 05/22/23 Order Info: 86-1 - CMP Order Info: [id number] - LIPID Order Info: [id number] - MG Order Info: 3015-3 - TSH Order Info: 2857-1 - PSA Order Info: 3024-7 - T4F Performed By: #### L 501.5200, L500.4100, L100.0100, L501.9520, L506.0400, L501.9910, L500.4050, L506.1000 #### [facility] [address] [place], [place], [address] ALK P 277 U/L High 45-117 [facility] Comment on above: Order Comment: Order Date: 05/22/23 Order Info: 785-1 - CMP Order Info: [id number] - LIPID Order Info: [id number] - MG Order Info: 3 - TSH Order Info: 2856-04 - PSA Order Info: 3024-7 - T4F Performed By: #### L 501.5200, L500.4100, L100.0100, L501.9520, L506.0400, L501.9910, L500.4050, L506.1000 #### [facility] [address] [place], [place], [address] ALT [Catalytic activity/Vol] 60 U/L Normal 16-61 [facility] Comment on above: Order Comment: Order Date: 05/22/23 Order Info: 86-1 - CMP Order Info: [id number] - LIPID Order Info: [id number] - MG Order Info: 3015-3 - TSH Order Info: 2857-1 - PSA Order Info: 3024-7 - T4F Performed By: #### L 501.5200, L500.4100, L100.0100, L501.9520, L506.0400, L501.9910, L500.4050, L506.1000 #### [facility] [address] [place], [address] AST [Catalytic activity/Vol] 72 U/L High 15-37 [facility] Comment on above: Order Comment: Order Date: 05/22/23 Order Info: 86-1 - CMP Order Info: [id number] - LIPID Order Info: [id number] - MG Order Info: 301-3 - TSH Order Info: 2856-04 - PSA Order Info: 7 - T4F Performed By: #### L 501.5200, L500.4100, L100.0100, L501.9520, L506.0400, L501.9910, L500.4050, L506.1000 #### [facility] [address] [place], [place], [id number] Bilirubin [Mass/Vol] 0.80 mg/dL Normal 0.20-1.00 [facility] Comment on above: Order Comment: Order Date: 05/22/23 Order Info: 785- - CMP Order Info: - LIPID Order Info: [id number] - MG Order Info: 3 - TSH Order Info: 2856-04 - PSA Order Info: 3023-10 - T4F Result Comment: For patients on eltrombopag therapy, use of Dimension [place] TBIL is not recommended. Performed By: #### L 501.5200, L500.4100, L100.0100, L501.9520, L506.0400, L501.9910, L500.4050, L506.1000 #### [facility] [address] [place], [address] BUN/CRE 12.9 RATIO Normal 10-20 [facility] Comment on above: Order Comment: Order Date: 05/22/23 Order Info: 785-1 - CMP Order Info: [id number] - LIPID Order Info: [id number] - MG Order Info: 3015-3 - TSH Order Info: 2856-04 - PSA Order Info: 7 - T4F Performed By: #### L 501.5200, L500.4100, L100.0100, L501.9520, L506.0400, L501.9910, L500.4050, L506.1000 #### [facility] [address] [place], [address] CA,Total 9.4 mg/dL Normal 8.5-10.1 [facility] Comment on above: Order Comment: Order Date: 05/22/23 Order Info: 0786-1 - CMP Order Info: [id number] - LIPID Order Info: [id number] - MG Order Info: 3015-3 - TSH Order Info: 2856-1 - PSA Order Info: 3023-7 - T4F Performed By: #### L 501.5200, L500.4100, L100.0100, L501.9520, L506.0400, L501.9910, L500.4050, L506.1000 #### [facility] [address] [place], [address] Chloride [Moles/Vol] 102 mmol/L Normal 98-107 [facility] Comment on above: Order Comment: Order Date: 05/22/23 Order Info: 86-1 - CMP Order Info: [id number] - LIPID Order Info: [id number] - MG Order Info: 3015-3 - TSH Order Info: 2856-04 - PSA Order Info: 3023-7 - T4F Performed By: #### L 501.5200, L500.4100, L100.0100, L501.9520, L506.0400, L501.9910, L500.4050, L506.1000 #### [facility] [address] [place], [address] CO2 [Moles/Vol] 27.0 mmol/L Normal 21.0-32.0 [facility] Comment on above: Order Comment: Order Date: 05/22/23 Order Info: 0786-1 - CMP Order Info: [id number] - LIPID Order Info: 14842-2 - MG Order Info: 3015-3 - TSH Order Info: 285-1 - PSA Order Info: 302-7 - T4F Performed By: #### L 501.5200, L500.4100, L100.0100, L501.9520, L506.0400, L501.9910, L500.4050, L506.1000 #### [facility] [address] [place], [address] Creatinine [Mass/Vol] 1.47 mg/dL High 0.70-1.30 [facility] Comment on above: Order Comment: Order Date: 05/22/23 Order Info: 0786 - CMP Order Info: - LIPID Order Info: [id number] - MG Order Info: 3015-06 - TSH Order Info: 2856-04 - PSA Order Info: 3023-10 T4F Result Comment: The validity of the calculated GFR GFRAA in patients over 70 years has not been determined. Clinical correlation is essential. Performed By: #### L 501.5200, L500.4100, L100.0100, L501.9520, L506.0400, L501.9910, L500.4050, L506.1000 #### [facility] [address] [place], [address] EST GFR - AA 61 mL/min Normal >60 [facility] Comment on above: Order Comment: Order Date: 05/22/23 Order Info: 0786- - CMP Order Info: [id number] - LIPID Order Info: 71984-1 - MG Order Info: 3015-06 - TSH Order Info: 2856-04 - PSA Order Info: 3023-10 T4F Result Comment: Afri can Syrian GFR Calc Performed By: #### L 501.5200, L500.4100, L100.0100, L501.9520, L506.0400, L501.9910, L500.4050, L506.1000 #### [facility] [address] [place], [address] GAP 8 Normal 5-15 [facility] Comment on above: Order Comment: Order Date: 05/22/23 Order Info: 07- - CMP Order Info: - LIPID Order Info: [id number] - MG Order Info: 3 - TSH Order Info: 2856-04 - PSA Order Info: 7 - T4F Performed By: #### L 501.5200, L500.4100, L100.0100, L501.9520, L506.0400, L501.9910, L500.4050, L506.1000 #### [facility] [address] [place], [place], [id number] [phone] GFR/1.73 sq M.predicted among non-blacks MDRD (S/P/Bld) [Vol rate/Area] 50 mL/min/{1.73_m2} Low >60 [facility] Comment on above: Order Comment: Order Date: 05/22/23 Order Info: 785-04 - CMP Order Info: - LIPID Order Info: [id number] - MG Order Info: 3015-06 - TSH Order Info: 2856-04 - PSA Order Info: 7 - T4F Result Comment: Non- GFR Calc Performed By: #### L 501.5200, L500.4100, L100.0100, L501.9520, L506.0400, L501.9910, L500.4050, L506.1000 #### [facility] [address] [place], [address] Globulin (S) [Mass/Vol] 3.1 g/dL Normal 2.2-4.2 [facility] Comment on above: Order Comment: Order Date: 05/22/23 Order Info: 785-04 - CMP Order Info: - LIPID Order Info: [id number] - MG Order Info: 3015-06 - TSH Order Info: 2856-04 - PSA Order Info: 7 - T4F Performed By: #### L 501.5200, L500.4100, L100.0100, L501.9520, L506.0400, L501.9910, L500.4050, L506.1000 #### [facility] [address] [place], [address] Glucose [Mass/Vol] 104 mg/dL Normal 74-106 [facility] Comment on above: Order Comment: Order Date: 05/22/23 Order Info: 0786-1 - CMP Order Info: [id number] - LIPID Order Info: [id number] - MG Order Info: 3016-3 - TSH Order Info: 285-1 - PSA Order Info: 3024-7 - T4F Result Comment: Fast ing Glucose result from 100 to 125 mg/dL suggests IMPAIRED HOMEOSTASIS per A.D.A. criteria. Performed By: #### L 501.5200, L500.4100, L100.0100, L501.9520, L506.0400, L501.9910, L500.4050, L506.1000 #### [facility] [address] [place], [address] Potassium [Moles/Vol] 3.3 mmol/L Low 3.5-5.1 [facility] Comment on above: Order Comment: Order Date: 05/22/23 Order Info: 0786-1 - CMP Order Info: [id number] - LIPID Order Info: [id number] - MG Order Info: 3015-3 - TSH Order Info: 2856-1 - PSA Order Info: 3024-7 - T4F Performed By: #### L 501.5200, L500.4100, L100.0100, L501.9520, L506.0400, L501.9910, L500.4050, L506.1000 #### [facility] [address] [place], [address] Sodium [Moles/Vol] 137 mmol/L Normal 136-145 [facility] Comment on above: Order Comment: Order Date: 05/22/23 Order Info: 0786-1 - CMP Order Info: 27472-0 - LIPID Order Info: [id number] - MG Order Info: 3016-3 - TSH Order Info: 2857-1 - PSA Order Info: 3024-7 - T4F Performed By: #### L 501.5200, L500.4100, L100.0100, L501.9520, L506.0400, L501.9910, L500.4050, L506.1000 #### [facility] [address] [place], [address] T PROT 7.3 g/dL Normal 6.4-8.2 [facility] Comment on above: Order Comment: Order Date: 05/22/23 Order Info: 86-1 - CMP Order Info: 16527-9 - LIPID Order Info: [id number] - MG Order Info: 301-3 - TSH Order Info: 285-1 - PSA Order Info: 3024-7 - T4F Performed By: #### L 501.5200, L500.4100, L100.0100, L501.9520, L506.0400, L501.9910, L500.4050, L506.1000 #### [facility] [address] [place], [address] Urea nitrogen [Mass/Vol] 19 mg/dL High 7-18 [facility] Comment on above: Order Comment: Order Date: 05/22/23 Order Info: 785-1 - CMP Order Info: [id number] - LIPID Order Info: 31674-7 - MG Order Info: 3015-3 - TSH Order Info: 2857-1 - PSA Order Info: 3024-7 - T4F Performed By: #### L 501.5200, L500.4100, L100.0100, L501.9520, L506.0400, L501.9910, L500.4050, L506.1000 #### [facility] [address] [place], [address] Lipid Profileon 09-19-2023 Cholesterol [Mass/Vol] 133 mg/dL Normal 200 [facility] Comment on above: Order Comment: Order Date: 05/22/23 Order Info: 0786-1 - CMP Order Info: [id number] - LIPID Order Info: [id number] - MG Order Info: 3016-3 - TSH Order Info: 2856-04 - PSA Order Info: 3023-10 - T4F Result Comment: <200 mg/dL Desirable 200-240 mg/dL Borderline >240 mg/dL High Risk Performed By: #### L 501.5200, L500.4100, L100.0100, L501.9520, L506.0400, L501.9910, L500.4050, L506.1000 #### [facility] [address] [place], [place], [id number] ([address]) Cholesterol in HDL [Mass/Vol] 57 mg/dL Normal [facility] Comment on above: Order Comment: Order Date: 05/22/23 Order Info: 0786- - CMP Order Info: [id number] - LIPID Order Info: [id number] - MG Order Info: 3015-06 - TSH Order Info: 2856-04 - PSA Order Info: 3023-10 T4F Result Comment: The drugs N-Acetylcysteine and Metamizole may falsely depress this assay. Reference Range HDL <40 mg/dL Low HDL Cholesterol HDL >or= 60 mg/dL High HDL Cholesterol Performed By: #### L 501.5200, L500.4100, L100.0100, L501.9520, L506.0400, L501.9910, L500.4050, L506.1000 #### [facility] [address] [place], [address] Cholesterol in LDL [Mass/Vol] 33 mg/dL Normal 0-130 [facility] Comment on above: Order Comment: Order Date: 05/22/23 Order Info: 0786- - CMP Order Info: [id number] - LIPID Order Info: [id number] - MG Order Info: 3 - TSH Order Info: 2856-04 - PSA Order Info: 3023-10 T4F Performed By: #### L 501.5200, L500.4100, L100.0100, L501.9520, L506.0400, L501.9910, L500.4050, L506.1000 #### [facility] [address] [place], [place], [address] Cholesterol in VLDL [Mass/Vol] 43 mg/dL High 5-40 [facility] Comment on above: Order Comment: Order Date: 05/22/23 Order Info: 0786-1 - CMP Order Info: 53560-0 - LIPID Order Info: [id number] - MG Order Info: 3015-3 - TSH Order Info: 2856-1 - PSA Order Info: 3023-7 - T4F Performed By: #### L 501.5200, L500.4100, L100.0100, L501.9520, L506.0400, L501.9910, L500.4050, L506.1000 #### [facility] [address] [place], [place], [address] Triglyceride [Mass/Vol] 213 mg/dL High [facility] Comment on above: Order Comment: Order Date: 05/22/23 Order Info: 785- - CMP Order Info: [id number] - LIPID Order Info: [id number] - MG Order Info: 3015-3 - TSH Order Info: 1 - PSA Order Info: 7 - T4F Result Comment: The drugs N-Acetylcysteine and Metamizole may falsely depress this assay. Serum Triglycerides Reference Interval Normal <150 mg/dL Borderline high 150 - 199 mg/dL High 200 - 499 mg/dL Very High > or = 500 mg/dL Performed By: #### L 501.5200, L500.4100, L100.0100, L501.9520, L506.0400, L501.9910, L500.4050, L506.1000 #### [facility] [address] [place], [place], [address] Magnesiumon 09-19-2023 Magnesium [Mass/Vol] 2.3 mg/dL Normal 1.6-2.6 [facility] Comment on above: Order Comment: Order Date: 05/22/23 Order Info: 0786-1 - CMP Order Info: 79563-8 - LIPID Order Info: [id number] - MG Order Info: 3016-3 - TSH Order Info: 2856-04 - PSA Order Info: 3023-10 - T4F Performed By: #### L 501.5200, L500.4100, L100.0100, L501.9520, L506.0400, L501.9910, L500.4050, L506.1000 #### [facility] [address] [place], [place], [address] [phone] PSA,Total - Annual Screenon 09-19-2023 PSA,TOT SCREEN 1.84 ng/mL Normal 0.00-4.00 [facility] Comment on above: Order Comment: Order Date: 05/22/23 Order Info: 0786-1 - CMP Order Info: [id number] - LIPID Order Info: [id number] - MG Order Info: 3 - TSH Order Info: 2856-04 - PSA Order Info: 3023-10 - T4F Result Comment: This test was performed using the TPSA assay method for the [employer] chemistry system. Values obtained with different assay methods cannot be used interchangably. When changing PSA assays in the course of monitoring a patient, additional sequential testing should be carried out to confirm baseline values. Performed By: #### L 501.5200, L500.4100, L100.0100, L501.9520, L506.0400, L501.9910, L500.4050, L506.1000 #### [facility] [address] [place], [place], [address] [phone] Free Directon 09-19-2023 T4 FREE DIRECT 1.24 ng/dL Normal 0.76-1.46 [facility] Comment on above: Order Comment: Order Date: 05/22/23 Order Info: 0786-1 - CMP Order Info: [id number] - LIPID Order Info: [id number] - MG Order Info: 3 - TSH Order Info: 2856-04 - PSA Order Info: 7 - T4F Performed By: #### L 501.5200, L500.4100, L100.0100, L501.9520, L506.0400, L501.9910, L500.4050, L506.1000 #### [facility] [address] [place], [address] Thyroid Stim Hormone (TSH)on 09-19-2023 TSH 2.03 uIU/mL Normal 0.358-3.74 [facility] Comment on above: Order Comment: Order Date: 05/22/23 Order Info: 0786-1 - CMP Order Info: [id number] - LIPID Order Info: [id number] - MG Order Info: 3016-3 - TSH Order Info: 2857-1 - PSA Order Info: 3024-7 - T4F Performed By: #### L 501.5200, L500.4100, L100.0100, L501.9520, L506.0400, L501.9910, L500.4050, L506.1000 #### [facility] [address] [place], [address] Vitamin D,25 Hydroxyon 09-18 Vitamin D 25-OH 46.0 ng/mL Normal [facility] Comment on above: Order Comment: Order Date: 05/22/23 Order Info: [id number] - VITD25 Result Comment: Lela min D 25(OH) Status Range Deficiency <20 ng/mL (50nmol/L) Insufficiency 20 - 30 ng/mL (50 - 75 nmol/L) Sufficiency 30 - 100 ng/mL (75 - 250 nmol/L) Toxicity >100 ng/mL (>250 nmol/L) Performed By: #### L 501.5200, L500.4100, L100.0100, L501.9520, L506.0400, L501.9910, L500.4050, L506.1000 #### [facility] [address] [place], [address] Absolute lymphocyte countOrd ered By: Getachew Nicholas on 05-20-2023 Lymphocytes Auto (Unsp spec) [#/Vol] 1.84 10*3/uL 0.83-4.51 [facility] Automated lymphocyte count a s percentage of total leukocytesOrdered By: Getachew Nicholas on 05-20-2023 Lymphocytes/100 WBC Auto (Unsp spec) 28.0 % 19-41 [facility] Basophil percentageOrdered B y: Getachew Bentonmaría on 05-20-2023 Basophil percentage 0 SEEN /hpf 0-5 [facility] Basophil percentage 3.3 mg/dL 2.5-4.9 [facility] Basophils/100 WBC (Bld) 0.6 % 0-1 [facility] Bilirubin [Mass/Vol] 0.60 mg/dL 0.20-1.00 [facility] Comment on above: For patients on eltr ombopag therapy, use of Dimension [place] TBIL is not recommended. Chloride [Moles/Vol] 109 mmol/L 98-107 [facility] Cholesterol [Mass/Vol] 147 mg/dL <200 [facility] Comment on above: <200 mg/dL Desirable 200-240 mg/dL Borderline >240 mg/dL High Risk Eosinophils/100 WBC (Bld) 1.7 % 0-5 [facility] Glucose [Mass/Vol] 113 mg/dL 74-106 [facility] Comment on above: Fasting Glucose resu lt from 100 to 125 mg/dL suggests IMPAIRED HOMEOSTASIS per A.D.A. criteria. Hemoglobin (Bld) [Mass/Vol] 13.5 g/dL 13.0-16.5 [facility] Monocytes/100 WBC (Bld) 7.9 % 0-10 [facility] Neutrophils (Bld) [#/Vol] 4.0 10*3/uL 2.0-7.7 [facility] Neutrophils/100 WBC (Bld) 61.5 % 47-70 [facility] Potassium [Moles/Vol] 4.1 mmol/L 3.5-5.1 [facility] Protein [Mass/Vol] 7.3 g/dL 6.4-8.2 [facility] Sodium [Moles/Vol] 142 mmol/L 136-145 [facility] Triglyceride [Mass/Vol] 145 mg/dL <199 [facility] Comment on above: The drugs N-Acetylcy steine and Metamizole may falsely depress this assay.Serum Triglycerides Reference Interval Normal <150 mg/dL Borderline high 150 - 199 mg/dL High 200 - 499 mg/dL Very High > or = 500 mg/dL WBC (Bld) [#/Vol] 6.6 10*3/uL 4.4-11.0 [facility] Bilirubin Test strip Ql (U)O rdered By: Getachew Nicholas on 05-20-2023 Bilirubin Ql (U) Negative Negative [facility] Determination of erythrocyte mean corpuscular volume (MCV)Ordered By: Getachew Nicholas on 05-20-2023 MCV (RBC) [Entitic vol] 100.5 fL 80-94 [facility] Erythrocyte distribution wid th ratioOrdered By: Getachew Nicholas on 05-20-2023 Erythrocyte distribution width (RBC) [Ratio] 13.3 % 11.6-14.6 [facility] Erythrocyte distribution wid th standard deviationOrdered By: Getachew Nicholas on 05-20-2023 Erythrocyte distribution width (RBC) [Entitic vol] 49.4 fL 35.1-43.9 [facility] Hematocrit Auto (Bld) [Volum e fraction]Ordered By: Getachew Nicholas on 05-20-2023 Hematocrit (Bld) [Volume fraction] 41.3 % 40-54 [facility] Immature granulocytes/100 WB C Auto (Bld)Ordered By: Getachew Nicholas on 05-20-2023 Immature granulocytes/100 WBC (Bld) 0.300 % 0.0-0.9 [facility] Comment on above: IG% - Immature Granu locytes (promyelocytes, myelocytes and metamyelocytes) > 1% indicates that a LEFT SHIFT is Present. Ketones Test strip Ql (U)Ord ered By: Getachew Nicholas on 05-20-2023 Ketones Ql (U) Negative Negative [facility] - Chemistry and C hemistry - challengeOrdered By: Getachew Nicholas on 05-20-2023 Albumin/Globulin [Mass ratio] 1.3 {ratio} 0.9-2.4 [facility] ALP [Catalytic activity/Vol] 211 U/L 45-117 [facility] ALT [Catalytic activity/Vol] 72 U/L 16-61 [facility] Cholesterol in HDL [Mass/Vol] 64 mg/dL >40 [facility] Comment on above: The drugs N-Acetylcy steine and Metamizole may falsely depress this assay. Reference Range HDL <40 mg/dL Low HDL Cholesterol HDL >or= 60 mg/dL High HDL Cholesterol Cholesterol in LDL [Mass/Vol] 54 mg/dL 0-130 [facility] CO2 [Moles/Vol] 25.0 mmol/L 21.0-32.0 [facility] Globulin (S) [Mass/Vol] 3.2 g/dL 2.2-4.2 [facility] Magnesium [Mass/Vol] 2.3 mg/dL 1.6-2.6 [facility] Urea nitrogen/Creatinine [Mass ratio] 16.1 mg/mg 10-20 [facility] - Hematology and Cell countsOrdered By: Getachew Nicholas on 05-20-2023 MCH (RBC) [Entitic mass] 32.8 pg 27.0-32.0 [facility] MCHC (RBC) [Mass/Vol] 32.7 g/dL 32-36 [facility] Nucleated RBC/100 WBC (Bld) [Ratio] 0 % 0-5 [facility] Platelet mean volume (Bld) [Entitic vol] 10.4 fL 6.2-12.0 [facility] Platelets (Bld) [#/Vol] 195 10*3/uL 150-450 [facility] Mucus LM Ql (Urine sed)Order ed By: Getachew Nicholas on 05-20-2023 Mucus Ql (Urine sed) 0 SEEN /hpf [facility] Nitrite Test strip Ql (U)Ord ered By: Getachew Nicholas on 05-20-2023 Nitrite Ql (U) Negative Negative [facility] No Panel InformationOrdered By: Getachew Nicholas on 05-20-2023 Urine RBC 0 SEEN /hpf 0-5 [facility] Estimated GFR (MDRD) Amer 55 mL/min >60 [facility] Comment on above: GFR Calc Estimated GFR (MDRD) Non-Af Amer 45 mL/min >60 [facility] Comment on above: Non- GFR Calc Vitamin D 25-Hydroxy 52.1 ng/mL [facility] Comment on above: Vitamin D 25(OH) Sta tus Range Deficiency <20 ng/mL (50nmol/L) Insufficiency 20 - 30 ng/mL (50 - 75 nmol/L) Sufficiency 30 - 100 ng/mL (75 - 250 nmol/L) Toxicity >100 ng/mL (>250 nmol/L) VLDL Cholesterol 29 mg/dL 5-40 [facility] Protein Test strip Ql (U)Ord ered By: Getachew Nicholas on 05-20-2023 Protein Ql (U) 15 mg/dl Negative [facility] RBC Auto (Bld) [#/Vol]Ordere d By: Getachew Nicholas on 05-20-2023 RBC (Bld) [#/Vol] 4.11 10*6/uL 4.6-6.2 [facility] Serum or plasma calcium nicol urement (mass/volume)Ordered By: Getachew Nicholas on 05-20-2023 Calcium [Mass/Vol] 9.2 mg/dL 8.5-10.1 [facility] Serum or plasma creatinine m easurement (mass/volume)Ordered By: Getachew Nicholas on 05-20-2023 Creatinine [Mass/Vol] 1.61 mg/dL 0.70-1.30 [facility] Comment on above: The validity of the calculated GFR & GFRAA in patients over 70 years has not been determined. Clinical correlation is essential. Serum or plasma thyroid stim ulating hormone (TSH) measurement (units/volume)Ordered By: Getachew Nicholas on 05-20-2023 TSH Qn 2.43 uIU/mL 0.358-3.74 [facility] Serum or plasma urea nitroge n measurement (mass/volume)Ordered By: Getachew Nicholas on 05-20-2023 Urea nitrogen [Mass/Vol] 26 mg/dL 7-18 [facility] Squamous epithelial cells de tection in urine sediment by light microscopyOrdered By: Getachew Nicholas on 05-20-2023 Epithelial cells.squamous LM Ql (Urine sed) 0 SEEN /hpf 0-5 [facility] Thin prep Papanicolaou smear with manual screeningOrdered By: Getachew Nicholas on 05-20-2023 Protein (U) [Mass/Vol] 17.6 mg/dL 0.0-11.8 [facility] Thin prep Papanicolaou smear with manual screening 4.1 g/dL 3.2-5.0 [facility] Thin prep Papanicolaou smear with manual screening 78 U/L 15-37 [facility] Thin prep Papanicolaou smear with manual screening 8 5-15 [facility] Thin prep Papanicolaou smear with manual screening 1.18 ng/dL 0.76-1.46 [facility] Urine blood detectionOrdered By: Getachew Nicholas on 05-20-2023 RBC Ql (U) Negative Negative [facility] Urine clarityOrdered By: Lauro Nihcolas on 05-20-2023 Clarity (U) Clear Clear [facility] Urine color determinationOrd ered By: Getachew Nicholas on 05-20-2023 Color (U) Yellow Yellow [facility] Urine creatinine measurement (mass/volume)Ordered By: Getachew Nicholas on 05-20-2023 Creatinine (U) [Mass/Vol] 54.40 mg/dL NO RANGE EST. [facility] Urine glucose detectionOrder ed By: Getachew Nicholas on 05-20-2023 Glucose Ql (U) 250 mg/dl Normal [facility] Urine leukocyte esterase det ection by dipstickOrdered By: Getachew Nicholas on 05-20-2023 Leukocyte esterase Test strip Ql (U) Negative Negative [facility] Urine pHOrdered By: Getachew patricia on 05-20-2023 pH (U) 6.0 [pH] 5.0 - 8.0 [facility] Urine protein/creatinine mas s ratioOrdered By: Getachew Nicholas on 05-20-2023 Protein/Creatinine (U) [Mass ratio] 324 mg/g CRE 0-200 [facility] Urine sediment bacteria coun t by microscopy (number/high power field)Ordered By: Getachew Nicholas on 05-20-2023 Bacteria LM.HPF (Urine sed) [#/Area] 0 /[HPF] None Seen [facility] Urine specific gravity measu rementOrdered By: Getachew Nicholas on 05-20-2023 Specific gravity (U) [Rel density] 1.010 1.002-1.030 [facility] Urine urobilinogen measureme ntOrdered By: Getachew Nicholas on 05-20-2023 Urobilinogen Ql (U) Normal mg/dl Normal [facility] Absolute lymphocyte countOrd ered By: Dr. Alaniz on 03-09-2023 Lymphocytes Auto (Unsp spec) [#/Vol] 1.02 10*3/uL 0.83-4.51 [facility] Basophil percentageOrdered B y: Dr. Alaniz on 06-14-2022 Basophils/100 WBC (Bld) 0.4 % 0-1 [facility] Chloride [Moles/Vol] 104 mmol/L 98-107 [facility] Eosinophils/100 WBC (Bld) 0.3 % 0-5 [facility] Glucose [Mass/Vol] 118 mg/dL 74-106 [facility] Comment on above: Fasting Glucose resu lt from 100 to 125 mg/dL suggests IMPAIRED HOMEOSTASIS per A.D.A. criteria. Neutrophils (Bld) [#/Vol] 8.3 10*3/uL 2.0-7.7 [facility] Neutrophils/100 WBC (Bld) 82.0 % 47-70 [facility] Potassium [Moles/Vol] 3.6 mmol/L 3.5-5.1 [facility] Sodium [Moles/Vol] 138 mmol/L 136-145 [facility] WBC (Bld) [#/Vol] 10.1 10*3/uL 4.4-11.0 [facility] Blood erythrocytes count (nu mber/volume)Ordered By: Dr. Alaniz on 06-14-2022 RBC (Bld) [#/Vol] 3.90 10*6/uL 4.6-6.2 [facility] Blood hemoglobin measurement (mass/volume)Ordered By: Dr. Alaniz on 06-14-2022 Hemoglobin (Bld) [Mass/Vol] 12.4 g/dL 13.0-16.5 [facility] Blood lymphocytes/100 leukoc ytesOrdered By: Dr. Alaniz on 06-14-2022 Lymphocytes/100 WBC (Bld) 10.1 % 19-41 [facility] Blood manual differential co mment interpretation (narrative result)Ordered By: Dr. Alaniz on 06-14-2022 Manual differential comment Danielito (Bld) [Interp] SCANNED [facility] Blood monocytes/100 leukocyt esOrdered By: Dr. Alaniz on 06-14-2022 Monocytes/100 WBC (Bld) 6.8 % 0-10 [facility] Blood platelet mean volumeOr dered By: Dr. Alaniz on 06-14-2022 Platelet mean volume (Bld) [Entitic vol] 9.5 fL 6.2-12.0 [facility] Determination of erythrocyte mean corpuscular volume (MCV)Ordered By: Dr. Alaniz on 06-14-2022 MCV (RBC) [Entitic vol] 96.7 fL 80-94 [facility] Hematocrit Auto (Bld) [Volum e fraction]Ordered By: Dr. Alaniz on 06-14-2022 Hematocrit (Bld) [Volume fraction] 37.7 % 40-54 [facility] Influenza virus A and B and SARS-CoV-2 (COVID-19) Ag panel - Upper respiratory specimOrdered By: Dr. Alaniz on 06-14-2022 SARS-CoV-2 & FLU Antigen (Rapid) SARS-CoV-2 (COVID 19) [facility] Laboratory - Chemistry and C hemistry - challengeOrdered By: Dr. Alaniz on 06-14-2022 CO2 [Moles/Vol] 22.0 mmol/L 21.0-32.0 [facility] Urea nitrogen/Creatinine [Mass ratio] 19.3 mg/mg 10-20 [facility] Laboratory - Hematology and Cell countsOrdered By: Dr. Alaniz on 06-14-2022 Erythrocyte distribution width (RBC) [Entitic vol] 50.9 fL 35.1-43.9 [facility] Erythrocyte distribution width (RBC) [Ratio] 14.3 % 11.6-14.6 [facility] Immature granulocytes/100 WBC (Bld) 0.400 % 0.0-0.9 [facility] Comment on above: IG% - Immature Granu locytes (promyelocytes, myelocytes and metamyelocytes) > 1% indicates that a LEFT SHIFT is Present. MCH (RBC) [Entitic mass] 31.8 pg 27.0-32.0 [facility] Nucleated RBC/100 WBC (Bld) [Ratio] 0 % 0-5 [facility] MCHC Auto (RBC) [Mass/Vol]Or dered By: Dr. Alaniz on 06-14-2022 MCHC (RBC) [Mass/Vol] 32.9 g/dL 32-36 [facility] No Panel InformationOrdered By: Dr. Alaniz on 06-14-2022 Estimated Creatinine Clearance Calc 29.30 ml/min [facility] Estimated GFR (MDRD) Amer 41 mL/min >60 [facility] Comment on above: GFR Calc Estimated GFR (MDRD) Non-Af Amer 34 mL/min >60 [facility] Comment on above: Non- GFR Calc Platelets bldOrdered By: Dr. Alaniz on 06-14-2022 Platelets (Bld) [#/Vol] 192 10*3/uL 150-450 [facility] Serum or plasma calcium nicol urement (mass/volume)Ordered By: Dr. Alaniz on 06-14-2022 Calcium [Mass/Vol] 9.6 mg/dL 8.5-10.1 [facility] Serum or plasma creatinine m easurement (mass/volume)Ordered By: Dr. Alaniz on 06-14-2022 Creatinine [Mass/Vol] 2.07 mg/dL 0.70-1.30 [facility] Comment on above: The validity of the calculated GFR & GFRAA in patients over 70 years has not been determined. Clinical correlation is essential. Serum or plasma urea nitroge n measurement (mass/volume)Ordered By: Dr. Alaniz on 06-14-2022 Urea nitrogen [Mass/Vol] 40 mg/dL 7-18 [facility] Thin prep Papanicolaou smear with manual screeningOrdered By: Dr. Alaniz on 06-14-2022 Thin prep Papanicolaou smear with manual screening 12 5-15 [facility] Basophil percentageOrdered B y: Dr. Nicholas on 05-22-2022 Bilirubin [Mass/Vol] 0.80 mg/dL 0.20-1.00 [facility] Comment on above: For patients on eltr ombopag therapy, use of Dim[place] TBIL is not recommended. Chloride [Moles/Vol] 104 mmol/L 98-107 [facility] Glucose [Mass/Vol] 116 mg/dL 74-106 [facility] Comment on above: Fasting Glucose resu lt from 100 to 125 mg/dL suggests IMPAIRED HOMEOSTASIS per A.D.A. criteria. Potassium [Moles/Vol] 3.8 mmol/L 3.5-5.1 [facility] Protein [Mass/Vol] 8.2 g/dL 6.4-8.2 [facility] Sodium [Moles/Vol] 140 mmol/L 136-145 [facility] Laboratory - Chemistry and C hemistry - challengeOrdered By: Dr. Nicholas on 05-22-2022 ALP [Catalytic activity/Vol] 260 U/L 45-117 [facility] ALT [Catalytic activity/Vol] 53 U/L 16-61 [facility] Amylase [Catalytic activity/Vol] 1901 U/L 15-85 [facility] CO2 [Moles/Vol] 22.0 mmol/L 21.0-32.0 [facility] Globulin (S) [Mass/Vol] 3.3 g/dL 2.2-4.2 [facility] Urea nitrogen/Creatinine [Mass ratio] 16.9 mg/mg 10-20 [facility] No Panel InformationOrdered By: Dr. Nicholas on 05-22-2022 Estimated GFR (MDRD) Amer 67 mL/min >60 [facility] Comment on above: GFR Calc Estimated GFR (MDRD) Non-Af Amer 55 mL/min >60 [facility] Comment on above: Non- GFR Calc Hepatitis B Surface Antigen Non-Reactive Nonreactive [facility] Hepatitis C Antibody Non-Reactive Nonreactive [facility] Comment on above: Non Reactive: < 0.8 Equivocal: >/= 0.8 to < 1.0 Reactive: >/= 1.0The CDC recommends that a reactive/equivocal HCV antibody result be followed up by the HCV Nucleic Acid Amplificationtest (232610) Serum hepatitis B virus surf [place] antibody IgG detectionOrdered By: Dr. Nicholas on 05-22-2022 HBV surface IgG Ql (S) Non-Reactive [facility] Comment on above: Non Reactive: Incons istent with immunity less than <10 mIU/mL Reactive: Consistent with immunity greater than or equal to 10 mIU/mL Serum or plasma albumin nicol urement (mass/volume)Ordered By: Dr. Nicholas on 05-22-2022 Albumin [Mass/Vol] 4.9 g/dL 3.2-5.0 [facility] Serum or plasma albumin/glob ulin mass ratioOrdered By: Dr. Nicholas on 05-22-2022 Albumin/Globulin [Mass ratio] 1.5 {ratio} 0.9-2.4 [facility] Serum or plasma calcium nicol urement (mass/volume)Ordered By: Dr. Nicholas on 05-22-2022 Calcium [Mass/Vol] 10.0 mg/dL 8.5-10.1 [facility] Serum or plasma creatinine m easurement (mass/volume)Ordered By: Dr. Nicholas on 05-22-2022 Creatinine [Mass/Vol] 1.36 mg/dL 0.70-1.30 [facility] Comment on above: The validity of the calculated GFR & GFRAA in patients over 70 years has not been determined. Clinical correlation is essential. Serum or plasma urea nitroge n measurement (mass/volume)Ordered By: Dr. Nicholas on 05-22-2022 Urea nitrogen [Mass/Vol] 23 mg/dL 7-18 [facility] Thin prep Papanicolaou smear with manual screeningOrdered By: Dr. Nicholas on 05-22-2022 Thin prep Papanicolaou smear with manual screening 45 U/L 15-37 [facility] Thin prep Papanicolaou smear with manual screening 14 5-15 [facility] Absolute lymphocyte countOrd ered By: Dr. Nicholas on 05-18-2022 Lymphocytes Auto (Unsp spec) [#/Vol] 1.46 10*3/uL 0.83-4.51 [facility] Basophil percentageOrdered B y: Dr. Nicholas on 05-18-2022 Basophil percentage 0 SEEN /hpf 0-5 [facility] Basophil percentage 3.3 mg/dL 2.5-4.9 [facility] Basophils/100 WBC (Bld) 0.6 % 0-1 [facility] Bilirubin [Mass/Vol] 0.60 mg/dL 0.20-1.00 [facility] Comment on above: For patients on eltr ombopag therapy, use of Dim[place] TBIL is not recommended. Chloride [Moles/Vol] 105 mmol/L 98-107 [facility] Cholesterol [Mass/Vol] 182 mg/dL <200 [facility] Comment on above: <200 mg/dL Desirable 200-240 mg/dL Borderline >240 mg/dL High Risk Eosinophils/100 WBC (Bld) 1.8 % 0-5 [facility] Glucose [Mass/Vol] 119 mg/dL 74-106 [facility] Comment on above: Fasting Glucose resu lt from 100 to 125 mg/dL suggests IMPAIRED HOMEOSTASIS per A.D.A. criteria. Neutrophils (Bld) [#/Vol] 4.5 10*3/uL 2.0-7.7 [facility] Neutrophils/100 WBC (Bld) 68.4 % 47-70 [facility] Potassium [Moles/Vol] 3.5 mmol/L 3.5-5.1 [facility] Protein [Mass/Vol] 8.2 g/dL 6.4-8.2 [facility] Sodium [Moles/Vol] 141 mmol/L 136-145 [facility] Triglyceride [Mass/Vol] 307 mg/dL <199 [facility] Comment on above: The drugs N-Acetylcy steine and Metamizole may falsely depress this assay.Serum Triglycerides Reference Interval Normal <150 mg/dL Borderline high 150 - 199 mg/dL High 200 - 499 mg/dL Very High > or = 500 mg/dL WBC (Bld) [#/Vol] 6.6 10*3/uL 4.4-11.0 [facility] Bilirubin Test strip Ql (U)O rdered By: Dr. Nicholas on 05-18-2022 Bilirubin Ql (U) Negative Negative [facility] Blood erythrocytes count (nu mber/volume)Ordered By: Dr. Nicholas on 05-18-2022 RBC (Bld) [#/Vol] 4.36 10*6/uL 4.6-6.2 [facility] Blood hemoglobin measurement (mass/volume)Ordered By: Dr. Nicholas on 05-18-2022 Hemoglobin (Bld) [Mass/Vol] 14.0 g/dL 13.0-16.5 [facility] Blood lymphocytes/100 leukoc ytesOrdered By: Dr. Nicholas on 05-18-2022 Lymphocytes/100 WBC (Bld) 22.1 % 19-41 [facility] Blood monocytes/100 leukocyt esOrdered By: Dr. Nicholas on 05-18-2022 Monocytes/100 WBC (Bld) 6.8 % 0-10 [facility] Blood platelet mean volumeOr dered By: Dr. Nicholas on 05-18-2022 Platelet mean volume (Bld) [Entitic vol] 10.4 fL 6.2-12.0 [facility] Determination of erythrocyte mean corpuscular volume (MCV)Ordered By: Dr. Nicholas on 05-18-2022 MCV (RBC) [Entitic vol] 95.9 fL 80-94 [facility] Hematocrit Auto (Bld) [Volum e fraction]Ordered By: Dr. Nicholas on 05-18-2022 Hematocrit (Bld) [Volume fraction] 41.8 % 40-54 [facility] Ketones Test strip Ql (U)Ord ered By: Dr. Nicholas on 05-18-2022 Ketones Ql (U) Negative Negative [facility] Laboratory - Chemistry and C hemistry - challengeOrdered By: Dr. Nicholas on 05-18-2022 ALP [Catalytic activity/Vol] 278 U/L 45-117 [facility] ALT [Catalytic activity/Vol] 67 U/L 16-61 [facility] CO2 [Moles/Vol] 25.0 mmol/L 21.0-32.0 [facility] Free T4 [Mass/Vol] 1.05 ng/dL 0.76-1.46 [facility] Globulin (S) [Mass/Vol] 3.9 g/dL 2.2-4.2 [facility] Magnesium [Mass/Vol] 1.9 mg/dL 1.6-2.6 [facility] Urea nitrogen/Creatinine [Mass ratio] 17.2 mg/mg 10-20 [facility] Laboratory - Hematology and Cell countsOrdered By: Dr. Nicholas on 05-18-2022 Erythrocyte distribution width (RBC) [Entitic vol] 48.9 fL 35.1-43.9 [facility] Erythrocyte distribution width (RBC) [Ratio] 13.8 % 11.6-14.6 [facility] Immature granulocytes/100 WBC (Bld) 0.300 % 0.0-0.9 [facility] Comment on above: IG% - Immature Granu locytes (promyelocytes, myelocytes and metamyelocytes) > 1% indicates that a LEFT SHIFT is Present. MCH (RBC) [Entitic mass] 32.1 pg 27.0-32.0 [facility] Nucleated RBC/100 WBC (Bld) [Ratio] 0 % 0-5 [facility] MCHC Auto (RBC) [Mass/Vol]Or dered By: Dr. Nicholas on 05-18-2022 MCHC (RBC) [Mass/Vol] 33.5 g/dL 32-36 [facility] Mucus LM Ql (Urine sed)Order ed By: Dr. Nicholas on 05-18-2022 Mucus Ql (Urine sed) 0 SEEN /hpf [facility] Nitrite Test strip Ql (U)Ord ered By: Dr. Nicholas on 05-18-2022 Nitrite Ql (U) Negative Negative [facility] No Panel InformationOrdered By: Dr. Nicholas on 05-18-2022 Estimated GFR (MDRD) Amer 72 mL/min >60 [facility] Comment on above: GFR Calc Estimated GFR (MDRD) Non-Af Amer 59 mL/min >60 [facility] Comment on above: Non- GFR Calc Parathyroid Hormone (Intact) 35.0 pg/mL 18.4-80.1 [facility] Thyroid Stimulating Hormone (TSH) 2.67 uIU/mL 0.358-3.74 [facility] Vitamin D 25-Hydroxy 33.0 ng/mL [facility] Comment on above: Vitamin D 25(OH) Sta tus Range Deficiency <20 ng/mL (50nmol/L) Insufficiency 20 - 30 ng/mL (50 - 75 nmol/L) Sufficiency 30 - 100 ng/mL (75 - 250 nmol/L) Toxicity >100 ng/mL (>250 nmol/L) Platelets bldOrdered By: Dr. Nicholas on 05-18-2022 Platelets (Bld) [#/Vol] 222 10*3/uL 150-450 [facility] Protein Test strip Ql (U)Ord ered By: Dr. Nicholas on 05-18-2022 Protein Ql (U) Negative Negative [facility] Serum or plasma albumin nicol urement (mass/volume)Ordered By: Dr. Nicholas on 05-18-2022 Albumin [Mass/Vol] 4.3 g/dL 3.2-5.0 [facility] Serum or plasma albumin/glob ulin mass ratioOrdered By: Dr. Nicholas on 05-18-2022 Albumin/Globulin [Mass ratio] 1.1 {ratio} 0.9-2.4 [facility] Serum or plasma calcium nicol urement (mass/volume)Ordered By: Dr. Nicholas on 05-18-2022 Calcium [Mass/Vol] 10.1 mg/dL 8.5-10.1 [facility] Serum or plasma cholesterol in HDL measurement (mass/volume)Ordered By: Dr. Nicholas on 05-18-2022 Cholesterol in HDL [Mass/Vol] 72 mg/dL >40 [facility] Comment on above: The drugs N-Acetylcy steine and Metamizole may falsely depress this assay. Reference Range HDL <40 mg/dL Low HDL Cholesterol HDL >or= 60 mg/dL High HDL Cholesterol Serum or plasma cholesterol in VLDL measurement (mass/volume)Ordered By: Dr. Nicholas on 05-18-2022 Cholesterol in VLDL [Mass/Vol] 61 mg/dL 5-40 [facility] Serum or plasma creatinine m easurement (mass/volume)Ordered By: Dr. Nicholas on 05-18-2022 Creatinine [Mass/Vol] 1.28 mg/dL 0.70-1.30 [facility] Comment on above: The validity of the calculated GFR & GFRAA in patients over 70 years has not been determined. Clinical correlation is essential. Serum or plasma low density lipoprotein (LDL) cholesterol measurement (mass/volume)Ordered By: Dr. Nicholas on 05-18-2022 Cholesterol in LDL [Mass/Vol] 49 mg/dL 0-130 [facility] Serum or plasma urea nitroge n measurement (mass/volume)Ordered By: Dr. Nicholas on 05-18-2022 Urea nitrogen [Mass/Vol] 22 mg/dL 7-18 [facility] Squamous epithelial cells de tection in urine sediment by light microscopyOrdered By: Dr. Nicholas on 05-18-2022 Epithelial cells.squamous LM Ql (Urine sed) 0 SEEN /hpf 0-5 [facility] Thin prep Papanicolaou smear with manual screeningOrdered By: Dr. Nicholas on 05-18-2022 Thin prep Papanicolaou smear with manual screening 58 U/L 15-37 [facility] Thin prep Papanicolaou smear with manual screening 11 5-15 [facility] Urine blood detectionOrdered By: Dr. Nicholas on 05-18-2022 RBC Ql (U) Negative Negative [facility] RBC Ql (U) 0 SEEN /hpf 0-5 [facility] Urine clarityOrdered By: Dr. Nicholas on 05-18-2022 Clarity (U) Clear Clear [facility] Urine color determinationOrd ered By: Dr. Nicholas on 05-18-2022 Color (U) Yellow Yellow [facility] Urine glucose detectionOrder ed By: Dr. Nicholas on 05-18-2022 Glucose Ql (U) Normal mg/dl Normal [facility] Urine leukocyte esterase det ection by dipstickOrdered By: Dr. Nicholas on 05-18-2022 Leukocyte esterase Test strip Ql (U) Negative Negative [facility] Urine pHOrdered By: Dr. Erich valentine on 05-18-2022 pH (U) 6.0 [pH] 5.0 - 8.0 [facility] Urine sediment bacteria coun t by microscopy (number/high power field)Ordered By: Dr. Nicholas on 05-18-2022 Bacteria LM.HPF (Urine sed) [#/Area] 0 /[HPF] None Seen [facility] Urine specific gravity measu rementOrdered By: Dr. Nicholas on 05-18-2022 Specific gravity (U) [Rel density] 1.010 1.002-1.030 [facility] Urobilinogen Auto test strip Ql (U)Ordered By: Dr. Nicholas on 05-18-2022 Urobilinogen Ql (U) Normal mg/dl Normal [facility] Absolute lymphocyte counton 12-12-2021 Lymphocytes Auto (Unsp spec) [#/Vol] 1.57 10*3/uL 0.83-4.51 [facility] Work Phone: Basophil percentageon 2021 Basophil percentage 2.9 mg/dL 2.5-4.9 [facility] Work Phone: Basophils/100 WBC (Bld) 0.5 % 0-1 [facility] Work Phone: Bilirubin [Mass/Vol] 0.70 mg/dL 0.20-1.00 [facility] Work Phone: Comment on above: For patients on eltr ombopag therapy, use of Dim[place] TBIL is not recommended. Chloride [Moles/Vol] 107 mmol/L 98-107 [facility] Work Phone: Cholesterol [Mass/Vol] 136 mg/dL <200 [facility] Work Phone: Comment on above: <200 mg/dL Desirable 200-240 mg/dL Borderline >240 mg/dL High Risk Eosinophils/100 WBC (Bld) 2.1 % 0-5 [facility] Work Phone: Glucose [Mass/Vol] 107 mg/dL 74-106 [facility] Work Phone: Comment on above: Fasting Glucose resu lt from 100 to 125 mg/dL suggests IMPAIRED HOMEOSTASIS per A.D.A. criteria. Neutrophils (Bld) [#/Vol] 4.0 10*3/uL 2.0-7.7 [facility] Work Phone: Neutrophils/100 WBC (Bld) 63.3 % 47-70 [facility] Work Phone: Potassium [Moles/Vol] 3.4 mmol/L 3.5-5.1 [facility] Work Phone: Protein [Mass/Vol] 7.4 g/dL 6.4-8.2 [facility] Work Phone: Sodium [Moles/Vol] 142 mmol/L 136-145 [facility] Work Phone: Triglyceride [Mass/Vol] 136 mg/dL <199 [facility] Work Phone: Comment on above: The drugs N-Acetylcy steine and Metamizole may falsely depress this assay.Serum Triglycerides Reference Interval Normal <150 mg/dL Borderline high 150 - 199 mg/dL High 200 - 499 mg/dL Very High > or = 500 mg/dL WBC (Bld) [#/Vol] 6.3 10*3/uL 4.4-11.0 [facility] Work Phone: Blood erythrocytes count (nu mber/volume)on 12-12-2021 RBC (Bld) [#/Vol] 3.96 10*6/uL 4.6-6.2 [facility] Work Phone: Blood hemoglobin measurement (mass/volume)on 12-12-2021 Hemoglobin (Bld) [Mass/Vol] 12.5 g/dL 13.0-16.5 [facility] Work Phone: Blood lymphocytes/100 leukoc yteson 12-12-2021 Lymphocytes/100 WBC (Bld) 25.0 % 19-41 [facility] Work Phone: Blood monocytes/100 leukocyt eson 12-12-2021 Monocytes/100 WBC (Bld) 8.8 % 0-10 [facility] Work Phone: Blood platelet mean volumeon 12-12-2021 Platelet mean volume (Bld) [Entitic vol] 11.2 fL 6.2-12.0 [facility] Work Phone: Determination of erythrocyte mean corpuscular volume (MCV)on 12-12-2021 MCV (RBC) [Entitic vol] 95.5 fL 80-94 [facility] Work Phone: Hematocrit Auto (Bld) [Volum e fraction]on 12-12-2021 Hematocrit (Bld) [Volume fraction] 37.8 % 40-54 [facility] Work Phone: Iron measurement (mass/mass) on 12-12-2021 Iron (Unsp spec) [Mass/Mass] 87 ug/dL 65-175 [facility] Work Phone: Laboratory - Chemistry and C hemistry - challengeon 12-12-2021 ALP [Catalytic activity/Vol] 109 U/L 45-117 [facility] Work Phone: ALT [Catalytic activity/Vol] 28 U/L 16-61 [facility] Work Phone: CO2 [Moles/Vol] 26.0 mmol/L 21.0-32.0 [facility] Work Phone: Cobalamin (Vitamin B12) [Mass/Vol] 501 pg/mL 211-911 [facility] Work Phone: Free T4 [Mass/Vol] 1.17 ng/dL 0.76-1.46 [facility] [facility] Work Phone: Globulin (S) [Mass/Vol] 3.4 g/dL 2.2-4.2 [facility] Work Phone: Magnesium [Mass/Vol] 2.1 mg/dL 1.6-2.[address] [facility] Work Phone: Transferrin [Mass/Vol] 396 mg/dL 177-329 [place] [facility] Work Phone: Comment on above: Performed at: [address] [id number] Director: Jez Whipple PhD, Phone: [phone] Urea nitrogen/Creatinine [Mass ratio] 15.2 mg/mg 10-20 [facility] Work Phone: Laboratory - Hematology and Cell countson 12-12-2021 Erythrocyte distribution width (RBC) [Entitic vol] 47.8 fL 35.1-43.9 [facility] Work Phone: Erythrocyte distribution width (RBC) [Ratio] 13.6 % 11.6-14.6 [facility] Work Phone: Immature granulocytes/100 WBC (Bld) 0.300 % 0.0-0.9 [facility] Work Phone: Comment on above: IG% - Immature Granu locytes (promyelocytes, myelocytes and metamyelocytes) > 1% indicates that a LEFT SHIFT is Present. MCH (RBC) [Entitic mass] 31.6 pg 27.0-32.0 [facility] Work Phone: Nucleated RBC/100 WBC (Bld) [Ratio] 0 % 0-5 [facility] Work Phone: MCHC Auto (RBC) [Mass/Vol]on 12-12-2021 MCHC (RBC) [Mass/Vol] 33.1 g/dL 32-36 [facility] Work Phone: No Panel Informationon 12-12 Estimated GFR (MDRD) Amer 66 mL/min >60 [facility] Work Phone: Comment on above: GFR Calc Estimated GFR (MDRD) Non-Af Amer 54 mL/min >60 [facility] Work Phone: Comment on above: Non- GFR Calc Thyroid Stimulating Hormone (TSH) 2.98 uIU/mL 0.358-3.74 [facility] Work Phone: Total Iron Binding Capacity 497 ug/dL 250-450 [facility] Work Phone: Vitamin D 25-Hydroxy 32.8 ng/mL [facility] Work Phone: Comment on above: Vitamin D 25(OH) Sta tus Range Deficiency <20 ng/mL (50nmol/L) Insufficiency 20 - 30 ng/mL (50 - 75 nmol/L) Sufficiency 30 - 100 ng/mL (75 - 250 nmol/L) Toxicity >100 ng/mL (>250 nmol/L) Platelets bldon 12-12-2021 Platelets (Bld) [#/Vol] 217 10*3/uL 150-450 [facility] Work Phone: Serum or plasma albumin nicol urement (mass/volume)on 12-12-2021 Albumin [Mass/Vol] 4.0 g/dL 3.2-5.0 [facility] Work Phone: Serum or plasma albumin/glob ulin mass ratioon 12-12-2021 Albumin/Globulin [Mass ratio] 1.2 {ratio} 0.9-2.4 [facility] Work Phone: Serum or plasma calcium nicol urement (mass/volume)on 12-12-2021 Calcium [Mass/Vol] 9.6 mg/dL 8.5-10.1 [facility] Work Phone: Serum or plasma cholesterol in HDL measurement (mass/volume)on 12-12-2021 Cholesterol in HDL [Mass/Vol] 59 mg/dL >40 [facility] Work Phone: Comment on above: The drugs N-Acetylcy steine and Metamizole may falsely depress this assay. Reference Range HDL <40 mg/dL Low HDL Cholesterol HDL >or= 60 mg/dL High HDL Cholesterol Serum or plasma cholesterol in VLDL measurement (mass/volume)on 12-12-2021 Cholesterol in VLDL [Mass/Vol] 27 mg/dL 5-40 [facility] Work Phone: Serum or plasma creatinine m easurement (mass/volume)on 12-12-2021 Creatinine [Mass/Vol] 1.38 mg/dL 0.70-1.30 [facility] Work Phone: Comment on above: The validity of the calculated GFR & GFRAA in patients over 70 years has not been determined. Clinical correlation is essential. Serum or plasma ferritin nella surement (mass/volume)on 12-12-2021 Ferritin [Mass/Vol] 53 ng/mL 26-388 [facility] Work Phone: Serum or plasma iron saturat ion measurement (mass fraction)on 12-12-2021 Iron saturation [Mass fraction] 17.5 % 15.0-55.0 [facility] Work Phone: Serum or plasma low density lipoprotein (LDL) cholesterol measurement (mass/volume)on 12-12-2021 Cholesterol in LDL [Mass/Vol] 50 mg/dL 0-130 [facility] Work Phone: Serum or plasma urea nitroge n measurement (mass/volume)on 12-12-2021 Urea nitrogen [Mass/Vol] 21 mg/dL 7-18 [facility] Work Phone: Thin prep Papanicolaou smear with manual screeningon 12-12-2021 Thin prep Papanicolaou smear with manual screening 26 U/L 15-37 [facility] Work Phone: Thin prep Papanicolaou smear with manual screening 9 5-15 [facility] Work Phone: Urine creatinine measurement (mass/volume)on 12-12-2021 Creatinine (U) [Mass/Vol] 18.00 mg/dL NO RANGE EST. [facility] Work Phone: Urine protein measurement (m ass/volume)on 12-12-2021 Protein (U) [Mass/Vol] 8.7 mg/dL 0.0-11.8 [facility] Work Phone: Urine protein/creatinine mas s ratioon 12-12-2021 Protein/Creatinine (U) [Mass ratio] 483 mg/g CRE 0-200 [facility] Work Phone: Absolute lymphocyte counton 06-13-2021 Lymphocytes Auto (Unsp spec) [#/Vol] 1.57 10*3/uL 0.83-4.51 [facility] Work Phone: Basophil percentageon 2021 Basophil percentage 0-5 SEEN /hpf [facility] Work Phone: Basophil percentage 2.4 mg/dL 2.5-4.9 [facility] Work Phone: Basophils/100 WBC (Bld) 0.6 % 0-1 [facility] Work Phone: [phone] Bilirubin [Mass/Vol] 0.60 mg/dL 0.20-1.00 [facility] Work Phone: Comment on above: For patients on eltr ombopag therapy, use of Dimension [place] TBIL is not recommended. Chloride [Moles/Vol] 107 mmol/L 98-107 [facility] Work Phone: Cholesterol [Mass/Vol] 177 mg/dL <200 [facility] Work Phone: Comment on above: <200 mg/dL Desirable 200-240 mg/dL Borderline >240 mg/dL High Risk Eosinophils/100 WBC (Bld) 2.0 % 0-5 [facility] Work Phone: Glucose [Mass/Vol] 134 mg/dL 74-106 [facility] Work Phone: Comment on above: Fasting Glucose resu lt greater than or equal to 126 mg/dL suggests DIABETES MELLITUS per A.D.A. criteria. Neutrophils (Bld) [#/Vol] 4.8 10*3/uL 2.0-7.7 [facility] Work Phone: Neutrophils/100 WBC (Bld) 68.1 % 47-70 [facility] Work Phone: Potassium [Moles/Vol] 3.3 mmol/L 3.5-5.1 [facility] Work Phone: Protein [Mass/Vol] 7.5 g/dL 6.4-8.2 [facility] Work Phone: Sodium [Moles/Vol] 140 mmol/L 136-145 [facility] Work Phone: Triglyceride [Mass/Vol] 174 mg/dL [facility] Work Phone: Comment on above: The drugs N-Acetylcy steine and Metamizole may falsely depress this assay.Serum Triglycerides Reference Interval Normal <150 mg/dL Borderline high 150 - 199 mg/dL High 200 - 499 mg/dL Very High > or = 500 mg/dL WBC (Bld) [#/Vol] 7.1 10*3/uL 4.4-11.0 [facility] Work Phone: Bilirubin Test strip Ql (U)o n 06-13-2021 Bilirubin Ql (U) Negative Negative [facility] Work Phone: Blood erythrocytes count (nu mber/volume)on 06-13-2021 RBC (Bld) [#/Vol] 4.47 10*6/uL 4.6-6.2 [facility] Work Phone: Blood hemoglobin measurement (mass/volume)on 06-13-2021 Hemoglobin (Bld) [Mass/Vol] 14.5 g/dL 13.0-16.5 [facility] Work Phone: Blood lymphocytes/100 leukoc yteson 06-13-2021 Lymphocytes/100 WBC (Bld) 22.2 % 19-41 [facility] Work Phone: Blood monocytes/100 leukocyt eson 06-13-2021 Monocytes/100 WBC (Bld) 6.8 % 0-10 [facility] Work Phone: Blood platelet mean volumeon 06-13-2021 Platelet mean volume (Bld) [Entitic vol] 10.4 fL 6.2-12.0 [facility] Work Phone: Determination of erythrocyte mean corpuscular volume (MCV)on 06-13-2021 MCV (RBC) [Entitic vol] 97.8 fL 80-94 [facility] Work Phone: Direct bilirubinon 2 Bilirubin.direct [Mass/Vol] 0.20 mg/dL 0.00-0.30 [facility] Work Phone: Hematocrit Auto (Bld) [Volum e fraction]on 06-13-2021 Hematocrit (Bld) [Volume fraction] 43.7 % 40-54 [facility] Work Phone: Ketones Test strip Ql (U)on 06-13-2021 Ketones Ql (U) Negative Negative [facility] Work Phone: Laboratory - Chemistry and C hemistry - challengeon 06-13-2021 ALP [Catalytic activity/Vol] 75 U/L 45-117 [facility] Work Phone: ALT [Catalytic activity/Vol] 21 U/L 16-61 [facility] Work Phone: CO2 [Moles/Vol] 29.0 mmol/L 21.0-32.0 [facility] Work Phone: Free T4 [Mass/Vol] 1.13 ng/dL 0.76-1.46 [facility] Work Phone: Globulin (S) [Mass/Vol] 3.6 g/dL 2.2-4.2 [facility] Work Phone: Magnesium [Mass/Vol] 2.2 mg/dL 1.6-2.6 [facility] Work Phone: Urea nitrogen/Creatinine [Mass ratio] 16.7 mg/mg 10-20 [facility] Work Phone: Laboratory - Hematology and Cell countson 06-13-2021 Erythrocyte distribution width (RBC) [Entitic vol] 49.1 fL 35.1-43.9 [facility] Work Phone: Erythrocyte distribution width (RBC) [Ratio] 13.4 % 11.6-14.6 [facility] Work Phone: Immature granulocytes/100 WBC (Bld) 0.300 % 0.0-0.9 [facility] Work Phone: Comment on above: IG% - Immature Granu locytes (promyelocytes, myelocytes and metamyelocytes) > 1% indicates that a LEFT SHIFT is Present. MCH (RBC) [Entitic mass] 32.4 pg 27.0-32.0 [facility] Work Phone: Nucleated RBC/100 WBC (Bld) [Ratio] 0 % 0-5 [facility] Work Phone: MCHC Auto (RBC) [Mass/Vol]on 06-13-2021 MCHC (RBC) [Mass/Vol] 33.2 g/dL 32-36 [facility] Work Phone: Mucus LM Ql (Urine sed)on Mucus Ql (Urine sed) 0 SEEN /hpf [facility] Work Phone: Nitrite Test strip Ql (U)on 06-13-2021 Nitrite Ql (U) Negative Negative [facility] Work Phone: No Panel Informationon 06-13 Estimated GFR (MDRD) Amer 63 mL/min >60 [facility] Work Phone: Comment on above: GFR Calc Estimated GFR (MDRD) Non-Af Amer 52 mL/min >60 [facility] Work Phone: Comment on above: Non- GFR Calc Parathyroid Hormone (Intact) 40.4 pg/mL 18.4-80.1 [facility] Work Phone: Thyroglobulin Antibody < 1.0 IU/mL [facility] Work Phone: Comment on above: Thyroglobulin Antibo dy measured by [employer] Thyroglobulin Level 23.8 ng/mL [facility] Work Phone: Comment on above: According to the [facility] [employer] of Clinical [employer]ochemistry,the reference interval for Thyroglobulin (TG) should berelated to euthyroid patients and not for patients whounderwent thyroidectomy. TG reference intervals for thesepatients depend on the residual mass of the thyroid tissueleft after surgery. Establishing a post-operative baselineis recommended. The assay limit of quantitation is 0.1ng/mLThyroglobulin measured by [employer] Thyroid Stimulating Hormone (TSH) 3.73 uIU/mL 0.358-3.74 [facility] Work Phone: Vitamin D 25-Hydroxy 28.4 ng/mL [facility] Work Phone: Comment on above: Vitamin D 25(OH) Sta tus Range Deficiency <20 ng/mL (50nmol/L) Insufficiency 20 - 30 ng/mL (50 - 75 nmol/L) Sufficiency 30 - 100 ng/mL (75 - 250 nmol/L) Toxicity >100 ng/mL (>250 nmol/L) Platelets bldon 06-13-2021 Platelets (Bld) [#/Vol] 262 10*3/uL 150-450 [facility] Work Phone: Protein Test strip Ql (U)on 06-13-2021 Protein Ql (U) Negative Negative [facility] Work Phone: Serum or plasma albumin nicol urement (mass/volume)on 06-13-2021 Albumin [Mass/Vol] 3.9 g/dL 3.2-5.0 [facility] Work Phone: Serum or plasma calcium nicol urement (mass/volume)on 06-13-2021 Calcium [Mass/Vol] 9.6 mg/dL 8.5-10.1 [facility] Work Phone: Serum or plasma cholesterol in HDL measurement (mass/volume)on 06-13-2021 Cholesterol in HDL [Mass/Vol] 61 mg/dL [facility] Work Phone: Comment on above: The drugs N-Acetylcy steine and Metamizole may falsely depress this assay. Reference Range HDL <40 mg/dL Low HDL Cholesterol HDL >or= 60 mg/dL High HDL Cholesterol Serum or plasma cholesterol in VLDL measurement (mass/volume)on 06-13-2021 Cholesterol in VLDL [Mass/Vol] 35 mg/dL 5-40 [facility] Work Phone: Serum or plasma creatinine m easurement (mass/volume)on 06-13-2021 Creatinine [Mass/Vol] 1.44 mg/dL 0.70-1.30 [facility] Work Phone: Comment on above: The validity of the calculated GFR & GFRAA in patients over 70 years has not been determined. Clinical correlation is essential. Serum or plasma low density lipoprotein (LDL) cholesterol measurement (mass/volume)on 06-13-2021 Cholesterol in LDL [Mass/Vol] 81 mg/dL 0-130 [facility] Work Phone: Serum or plasma thyroperoxid ase antibody assay (units/volume)on 06-13-2021 TPO Ab Qn [IU]/mL [facility] Work Phone: Comment on above: Performed at: [facility] [place] [address] [id number] Director: Jez Whipple PhD, Phone: [phone] Serum or plasma urea nitroge n measurement (mass/volume)on 06-13-2021 Urea nitrogen [Mass/Vol] 24 mg/dL 7-18 [facility] Work Phone: Squamous epithelial cells de tection in urine sediment by light microscopyon 06-13-2021 Epithelial cells.squamous LM Ql (Urine sed) 0-5 SEEN /hpf [facility] Work Phone: Thin prep Papanicolaou smear with manual screeningon 06-13-2021 Thin prep Papanicolaou smear with manual screening 20 U/L 15-37 [facility] Work Phone: Thin prep Papanicolaou smear with manual screening 4 5-15 [facility] Work Phone: Urine blood detectionon 03-0 RBC Ql (U) Negative Negative [facility] Work Phone: RBC Ql (U) 0-5 SEEN /hpf [facility] Work Phone: Urine clarityon 06-13-2021 Clarity (U) Clear Clear [facility] Work Phone: Urine color determinationon 06-13-2021 Color (U) Yellow Yellow [facility] Work Phone: Urine creatinine measurement (mass/volume)on 06-13-2021 Creatinine (U) [Mass/Vol] 25.70 mg/dL NO RANGE EST. [facility] Work Phone: Urine glucose detectionon Glucose Ql (U) Normal mg/dl Normal [facility] Work Phone: Urine leukocyte esterase det ection by dipstickon 06-13-2021 Leukocyte esterase Test strip Ql (U) Negative Negative [facility] Work Phone: Urine pHon 06-13-2021 pH (U) 6.5 [pH] [facility] Work Phone: Urine protein measurement (m ass/volume)on 06-13-2021 Protein (U) [Mass/Vol] 15.5 mg/dL 0.0-11.8 [facility] Work Phone: Urine protein/creatinine mas s ratioon 06-13-2021 Protein/Creatinine (U) [Mass ratio] 603 mg/g CRE 0-200 [facility] Work Phone: Urine sediment bacteria coun t by microscopy (number/high power field)on 06-13-2021 Bacteria LM.HPF (Urine sed) [#/Area] 0 /[HPF] None Seen [facility] Work Phone: Urine specific gravity measu rementon 06-13-2021 Specific gravity (U) [Rel density] 1.010 [facility] Work Phone: Urobilinogen Auto test strip Ql (U)on 06-13-2021 Urobilinogen Ql (U) Normal mg/dl Normal [facility] Work Phone: Whole blood hemoglobin A1c/t otal hemoglobin ratio (mass fraction)on 06-13-2021 HbA1c (Bld) [Mass fraction] 5.3 % 3.8-5.6 [facility] Work Phone: Comment on above: Normal < 5.7 % Predi abetic 5.7 - 6.4 % Diabetic >or= 6.5 % Please note range changes. Office Visit: OSAon 02-21-20 Dietary management education, guidance, and counseling (procedure) yes Invalid Interpretation Code [facility] Phone: Documentation of current medications (procedure) Done Invalid Interpretation Code [facility] Phone: Tobacco smoking status NHIS Never Invalid Interpretation Code [facility] Phone: Tobacco use CPHS Never smoker Invalid Interpretation Code [facility] Phone: Replaced Document: Feng Baldwinon 11-23-2016 EKG QRS axis -14 deg Invalid Interpretation Code [facility] Phone: Interpretation Atrial flutter-fibrillation - Nonspecific T-abnormality. ABNORMAL Invalid Interpretation Code [facility] Phone: P [place] 1 deg Invalid Interpretation Code [facility] Phone: OH Interval 0 ms Invalid Interpretation Code [facility] Phone: Pulse (Heart Rate) 84 /min Invalid Interpretation Code [facility] Phone: QRS Duration 104 ms Invalid Interpretation Code [facility] Phone: QT Interval new path ms Invalid Interpretation Code [facility] Work Phone: QTc Avila 400 ms Invalid Interpretation Code [facility] Work Phone: T [place] -1 deg Invalid Interpretation Code [facility] Work Phone: Lab Report: Basic Metabolic Profile (BMP)on 11-07-2016 Anion gap 8 mmol/L Invalid Interpretation Code 5-15 [facility] Work Phone: BUN/Creatinine Ratio 15.5 RATIO Invalid Interpretation Code 10-20 [facility] Work Phone: Calcium 9.2 mg/dL Invalid Interpretation Code 8.5-10.1 [facility] Work Phone: Chloride 108 mmol/L High 98-107 [facility] Work Phone: CO2 25.0 mmol/L Invalid Interpretation Code 21.0-32.0 [facility] Work Phone: Creatinine 1.16 mg/dL Invalid Interpretation Code 0.70-1.30 [facility] Work Phone: eGFR (non-black) 82 mL/min/{1.73_m2} Invalid Interpretation Code >60 [facility] Work Phone: eGFR (non-black) 67 mL/min/{1.73_m2} Invalid Interpretation Code >60 [facility] Work Phone: Glucose mass conc 107 mg/dL Invalid Interpretation Code 70-110 [facility] Work Phone: Potassium molar conc 3.7 mmol/L Invalid Interpretation Code 3.5-5.1 [facility] Work Phone: Sodium 141 mmol/L Invalid Interpretation Code 136-145 [facility] Work Phone: Urea nitrogen 18 mg/dL Invalid Interpretation Code 7-18 [facility] Work Phone: Office Visit: [place] 11-03-19 17 Fall risk assessment No Invalid Interpretation Code [facility] Work Phone: Lab Report: Lipid Profileon 10-15-2016 Cholesterol 159 mg/dL Invalid Interpretation Code 200 [facility] Work Phone: HDL Cholesterol 69 mg/dL Invalid Interpretation Code [facility] Work Phone: LDL Cholesterol 63 mg/dL Invalid Interpretation Code 0-130 [facility] Work Phone: Triglyceride 135 mg/dL Invalid Interpretation Code [facility] Work Phone: very low density lipoproteins 27 mg/dL Invalid Interpretation Code 5-40 [facility] Work Phone: Lab Report: Liver Profileon 10-15-2016 Alanine aminotransferase (ALT) 56 U/L Invalid Interpretation Code 12-78 [facility] Work Phone: Albumin 3.8 g/dL Invalid Interpretation Code 3.4-5.0 [facility] Work Phone: Alkaline phosphatase (ALP) 133 U/L High 45-117 [facility] Work Phone: Aspartate aminotransferase (AST) 32 U/L Invalid Interpretation Code 15-37 [facility] Work Phone: Bilirubin (direct) 0.23 mg/dL Invalid Interpretation Code 0.00-0.30 [facility] Work Phone: Bilirubin (total) 0.80 mg/dL Invalid Interpretation Code 0.20-1.00 [facility] Work Phone: Globulin 3.8 g/dL High 2.3-3.5 [facility] Work Phone: Protein 7.6 g/dL Invalid Interpretation Code 6.4-8.2 [facility] Work Phone: Lab Report: T4 Total, Thyrox inon 10-15-2016 Thyroxine (T4) 9.3 ug/dL Invalid Interpretation Code 4.5-12.1 [facility] Work Phone: Lab Report: Thyroid Stim Hor neema (TSH)on 10-15-2016 Thyroid stimulating hormone (TSH) 3.00 u[iU]/mL Invalid Interpretation Code 0.358-3.74 [facility] Work Phone: Clinical Lists Update: Prelo rn peritoneal dialysis 09-26-2016 Left ventricular Ejection fraction 45 % Invalid Interpretation Code [facility] Work Phone: Vital Signs Date Time Vital Sign Value Performing Clinician Faci lity 06-14-2022 20:48-0500 Body temperature 99 [degF] Dr. Getachew Nicholas Work Phone: [facility] 06-14-2022 20:48-0500 Diastolic blood pressure 74 mm[Hg] Dr. Getachew Nicholas Work Phone: [facility] 06-14-2022 20:48-0500 Heart rate 91 /min Dr. Getachew Nicholas Work Phone: [facility] 06-14-2022 20:48-0500 Respiratory rate 18 /min Dr. Getachew Nicholas Work Phone: [facility] 06-14-2022 20:48-0500 SaO2% (BldA) [Mass fraction] 98 % Dr. Getachew Nicholas Work Phone: [facility] 06-14-2022 20:48-0500 Systolic blood pressure 126 mm[Hg] Dr. Getachew Nicholas Work Phone: [facility] 06-14-2022 18:08-0500 Body mass index (BMI) [Ratio] 29.1 kg/m2 Dr. Getachew Nicholas Work Phone: [facility] 06-14-2022 18:08-0500 Body weight 79.[address] Getachew Nicholas Work Phone: [facility] 06-14-2022 17:33-0500 Body height 165.[address] Getachew Nicholas Work Phone: [facility] 03-22-2022 11:25-0500 Body height 165.[address] Getachew Nicholas Work Phone: [facility] 03-22-2022 11:25-0500 Body mass index (BMI) [Ratio] 30.7 kg/m2 Dr. Getachew Nicholas Work Phone: [facility] 03-22-2022 11:25-0500 Body weight 83.[address] Getachew Nicholas Work Phone: [facility] 03-22-2022 11:25-0500 Diastolic blood pressure 95 mm[Hg] Dr. Getachew Nicholas Work Phone: [facility] 03-22-2022 11:25-0500 Heart rate 83 /min Dr. Getachew Nicholas Work Phone: [facility] 03-22-2022 11:25-0500 Respiratory rate 18 /min Dr. Getachew Nicholas Work Phone: [facility] 03-22-2022 11:25-0500 SaO2% (BldA) [Mass fraction] 99 % Dr. Getachew Nicholas Work Phone: [facility] 03-22-2022 11:25-0500 Systolic blood pressure 173 mm[Hg] Dr. Getachew Nicholas Work Phone: [facility] 11-10-2021 08:46-0400 Body height 165.[address] Getachew Ruffin Work Phone: [facility] Work Phone: 11-10-2021 08:46-0400 Body mass index (BMI) [Ratio] 29.9 kg/m2 Dr. Getachew Ruffin Work Phone: [facility] Work Phone: 11-10-2021 08:46-0400 Body temperature 97.2 [degF] Dr. Getachew Ruffin Work Phone: [facility] Work Phone: 11-10-2021 08:46-0400 Body weight 81.[address] Getachew Ruffin Work Phone: [facility] Work Phone: 11-10-2021 08:46-0400 Diastolic blood pressure 74 mm[Hg] Dr. Getachew Ruffin Work Phone: [facility] Work Phone: 11-10-2021 08:46-0400 Heart rate 60 /min Dr. Getachew Ruffin Work Phone: [facility] Work Phone: 11-10-2021 08:46-0400 Respiratory rate 16 /min Dr. Getachew Ruffin Work Phone: [facility] Work Phone: 11-10-2021 08:46-0400 SaO2% (BldA) [Mass fraction] 95 % Dr. Getachew Ruffin Work Phone: [facility] Work Phone: 11-10-2021 08:46-0400 Systolic blood pressure 125 mm[Hg] Dr. Getachew Ruffin Work Phone: [facility] Work Phone: 09-15-2021 09:08-0400 Body mass index (BMI) [Ratio] 30.9 kg/m2 Dr. Getachew Ruffin Work Phone: [facility] Work Phone: 09-15-2021 09:08-0400 Body weight 84.[address] Getachew Ruffin Work Phone: [facility] Work Phone: 09-15-2021 09:08-0400 Diastolic blood pressure 84 mm[Hg] Dr. Getachew Ruffin Work Phone: [facility] Work Phone: 09-15-2021 09:08-0400 Heart rate 82 /min Dr. Getachew Ruffin Work Phone: [facility] Work Phone: 09-15-2021 09:08-0400 Respiratory rate 16 /min Dr. Getachew Ruffin Work Phone: [facility] Work Phone: 09-15-2021 09:08-0400 SaO2% (BldA) [Mass fraction] 98 % Dr. Getachew Ruffin Work Phone: [facility] Work Phone: 09-15-2021 09:08-0400 Systolic blood pressure 157 mm[Hg] Dr. Getachew Ruffin Work Phone: [facility] Work Phone: 02-20-2017 05:57-0500 BMI (Body Mass Index) 27.98 kg/m2 Nancy Chinho [employer] SUPERVISOR [facility] Work Phone: 02-20-2017 05:57-0500 Body Temperature 97.5 [degF] Nancy Angelnsho DIVE SUPERVISOR [facility] Work Phone: 02-20-2017 05:57-0500 BP Diastolic 80 mm[Hg] Nancy Yensho DIVE SUPERVISOR [facility] Work Phone: 02-20-2017 05:57-0500 BP Systolic 175 mm[Hg] Nancy Yensho DIVE SUPERVISOR [facility] Work Phone: 02-20-2017 05:57-0500 Height 162.56 cm Nancy Yensho DIVE SUPERVISOR [facility] Work Phone: 02-20-2017 05:57-0500 Pulse (Heart Rate) 78 /min Nancy Angelnsho DIVE SUPERVISOR [facility] Work Phone: 02-20-2017 05:57-0500 Respiratory Rate 18 /min Nancy Angelnsho DIVE SUPERVISOR [facility] Work Phone: 02-20-2017 05:57-0500 Weight 73.94 kg Anncy Angelnsho DIVE SUPERVISOR [facility] Work Phone: Encounters Encounter Date Encounter Type Care Provider Facility Start: 08-04-2024 End: 08-04-2024 ambulatory Getachew Nicholas Facility:[facility] Start: 05-21-2024 End: 05-21-2024 ambulatory Getachew Nicholas Facility:[facility] Start: 05-19-2024 End: 05-19-2024 ambulatory Getachew Nicholas Facility:[facility] Start: 03-17-2024 End: 03-17-2024 ambulatory Getachew Nicholas Facility:[facility] Start: 01-14-2024 End: 01-15-2024 ambulatory Getachew Nicholas Facility:[facility] Start: 09-19-2023 End: 09-19-2023 ambulatory [facility] Facility[facility] Start: 08-29-2023 Encounter for genera l adult medical examination without abnormal findings Caitlin Oliveros SURFACER [facility] Start: 08-19-2023 End: 08-19-2023 ambulatory Caitlin Oliveros NP Facility:[facility] Start: 05-20-2023 End: 05-20-2023 ambulatory [facility] Work Phone: Start: 05-20-2023 End: 05-20-2023 Patient encounter procedure [facility] Start: 06-14-2022 End: 06-14-2022 Emergency department patient visit Dr. Getachew Nicholas Work Phone: [facility]-Emergency Department Start: 06-07-2022 End: 06-07-[address] Getachew Nicholas Work Phone: [facility] Work Phone: Start: 06-07-2022 End: 06-07-[address] Getachew Nicholas Work Phone: [facility] Start: 05-30-2022 End: 05-30-[address] Getachew Nicholas Work Phone: [facility] Work Phone: Start: 05-30-2022 End: 05-30-[address] Getachew Nicholas Work Phone: [facility] Start: 05-22-2022 End: 05-22-[address] Getachew Nicholas Work Phone: [facility] Work Phone: Start: 05-22-2022 End: 05-22-[address] Getachew Nicholas Work Phone: [facility] Start: 05-18-2022 End: 05-18-[address] Getachew Nicholas Work Phone: [facility] Work Phone: Start: 05-18-2022 End: 05-18-[address] Getachew Nicholas Work Phone: [facility] Start: 03-22-2022 End: 03-22-[address] Getachew Nicholas Work Phone: [facility] Start: 12-12-2021 End: 12-12-[address] Getachew Ruffin Work Phone: [facility] Work Phone: Start: 12-12-2021 End: 12-12-[address] Getachew Ruffin Work Phone: [facility] Start: 11-10-2021 End: 11-10-[address] [facility] Start: 09-15-2021 End: 09-15-[address] Getachew Ruffin Work Phone: [facility] Start: 07-18-2021 End: 07-18-2021 Patient encounter procedure [facility] Start: 06-13-2021 End: 06-13-2021 Patient encounter procedure [facility], Ivania Faustin Start: 02-04-2016 End: 02-07-2016 Ambulatory GETACHEW BONDS Facility:[facility] Procedures Date Procedure Procedure Detail Performing Clinician Start: 06-14-[address] Getachew Nicholas Work Phone: Start: 06-14-2022 Plain chest X-ray Dr. Getachew Nicholas Work Phone: Start: 06-07-2022 CT of abdomen with contrast Dr. Getachew patricia Work Phone: Start: 05-30-[address] Getachew valentine Work Phone: Start: 07-18-2021 US scan of thyroid Start: 11-23-2016 End: 11-23-2016 Ecg routine ecg w/least 12 lds w/i&r Rosendo Upton MD Work Phone: Start: 11-07-2016 End: 11-07-2016 *BMP Rosendo Upton MD Work Phone: Start: 11-02-2016 End: 11-02-2016 DJN Getachew Hillman SURFACER Work Phone: Start: 11-02-2016 End: 11-14-2016 Ecg routine ecg w/least 12 lds w/i&r Getachew Hillman SURFACER Work Phone: Start: 11-02-2016 End: 11-02-2016 Follow Up Appt 6 months Getachew Hillman SURFACER Work Phone: Start: 10-19-2016 End: 11-14-2016 Cardioversion Rosendo Upton MD Work Phone: Start: 10-04-2016 End: 11-02-2016 Follow Up BP Check Rosendo Upton MD Work Phone: Start: 09-27-2016 End: 10-15-2016 *BMP Rosendo Upton MD Work Phone: Start: 09-27-2016 End: 10-15-2016 *Hepatic Function Panel Rosendo Upton MD Work Phone: Start: 09-27-2016 End: 10-19-2016 Chest x-ray Rosendo Upton MD Work Phone: Start: 09-27-2016 End: 11-02-2016 DJN Rosendo Upton MD Work Phone: Start: 09-27-2016 End: 10-19-2016 Echocardiography Rosendo Upton MD Work Phone: Start: 09-27-2016 End: 11-02-2016 Follow Up Appt 1 month Rosendo Upton MD Work Phone: Start: 09-27-2016 End: 10-19-2016 Left Heart Cath Rosendo Upton MD Work Phone: Start: 09-27-2016 End: 10-15-2016 Lipid 1996 panel - Serum or Plasma Rosendo Upton MD Work Phone: Start: 09-27-2016 End: 10-15-2016 Thyrotropin [Units/volume] in Serum or Plasma Rosendo Upton MD Work Phone: Start: 09-27-2016 End: 10-15-2016 Thyroxine (T4) [Mass/volume] in Serum or Plasma Rosendo Upton MD Work Phone: History of tonsillectomy History of tonsillectomy SARS-CoV-2 & FLU Ant igen (Rapid) Dr. Getachew Nicholas Work Phone: Plan of Treatment Date Care Activity Detail Author Start: 06-14-2022 [facility] Start: 05-21-2017 End: 05-21-2017 Appointment Appointment [facility] Work Phone: Start: 05-06-2017 End: 05-06-2017 Appointment Appointment [facility] Work Phone: Start: 04-17-2017 End: 10-24-2016 *Hepatic Function Panel *Hepatic Function Panel [facility] Work Phone: Start: 04-17-2017 End: 10-24-2016 Lipid panel [AGGREGATE] *Lipid Profile CC PCP [facility] Work Phone: Start: 03-15-2017 End: 03-15-2017 Appointment Appointment [employer] Work Phone: Start: 02-20-2017 End: 02-20-2017 [facility] Phone: Start: 02-20-2017 End: 02-20-2017 Follow Up Appt 3 months Follow Up Appt 3 months [facility] Phone: Start: 02-20-2017 End: 02-20-2017 Appointment Appointment [facility] Phone: Start: 11-23-2016 End: 11-23-2016 Ecg routine ecg w/least 12 lds w/i&r EKG (In office) [facility] Phone: Start: 11-13-2016 End: 11-13-2016 DMB DMB [facility] Phone: Start: 11-13-2016 End: 11-13-2016 Follow Up Appt 3 months Follow Up Appt 3 months [facility] Phone: Start: 11-13-2016 End: 11-13-2016 Titration with Follow up (pt not on cpap) Titration with Follow up (pt not on cpap) [facility] Phone: Start: 11-07-2016 End: 11-07-2016 *BMP *BMP [facility] Phone: Start: 11-02-2016 End: 11-02-2016 DJN DJN [facility] Phone: Start: 11-02-2016 End: 11-14-2016 Ecg routine ecg w/least 12 lds w/i&r EKG (In office) [facility] Phone: Start: 11-02-2016 End: 11-02-2016 Follow Up Appt 6 months Follow Up Appt 6 months [facility] Phone: Start: 10-19-2016 End: 10-19-2016 Cardioversion Cardioversion [facility] Phone: Start: 10-04-2016 End: 11-02-2016 Follow Up BP Check Follow Up BP Check [facility] Phone: Start: 09-27-2016 End: 10-15-2016 *BMP *BMP [facility] Phone: Start: 09-27-2016 End: 10-15-2016 *Hepatic Function Panel *Hepatic Function Panel [facility] Phone: Start: 09-27-2016 End: 10-19-2016 Chest x-ray X-Ray, Chest, PA & Lateral [facility] Phone: Start: 09-27-2016 End: 09-27-2016 Complete sleep workup (PSG,CPAP as indicated) & Follow up Complete sleep workup (PSG,CPAP as indicated) & Follow up [facility] Phone: Start: 09-27-2016 End: 11-02-2016 DJN DJN [facility] Phone: Start: 09-27-2016 End: 09-27-2016 Echocardiography Echocardiogram (complete) [facility] Phone: Start: 09-27-2016 End: 11-02-2016 Follow Up Appt 1 month Follow Up Appt 1 month [facility] Phone: Start: 09-27-2016 End: 09-27-2016 Left Heart Cath Left Heart Cath [facility] Phone: Start: 09-27-2016 End: 10-15-2016 Lipid panel [AGGREGATE] *Lipid Profile CC PCP [facility] Phone: Start: 09-27-2016 End: 10-15-2016 Thyroid stimulating hormone (TSH) *TSH [facility] Phone: Start: 09-27-2016 End: 10-15-2016 Thyroxine (T4) *T4 (Total) [facility] Work Phone: Patient Education [facility] Work Phone: Patient referral [facility] Work Phone: Payers Date Payer Category Payer Self-pay [id number] 2023 Medicare [id number] [facility] [id number] 2023 Unknown [id number] 2016 Unknown [id number] 1959 Unknown [id number] Unknown [id number] [id number] Unknown [id number] 2.16.8 [id number] Unknown [id number] 2.16.8 [id number] Unknown [id number] 2.16.8 [id number] Unknown [id number] 2.16.8 [id number] Unknown [id number] 2.16.8 [id number] Unknown [id number] 2.16.8 [id number] Unknown [id number] 2.16.8 [id number] Social History Date Type Detail Facility Start: 01-09-2021 End: 01-08-2023 Tobacco smoking status NHIS Unknown if ever smoked [facility] Start: 09-21-2018 Spouse/ Signif icant Other [facility] Start: 1955 Sex Assigned At Male [facility] Evaluation note Note Date & Type Note Facility Evaluation note No assessment information availa ble [facility] Work Phone: Evaluation note Note Date & Type Note Facility Evaluation note Diagnosis Onset Date Essential hypertension chron ic HLD (hyperlipidemia) chronic Longstanding persistent atrial fibrillation chronic NANETTE (obstructive sleep apnea) [facility] Work Phone: Evaluation note Note Date & Type Note Facility Evaluation note Diagnosis Onset Date Essential hypertension chron ic HLD (hyperlipidemia) chronic Longstanding persistent atrial fibrillation [facility] Work Phone: Summary Purpose Family History No Family History Records Found Relationship Condition Age at Onset Recorded Date/T christi mother Hypertension Unknown Advance Directives No Advanced Directives Records Found Advance Directive Response Recorded Date/ Time Living Will Yes September 20, 2018 11:42pm Power of Pharmacy Student Yes September 20 11:42pm Advance Directive Response Recorded Date/ Time Living Will Yes September 20, 2018 10:42pm Power of Pharmacy Student Yes September 20 10:42pm Advance Directive Response Recorded Date/ Time Name of Medical Power of Pharmacy Student valdo [email or web address] June 14, 2022 6:12pm Living Will Yes June 14, 2022 6:12pm Power of Pharmacy Student Yes June 14 3 6:12pm Advance Directive Response Recorded Date/ Time Living Will Yes June 14, 2022 6:12pm Power of Pharmacy Student Yes June 14 3 6:12pm Chief Complaint and Reason for Visit Chief Complaint THYROID NODULE Chief Complaint 1 y fu(RS FROM 07/25, 07/07) 1 Y FU Reason for Visit Essential hypertensi on HLD (hyperlipidemia) Longstanding persistent atrial fibrillation NANETTE (obstructive sleep apnea) Chief Complaint 6 M FU EORDER Reason for Visit Essential hypertensi on HLD (hyperlipidemia) Longstanding persistent atrial fibrillation Chief Complaint 6 M FU EORDER Abnormal levels of other serum enzymes Reason for Visit Essential hypertensi on HLD (hyperlipidemia) Longstanding persistent atrial fibrillation Chief Complaint 6 M FU EORDER Abnormal levels of other serum enzymes CIRRHOSIS OF LIVER Reason for Visit Essential hypertensi on HLD (hyperlipidemia) Longstanding persistent atrial fibrillation Chief Complaint 6 M FU EORDER Abnormal levels of other serum enzymes CIRRHOSIS OF LIVER LEFT LOWER LEG RED Reason for Visit Essential hypertensi on HLD (hyperlipidemia) Longstanding persistent atrial fibrillation Additional Source Comments (unrecognized sect ion and content) No Status Records FoundNo Status Records Found INFORMATION SOURCE (unrecogn ized section and content) DATE CREATED AUTHOR 10/02/2017 [facility] DATE CREATED AUTHOR AUTHOR'S KARINE DYER 08/05/2024 [facility] Goals (unrecognized section and content) Goals may be documented in a n alternate sectionGoals may be documented in an alternate sectionGoals may be documented in an alternate sectionGoals may be documented in an alternate sectionGoals may be documented in an alternate sectionGoals may be documented in an alternate sectionGoals may be documented in an alternate sectionGoals may be documented in an alternate section Care Teams (unrecognized sec tion and content) Team Status: Active Member Role Status Dates Dr. Getachew Ruffin MD Family Provider Active Dr. Getachew Nicholas MD Primary Care Provider Active Team Status: Inactive Member Role Status Dates Dr. Getachew Nicholas MD Primary Care Provider, Referr ing Provider Active Getachew Hillman SURFACER, SURFACERRjC Attending Provider Active Team Status: Inactive Member Role Status Dates Dr. Getachew Nicholas MD Primary Care Pr ovider, Attending Provider, Referring Provider Active Team Status: Active Member Role Status Dates Dr. Getachew Nicholas MD Primary Care Pr ovider, Attending Provider, Referring Provider Active Team Status: Inactive Member Role Status Dates Dr. Getachew Nicholas MD Primary Care Provider Active Dr. Quincy Alaniz MD Emergency Provider Active Team Status: Inactive Member Role Status Dates Dr. Getachew Nicholas MD Primary Care Provider, Attend ing Provider Active FOR RECORDS PERTAINING TO PATIENTS WHO ARE OR HAVE BEEN ENROLLED IN A CHEMICAL DEPENDENCY/SUBSTANCEABUSE PROGRAM, SOME INFORMATION MAY BE OMITTED. This clinical summary was aggregated from multiple sources. Caution should be exercised in using it in the provision of clinical care. This summary normalizes information from multiple sources, and as a consequence, information in this document may materially change the coding, format and clinical context of patient data. In addition, data may be omitted in some cases. CLINICAL DECISIONS SHOULD BE BASED ON THE PRIMARY CLINICAL RECORDS. [employer] [facility]. provides no warranty or guarantee of the accuracy or completeness of information in this document.
== END | disposition home or self-care (01) ==
LOC: CVS 13:01
PROVIDERS: PCP Family Medicine; Referring Provider Internal Medicine Cardiovascular Disease; Visit Provider Internal Medicine Cardiovascular Disease
DX: I48.11 Longstanding persistent atrial fibrillation (principal)
CPT/HCPCS: 93306

== ENCOUNTER → 2024-10-27 | Outpatient (CLI) | payer MEDICARE, OTHER, SELFPAY ==
[2024-10-27 15:26] LABS: Hematocrit 36.2 % (40-54); Hemoglobin 12.3 g/dL (13.0-16.5); Immature Granulocytes Count 0.030 X10^3/uL (0.0-0.0); Mean Corp Hgb Conc 34.0 g/dL (32-36); Mean Corpuscular Volume 96.8 fL (80-94); Mean Platelet Vol. 10.5 fl (6.2-12.0); NRBC Flagged by Analyzer 0 % (0-5); Platelet Count 267 K/mm3 (150-450); RBC Distribution Width CV 12.9 % (11.6-14.6); RBC Distribution Width SD 46.0 fl (35.1-43.9); Red Blood Count 3.74 M/mm3 (4.6-6.2); White Blood Count 8.3 K/mm3 (4.4-11.0)
[2024-10-27 16:47] LABS: AST(SGOT) 35 U/L (<=37); Alanine Aminotransfer ALT/SGPT 31 U/L (<=46); Albumin, Serum 4.4 g/dL (3.4-4.8); Alkaline Phosphatase 199 U/L (40-129); Anion Gap 16 (5-15); BUN 23 mg/dL (4-19); BUN/Creat Ratio 17.1 RATIO (10-20); Calcium,Total 9.7 mg/dL (7.6-11.0); Carbon Dioxide 23.0 mmol/L (21.0-32.0); Chloride 103 mmol/L (98-108); Cholesterol 122 mg/dL (<=200); Globulin 3.0 g/dL (2.2-4.2); Glucose 115 mg/dL (70-99); Low Density Lipoprotein Calc. 28 mg/dL; PSA,Total - Annual Screen 2.79 ng/mL (0.02-4.00); Potassium 4.0 mmol/L (3.3-5.1); Triglycerides 186 mg/dL; Very Low Density Lipoprotein 37 mg/dL (5-40); cholesterol:hdl ratio screen 2.16
== END | disposition home or self-care (01) ==
LOC: MFPLAB 11:30
PROVIDERS: PCP Family Medicine; Referring Provider Family Medicine; Visit Provider Family Medicine
DX: E78.00 Pure hypercholesterolemia, unspecified (principal); Z12.5 Encounter for screening for malignant neoplasm of prostate; I10 Essential (primary) hypertension
CPT/HCPCS: 36415; 80053; 80061; 83036; 84153; 85025; G0103